=== PATIENT | female | born 1955 | race Caucasian/White ===

== ENCOUNTER 2017-05-21 23:54 | Inpatient (IN) | payer MEDICARE, OTHER ==
[~2017-05-21] VITALS: Ht 165.1 cm; Wt 78.7 kg
[~2017-05-21 23:54] MED LIST: ALPR-624 PO; ASPI81TA52 PO; CYCL-1 PO; FENTANYL PAIN PUMP; HYDR-569 PO; MELO-102 PO; METO-539 PO; NEXIUM PO; OXYC10TA47 PO; PRED20TA PO; PREG50CA PO; etomidate 2mg/ml inj. ONE; rocuronium 10mg/ml inj IV ONE
[2017-05-22] VITALS (16 sets, daily range): BP systolic 97–131; BP diastolic 60–85
[2017-05-22] MEDS ORDERED: dexamethasone sod phosphate 10mg/ml inj IV STA (00:17)
[2017-05-22] MEDS ORDERED: ipratropium/albuterol 3ml nebule NEB ONE ×2 (00:20→05:30)
[2017-05-22] MEDS ORDERED: levoFLOXACIN-Levaquin 750MG/D5 150 ML IV ONE (00:20)
[2017-05-22] MEDS ORDERED: CefTRIAXone 2gm/NS 100ml IVPB 100 ML IV ONE (00:20)
[2017-05-22 00:33] LABS: BASOPHILS # (AUTO) 0.1 X10'3 (0-0.2); BASOPHILS % (AUTO) 0.6 % (0-1); EOSINOPHILS # (AUTO) 1.1 X10'3 (0-0.9); EOSINOPHILS % (AUTO) 10.1 % (0-6); HEMATOCRIT 33.3 % (35.0-45.0); HEMOGLOBIN 10.7 g/dl (12.0-16.0); LYMPHOCYTES # (AUTO) 1.4 X10'3 (1.1-4.8); LYMPHOCYTES % (AUTO) 12.7 % (21-51); MEAN CORPUSCULAR HEMOGLOBIN 25.8 PG (27.0-31.0); MEAN CORPUSCULAR HGB CONC 32.1 % (33.0-36.5); MEAN CORPUSCULAR VOLUME 80.2 FL (78-98); MEAN PLATELET VOLUME 8.2 FL (7.4-10.4); MONOCYTES # (AUTO) 0.8 X10'3 (0-0.9); MONOCYTES % (AUTO) 6.9 % (2-12); NEUTROPHILS # (AUTO) 7.7 X10'3 (1.8-7.7); NEUTROPHILS % (AUTO) 69.7 % (42-75); PLATELET COUNT 311 X10'3 (140-440); RED BLOOD COUNT 4.15 X10'6 (4.20-5.60); RED CELL DISTRIBUTION WIDTH 17.2 % (11.5-14.5)
[2017-05-22 00:46] LABS: ABG BASE EXCESS 3.6 mmol/L (-2.0-3.0); ABG HCO3 32.4 mmol/L (22.0-26.0); ABG OXYGEN SATURATION 98.5 % (95-98); ABG PCO2 (T) 67.2 mmHg (32.0-45.0); ABG PO2 (T) 118.2 mmHg (83-108); ALLEN'S TEST Positive; FCOHb 0.7 % (0.5-1.5); FMetHb 0.3 % (0.3-1.12); FO2Hb 97.5 % (94-100); PATIENT TEMPERATURE 34.7; PEEP 8 cm H2O; TOTAL HEMOGLOBIN 11.3 G/dl (12.0-16.0)
[2017-05-22 01:05] LABS: ALANINE AMINOTRANSFERASE 21 U/L (12-78); ALBUMIN 3.3 G/DL (3.4-5.0); ALBUMIN/GLOBULIN RATIO 0.8 (1.1-1.5); ALKALINE PHOSPHATASE 160 IU/L (46-116); ANION GAP 1 (8-16); ASPARTATE AMINO TRANSFERASE 19 U/L (10-37); BILIRUBIN,TOTAL 0.3 MG/DL (0.1-1.0); BLOOD UREA NITROGEN 13 MG/DL (7-18); BUN/CREATININE RATIO 16.3 (6.6-38.0); CALCIUM 8.9 MG/DL (8.5-10.1); CHLORIDE 104 MMOL/L (99-107); GLUCOSE 121 MG/DL (70-104); POTASSIUM 4.8 MMOL/L (3.5-5.1); SODIUM 143 MMOL/L (135-145); TOTAL CARBON DIOXIDE 37.8 MMOL/L (24-32); TOTAL PROTEIN 7.3 G/DL (6.4-8.2); eGFR 72 ML/MIN
[2017-05-22 02:21] LABS: ABG BASE EXCESS 9.3 mmol/L (-2.0-3.0); ABG HCO3 37.6 mmol/L (22.0-26.0); ABG OXYGEN SATURATION 94.3 % (95-98); ABG PCO2 (T) 73.6 mmHg (32.0-45.0); ABG PH (T) 7.323 (7.350-7.450); ABG PO2 (T) 72.5 mmHg (83-108); ALLEN'S TEST Positive; FCOHb 0.6 % (0.5-1.5); FMetHb 0.1 % (0.3-1.12); FO2Hb 93.6 % (94-100); MINUTE VOLUME 8 L/min; PATIENT TEMPERATURE 36.4; PEEP 5 cm H2O; RESPIRATORY RATE 16 b/min; RESPIRATORY RATE (OBSERVED) 20 b/min; TOTAL HEMOGLOBIN 10.7 G/dl (12.0-16.0)
[2017-05-22] MEDS ORDERED: fentaNYL/PF 50MCG/1 ML 2ML syringe IV ONE (02:45)
[2017-05-22] MEDS ORDERED: propofol 1000mg/100ml bottle 100 ML IV ONE ×2 (02:45→04:37)
[2017-05-22] MEDS ORDERED: rocuronium 10mg/ml inj IV ONE (02:45)
[2017-05-22] MEDS ORDERED: MIDAZolam 5mg/ml 2ml vial IV ONE (02:45)
[2017-05-22] MEDS ORDERED: etomidate 2mg/ml inj. IV ONE (02:45)
[2017-05-22] MEDS ORDERED: ipratropium/albuterol 3ml nebule ONE (04:52)
[2017-05-22 05:31] LABS: ABG HCO3 34.7 mmol/L (22.0-26.0); ABG OXYGEN SATURATION 96.5 % (95-98); ABG PCO2 (T) 59.3 mmHg (32.0-45.0); ABG PH (T) 7.386 (7.350-7.450); FCOHb 0.7 % (0.5-1.5); FMetHb 0.1 % (0.3-1.12); FO2Hb 95.7 % (94-100); MINUTE VOLUME 7 L/min; PATIENT TEMPERATURE 37.1; PEEP 5 cm H2O; RESPIRATORY RATE 18 b/min; RESPIRATORY RATE (OBSERVED) 18 b/min; TIDAL VOLUME 400 mL; TOTAL HEMOGLOBIN 11.3 G/dl (12.0-16.0)
[2017-05-22] MEDS ORDERED: potassium Cl 40MEQ/NS 500ml 500 ML IV PRN ×2 (05:50)
[2017-05-22] MEDS ORDERED: magnesium 4gm in 100ml NS 100 ML IV PRN (05:50)
[2017-05-22] MEDS ORDERED: magnesium 2GM in 50ml NS 50 ML IV PRN (05:50)
[2017-05-22] MEDS ORDERED: midazolam 100mg in NS 100ml 100 ML IV PRN (05:58)
[2017-05-22] MEDS ORDERED: midazolam 2 mg/2 ml injection IV ONE (06:00)
[2017-05-22] MEDS ORDERED: fentaNYL/PF 50MCG/1 ML 2ML syringe IV PRN (06:00)
[2017-05-22] MEDS: ipratropium/albuterol 3ml nebule NEB SCH ×4 (07:39→20:35)
[2017-05-22 08:11] LABS: OXYGEN SATURATION (MIXED VEN) 70.9 % (60-80); PO2 MIXED VENOUS (TEMP COR) 35.7 mmHg (35-46)
[2017-05-22] MEDS: heparin, porcine 5000 units/ml vial SQ SCH ×2 (08:25→20:11)
[2017-05-22] MEDS: pantoprazole 40 MG vial IV SCH (08:25)
[2017-05-22 09:06] LABS: MAGNESIUM 2.4 MG/DL (1.5-2.4); PHOSPHORUS 4.8 MG/DL (2.3-4.5)
[2017-05-22] MEDS ORDERED: etomidate 2mg/ml inj. ONE (10:00)
[2017-05-22] MEDS: azithromycin/NS 500mg/250ml 250 ML IV SCH (10:39)
[2017-05-22] MEDS: FENTANYL-0.9 % NACL/PF 100 ML IV PRN ×2 (13:52→20:12)
[2017-05-22] MEDS ORDERED: methylPREDNISolone sod succ 125mg/2ml vial IV SCH (14:00)
[2017-05-22] MEDS: methylPREDNISolone sod succ 125mg/2ml vial IV SCH ×2 (14:41→20:11)
[2017-05-22] MEDS: lactobacillus rhamnosus 10,000 MMU CELLS/CAPSULE PO SCH (16:58)
[2017-05-22] MEDS: propofol 1000mg/100ml bottle 100 ML IV PRN (17:00)
[2017-05-23] VITALS (25 sets, daily range): BP systolic 106–132; BP diastolic 49–89
[2017-05-23 03:41] LABS: ABG BASE EXCESS 4.8 mmol/L (-2.0-3.0); ABG HCO3 29.5 mmol/L (22.0-26.0); ABG OXYGEN SATURATION 93.7 % (95-98); ABG PCO2 (T) 44.5 mmHg (32.0-45.0); ABG PO2 (T) 68.7 mmHg (83-108); FCOHb 0.3 % (0.5-1.5); FMetHb 0.3 % (0.3-1.12); FO2Hb 93.1 % (94-100); MINUTE VOLUME 7 L/min; PATIENT TEMPERATURE 37.2; PEEP 5 cm H2O; RESPIRATORY RATE 18 b/min; RESPIRATORY RATE (OBSERVED) 18 b/min; TIDAL VOLUME 400 mL; TOTAL HEMOGLOBIN 10.3 G/dl (12.0-16.0)
[2017-05-23] MEDS: FENTANYL-0.9 % NACL/PF 100 ML IV PRN ×4 (03:56→23:22)
[2017-05-23] MEDS: methylPREDNISolone sod succ 125mg/2ml vial IV SCH ×4 (03:56→19:44)
[2017-05-23 05:34] LABS: BASOPHILS % (AUTO) 0.1 % (0-1); EOSINOPHILS % (AUTO) 0.8 % (0-6); HEMATOCRIT 28.1 % (35.0-45.0); HEMOGLOBIN 9.3 g/dl (12.0-16.0); LYMPHOCYTES % (AUTO) 21.6 % (21-51); MEAN CORPUSCULAR HEMOGLOBIN 25.9 PG (27.0-31.0); MEAN CORPUSCULAR HGB CONC 33.1 % (33.0-36.5); MEAN CORPUSCULAR VOLUME 78.3 FL (78-98); MEAN PLATELET VOLUME 8.7 FL (7.4-10.4); MONOCYTES # (AUTO) 0.1 X10'3 (0-0.9); MONOCYTES % (AUTO) 2.9 % (2-12); NEUTROPHILS # (AUTO) 3.5 X10'3 (1.8-7.7); NEUTROPHILS % (AUTO) 74.6 % (42-75); PLATELET COUNT 272 X10'3 (140-440); RED BLOOD COUNT 3.59 X10'6 (4.20-5.60); RED CELL DISTRIBUTION WIDTH 16.6 % (11.5-14.5); WHITE BLOOD COUNT 4.6 X10'3 (4.5-11.0)
[2017-05-23 06:08] LABS: PARTIAL THROMBOPLASTIN TIME 29 SECONDS (22-32); PROTHROMBIN TIME 10.8 SECONDS (9.0-12.0)
[2017-05-23 06:16] LABS: ALANINE AMINOTRANSFERASE 18 U/L (12-78); ALBUMIN 2.4 G/DL (3.4-5.0); ALBUMIN/GLOBULIN RATIO 0.7 (1.1-1.5); ALKALINE PHOSPHATASE 113 IU/L (46-116); ANION GAP 5 (8-16); ASPARTATE AMINO TRANSFERASE 14 U/L (10-37); BILIRUBIN,TOTAL 0.2 MG/DL (0.1-1.0); BLOOD UREA NITROGEN 19 MG/DL (7-18); BUN/CREATININE RATIO 27.1 (6.6-38.0); CALCIUM 8.1 MG/DL (8.5-10.1); CHLORIDE 105 MMOL/L (99-107); GLUCOSE 124 MG/DL (70-104); MAGNESIUM 2.1 MG/DL (1.5-2.4); POTASSIUM 3.9 MMOL/L (3.5-5.1); SODIUM 141 MMOL/L (135-145); TOTAL CARBON DIOXIDE 31.2 MMOL/L (24-32); TOTAL PROTEIN 5.8 G/DL (6.4-8.2); eGFR 84 ML/MIN
[2017-05-23] MEDS: ipratropium/albuterol 3ml nebule NEB SCH ×3 (07:10→21:09)
[2017-05-23] MEDS: lactobacillus rhamnosus 10,000 MMU CELLS/CAPSULE PO SCH ×2 (07:53→17:38)
[2017-05-23] MEDS: pantoprazole 40 MG vial IV SCH ×2 (07:53→09:13)
[2017-05-23] MEDS: mineral oil/petrolatum ophthal oint EACHEYE SCH ×3 (08:00→19:44)
[2017-05-23] MEDS: azithromycin/NS 500mg/250ml 250 ML IV SCH (08:03)
[2017-05-23] MEDS: cefTRIAXone 1g/NS 100ml IVPB 100 ML IV SCH (09:13)
[2017-05-23] MEDS: heparin, porcine 5000 units/ml vial SQ SCH ×2 (09:14→19:44)
[2017-05-23] MEDS ORDERED: racepinephrine 11.25mg/0.5ml nebule NEB PRN (10:15)
[2017-05-23] MEDS: ipratropium/albuterol 3ml nebule NEB PRN (10:51)
[2017-05-23] MEDS: propofol 1000mg/100ml bottle 100 ML IV PRN ×3 (11:09→23:22)
[2017-05-23 16:50] LABS: ABG BASE EXCESS 4.2 mmol/L (-2.0-3.0); ABG HCO3 29.5 mmol/L (22.0-26.0); ABG OXYGEN SATURATION 93.5 % (95-98); ABG PCO2 (T) 47.6 mmHg (32.0-45.0); ABG PO2 (T) 70.7 mmHg (83-108); ALLEN'S TEST Positive; FCOHb 0.3 % (0.5-1.5); FMetHb 0.2 % (0.3-1.12); MINUTE VOLUME 10 L/min; PEEP 5 cm H2O; RESPIRATORY RATE 18 b/min; RESPIRATORY RATE (OBSERVED) 18 b/min; TIDAL VOLUME 400 mL; TOTAL HEMOGLOBIN 10.8 G/dl (12.0-16.0)
[2017-05-24] VITALS (24 sets, daily range): BP systolic 107–157; BP diastolic 65–91
[2017-05-24] MEDS ORDERED: CLON-528 PO (00:36)
[2017-05-24] MEDS ORDERED: UMEC1DIS INH (00:36)
[2017-05-24] MEDS ORDERED: ALBU18HF2 INH (00:36)
[2017-05-24] MEDS ORDERED: ESOM40CA30 PO (00:36)
[2017-05-24] MEDS ORDERED: LIOT5TAB7 PO (00:36)
[2017-05-24] MEDS ORDERED: ESCI20TA PO (00:36)
[2017-05-24] MEDS ORDERED: PROG200C7 PO (00:36)
[2017-05-24] MEDS ORDERED: ATOR10TA70 PO (00:36)
[2017-05-24] MEDS ORDERED: LEVO250T2 PO (00:36)
[2017-05-24] MEDS ORDERED: CYCL-394 PO (00:36)
[2017-05-24] MEDS ORDERED: IPRA3AMP9 IH (00:36)
[2017-05-24] MEDS ORDERED: ESCI10TA54 PO (00:36)
[2017-05-24] MEDS ORDERED: HYDR-565 PO (00:36)
[2017-05-24] MEDS: mineral oil/petrolatum ophthal oint EACHEYE SCH ×4 (01:49→19:37)
[2017-05-24] MEDS: methylPREDNISolone sod succ 125mg/2ml vial IV SCH ×4 (01:49→19:34)
[2017-05-24] MEDS: ipratropium/albuterol 3ml nebule NEB SCH ×2 (02:19→09:04)
[2017-05-24 02:21] LABS: PARTIAL THROMBOPLASTIN TIME 27 SECONDS (22-32); PROTHROMBIN TIME 10.7 SECONDS (9.0-12.0)
[2017-05-24 02:27] LABS: ALANINE AMINOTRANSFERASE 20 U/L (12-78); ALBUMIN 2.5 G/DL (3.4-5.0); ALBUMIN/GLOBULIN RATIO 0.8 (1.1-1.5); ALKALINE PHOSPHATASE 105 IU/L (46-116); ANION GAP 6 (8-16); ASPARTATE AMINO TRANSFERASE 23 U/L (10-37); BASOPHILS % (AUTO) 0.2 % (0-1); BILIRUBIN,TOTAL 0.2 MG/DL (0.1-1.0); BLOOD UREA NITROGEN 23 MG/DL (7-18); BUN/CREATININE RATIO 32.9 (6.6-38.0); CALCIUM 8.2 MG/DL (8.5-10.1); CHLORIDE 106 MMOL/L (99-107); EOSINOPHILS % (AUTO) 0.8 % (0-6); GLUCOSE 134 MG/DL (70-104); HEMATOCRIT 28.2 % (35.0-45.0); HEMOGLOBIN 9.3 g/dl (12.0-16.0); LYMPHOCYTES # (AUTO) 0.8 X10'3 (1.1-4.8); LYMPHOCYTES % (AUTO) 15.2 % (21-51); MAGNESIUM 2.1 MG/DL (1.5-2.4); MEAN CORPUSCULAR HGB CONC 32.9 % (33.0-36.5); MEAN CORPUSCULAR VOLUME 79.1 FL (78-98); MEAN PLATELET VOLUME 8.6 FL (7.4-10.4); MONOCYTES # (AUTO) 0.1 X10'3 (0-0.9); MONOCYTES % (AUTO) 2.9 % (2-12); NEUTROPHILS # (AUTO) 4.2 X10'3 (1.8-7.7); NEUTROPHILS % (AUTO) 80.9 % (42-75); PLATELET COUNT 283 X10'3 (140-440); POTASSIUM 3.5 MMOL/L (3.5-5.1); RED BLOOD COUNT 3.56 X10'6 (4.20-5.60); RED CELL DISTRIBUTION WIDTH 16.6 % (11.5-14.5); SODIUM 143 MMOL/L (135-145); TOTAL CARBON DIOXIDE 30.6 MMOL/L (24-32); TOTAL PROTEIN 5.7 G/DL (6.4-8.2); WHITE BLOOD COUNT 5.2 X10'3 (4.5-11.0); eGFR 84 ML/MIN
[2017-05-24] MEDS: propofol 1000mg/100ml bottle 100 ML IV PRN (03:09)
[2017-05-24] MEDS: FENTANYL-0.9 % NACL/PF 100 ML IV PRN ×2 (03:09→08:33)
[2017-05-24 03:16] LABS: ABG BASE EXCESS 2.9 mmol/L (-2.0-3.0); ABG HCO3 27.8 mmol/L (22.0-26.0); ABG OXYGEN SATURATION 94.5 % (95-98); ABG PCO2 (T) 44.3 mmHg (32.0-45.0); ABG PH (T) 7.416 (7.350-7.450); ABG PO2 (T) 78.5 mmHg (83-108); FCOHb 0.2 % (0.5-1.5); FMetHb 0.3 % (0.3-1.12); MINUTE VOLUME 8 L/min; PATIENT TEMPERATURE 37.2; PEEP 5 cm H2O; RESPIRATORY RATE 18 b/min; RESPIRATORY RATE (OBSERVED) 18 b/min; TIDAL VOLUME 400 mL; TOTAL HEMOGLOBIN 10.5 G/dl (12.0-16.0)
[2017-05-24] MEDS: lactobacillus rhamnosus 10,000 MMU CELLS/CAPSULE PO SCH ×2 (07:41→18:09)
[2017-05-24] MEDS: cefTRIAXone 1g/NS 100ml IVPB 100 ML IV SCH (07:42)
[2017-05-24] MEDS: heparin, porcine 5000 units/ml vial SQ SCH ×2 (07:42→19:34)
[2017-05-24] MEDS: azithromycin/NS 500mg/250ml 250 ML IV SCH (08:32)
[2017-05-24] MEDS ORDERED: ipratropium/albuterol 3ml nebule NEB PRN (10:50)
[2017-05-24] MEDS ORDERED: racepinephrine 11.25mg/0.5ml nebule NEB PRN (10:50)
[2017-05-24] MEDS: ipratropium/albuterol 3ml nebule NEB PRN (10:59)
[2017-05-24] MEDS ORDERED: albuterol 2.5 MG/3 ML nebule NEB PRN (12:15)
[2017-05-24] MEDS ORDERED: CefTRIAXone 1 gm/50ml D5W ADV 50 ML IV SCH (12:19)
[2017-05-24] MEDS: ipratropium/albuterol 3ml nebule IH SCH ×2 (14:39→23:28)
[2017-05-24] MEDS: HYDROcodone/acetaminophen 10/325mg tab PO SCH ×2 (14:51→19:36)
[2017-05-24] MEDS ORDERED: ipratropium/albuterol 3ml nebule NEB SCH (15:00)
[2017-05-24] MEDS: clonazePAM 0.5mg tablet PO SCH (19:35)
[2017-05-24] MEDS: metoprolol succinate 25mg (24-HOUR) SR. Tablet PO SCH (19:35)
[2017-05-24] MEDS: PROGESTERONE MICRONIZED 200 MG PO SCH (19:36)
[2017-05-24] MEDS: pregabalin 25mg capsule PO SCH (19:36)
[2017-05-25] VITALS (18 sets, daily range): BP systolic 109–146; BP diastolic 64–94
[2017-05-25] MEDS: mineral oil/petrolatum ophthal oint EACHEYE SCH ×4 (01:20→19:34)
[2017-05-25] MEDS: HYDROcodone/acetaminophen 10/325mg tab PO SCH ×4 (01:58→19:34)
[2017-05-25] MEDS: methylPREDNISolone sod succ 125mg/2ml vial IV SCH ×4 (01:58→19:31)
[2017-05-25 02:42] LABS: PARTIAL THROMBOPLASTIN TIME 27 SECONDS (22-32); PROTHROMBIN TIME 10.7 SECONDS (9.0-12.0)
[2017-05-25 02:48] LABS: ALANINE AMINOTRANSFERASE 24 U/L (12-78); ALBUMIN 2.8 G/DL (3.4-5.0); ALBUMIN/GLOBULIN RATIO 0.8 (1.1-1.5); ALKALINE PHOSPHATASE 106 IU/L (46-116); ANION GAP 7 (8-16); ASPARTATE AMINO TRANSFERASE 19 U/L (10-37); BILIRUBIN,TOTAL 0.3 MG/DL (0.1-1.0); BLOOD UREA NITROGEN 25 MG/DL (7-18); BUN/CREATININE RATIO 29.4 (6.6-38.0); CALCIUM 8.5 MG/DL (8.5-10.1); CHLORIDE 107 MMOL/L (99-107); CREATININE 0.85 MG/DL (0.40-0.90); GLUCOSE 132 MG/DL (70-104); MAGNESIUM 2.1 MG/DL (1.5-2.4); POTASSIUM 3.9 MMOL/L (3.5-5.1); PREALBUMIN 20.3 MG/DL (19-36); SODIUM 146 MMOL/L (135-145); TOTAL PROTEIN 6.3 G/DL (6.4-8.2); eGFR 67 ML/MIN
[2017-05-25 03:15] LABS: BASOPHILS % (AUTO) 0.1 % (0-1); EOSINOPHILS % (AUTO) 0.1 % (0-6); HEMATOCRIT 30.6 % (35.0-45.0); HEMOGLOBIN 10.2 g/dl (12.0-16.0); LYMPHOCYTES % (AUTO) 13.2 % (21-51); MEAN CORPUSCULAR HEMOGLOBIN 26.5 PG (27.0-31.0); MEAN CORPUSCULAR HGB CONC 33.4 % (33.0-36.5); MEAN CORPUSCULAR VOLUME 79.3 FL (78-98); MEAN PLATELET VOLUME 8.8 FL (7.4-10.4); MONOCYTES # (AUTO) 0.4 X10'3 (0-0.9); MONOCYTES % (AUTO) 4.9 % (2-12); NEUTROPHILS # (AUTO) 5.8 X10'3 (1.8-7.7); NEUTROPHILS % (AUTO) 81.7 % (42-75); PLATELET COUNT 321 X10'3 (140-440); RED BLOOD COUNT 3.86 X10'6 (4.20-5.60); RED CELL DISTRIBUTION WIDTH 16.1 % (11.5-14.5); WHITE BLOOD COUNT 7.2 X10'3 (4.5-11.0)
[2017-05-25] MEDS ORDERED: non-formulary drug (Esomeprazole Magnesium (Nexium) 1 CAP) PO SCH (08:00)
[2017-05-25] MEDS: Umeclidinium Brm/Vilanterol Tr (Anoro Ellipta 62.5-25 Mcg INH) IH SCH (08:00)
[2017-05-25] MEDS: pregabalin 25mg capsule PO SCH ×2 (08:04→19:34)
[2017-05-25] MEDS: lactobacillus rhamnosus 10,000 MMU CELLS/CAPSULE PO SCH ×2 (08:04→17:50)
[2017-05-25] MEDS: citalopram 20mg tablet PO SCH (08:04)
[2017-05-25] MEDS: atorvastatin 10mg tablet PO SCH (08:04)
[2017-05-25] MEDS: metoprolol succinate 25mg (24-HOUR) SR. Tablet PO SCH ×2 (08:05→19:34)
[2017-05-25] MEDS: pantoprazole 40 MG vial IV SCH (08:05)
[2017-05-25] MEDS: heparin, porcine 5000 units/ml vial SQ SCH ×2 (08:08→19:32)
[2017-05-25] MEDS: ipratropium/albuterol 3ml nebule IH SCH ×3 (08:41→23:20)
[2017-05-25] MEDS: clonazePAM 0.5mg tablet PO SCH ×2 (09:03→19:34)
[2017-05-25] MEDS: azithromycin/NS 500mg/250ml 250 ML IV SCH (09:03)
[2017-05-25] MEDS: liothyronine sod 5mcg tablet PO SCH (09:04)
[2017-05-25] MEDS ORDERED: LORazepam 2 mg/ml vial IV ONE (12:20)
[2017-05-25] MEDS: ipratropium/albuterol 3ml nebule NEB PRN ×2 (13:59→20:29)
[2017-05-25] MEDS: PROGESTERONE MICRONIZED 200 MG PO SCH (19:46)
[2017-05-26] MEDS: mineral oil/petrolatum ophthal oint EACHEYE SCH ×3 (01:31→14:26)
[2017-05-26] MEDS: ipratropium/albuterol 3ml nebule NEB PRN (02:59)
[2017-05-26 03:00] VITALS: BP 132/66
[2017-05-26] MEDS: HYDROcodone/acetaminophen 10/325mg tab PO SCH ×3 (03:00→14:25)
[2017-05-26] MEDS: methylPREDNISolone sod succ 125mg/2ml vial IV SCH ×3 (03:01→14:25)
[2017-05-26 03:39] LABS: BASOPHILS # (AUTO) 0.1 X10'3 (0-0.2); BASOPHILS % (AUTO) 0.7 % (0-1); EOSINOPHILS % (AUTO) 0 % (0-6); HEMOGLOBIN 10.4 g/dl (12.0-16.0); LYMPHOCYTES # (AUTO) 1.1 X10'3 (1.1-4.8); MEAN CORPUSCULAR HGB CONC 32.4 % (33.0-36.5); MEAN CORPUSCULAR VOLUME 80.3 FL (78-98); MEAN PLATELET VOLUME 9.3 FL (7.4-10.4); MONOCYTES # (AUTO) 0.4 X10'3 (0-0.9); MONOCYTES % (AUTO) 4.4 % (2-12); NEUTROPHILS # (AUTO) 8.2 X10'3 (1.8-7.7); NEUTROPHILS % (AUTO) 83.9 % (42-75); PLATELET COUNT 265 X10'3 (140-440); RED BLOOD COUNT 3.98 X10'6 (4.20-5.60); RED CELL DISTRIBUTION WIDTH 17.4 % (11.5-14.5); WHITE BLOOD COUNT 9.7 X10'3 (4.5-11.0)
[2017-05-26 06:00] VITALS: BP 133/81
[2017-05-26 06:48] LABS: ALANINE AMINOTRANSFERASE 27 U/L (12-78); ALBUMIN 2.8 G/DL (3.4-5.0); ALBUMIN/GLOBULIN RATIO 0.8 (1.1-1.5); ALKALINE PHOSPHATASE 108 IU/L (46-116); ANION GAP 5 (8-16); ASPARTATE AMINO TRANSFERASE 15 U/L (10-37); BILIRUBIN,TOTAL 0.2 MG/DL (0.1-1.0); BLOOD UREA NITROGEN 28 MG/DL (7-18); BUN/CREATININE RATIO 30.8 (6.6-38.0); CALCIUM 8.3 MG/DL (8.5-10.1); CHLORIDE 106 MMOL/L (99-107); CREATININE 0.91 MG/DL (0.40-0.90); GLUCOSE 130 MG/DL (70-104); MAGNESIUM 2.1 MG/DL (1.5-2.4); POTASSIUM 4.1 MMOL/L (3.5-5.1); SODIUM 146 MMOL/L (135-145); TOTAL CARBON DIOXIDE 34.6 MMOL/L (24-32); TOTAL PROTEIN 6.2 G/DL (6.4-8.2); eGFR 62 ML/MIN
[2017-05-26] MEDS: clonazePAM 0.5mg tablet PO SCH (07:51)
[2017-05-26] MEDS: atorvastatin 10mg tablet PO SCH (07:51)
[2017-05-26] MEDS: citalopram 20mg tablet PO SCH (07:52)
[2017-05-26] MEDS: lactobacillus rhamnosus 10,000 MMU CELLS/CAPSULE PO SCH (07:52)
[2017-05-26] MEDS: pregabalin 25mg capsule PO SCH (07:52)
[2017-05-26] MEDS: heparin, porcine 5000 units/ml vial SQ SCH (07:53)
[2017-05-26] MEDS: pantoprazole 40 MG vial IV SCH (07:53)
[2017-05-26] MEDS: metoprolol succinate 25mg (24-HOUR) SR. Tablet PO SCH (07:55)
[2017-05-26] MEDS: Umeclidinium Brm/Vilanterol Tr (Anoro Ellipta 62.5-25 Mcg INH) IH SCH (08:00)
[2017-05-26] MEDS: ipratropium/albuterol 3ml nebule IH SCH ×2 (09:04→15:39)
[2017-05-26] MEDS ORDERED: cefTRIAXone 1g/NS 100ml IVPB 100 ML IV SCH (09:33)
[2017-05-26] MEDS: liothyronine sod 5mcg tablet PO SCH (09:54)
[2017-05-26 11:00] VITALS: BP 142/83
[2017-05-26] MEDS ORDERED: LEVO250T2 PO (12:20)
[2017-05-26 15:00] VITALS: BP 136/76
== END 2017-05-26 18:06 | disposition home or self-care (01) | DRG 208 ==
LOC: ER 23:55 → ED HOLD 05-22 05:50 → ICU 2S 05-22 07:42 → PCU 3S 05-25 15:32
PROVIDERS: ADMIT Internal Medicine Critical Care Medicine; ATTEND Internal Medicine Critical Care Medicine
PROC: 5A09357 Assistance with Respiratory Ventilation, Less than 24 Consecutive Hours, Continuous Positive Airway Pressure (ICD-10-PCS; principal; 2017-05-22)
PROC: 5A1945Z Respiratory Ventilation, 24-96 Consecutive Hours (ICD-10-PCS; 2017-05-22)
PROC: 0BH17EZ Insertion of Endotracheal Airway into Trachea, Via Natural or Artificial Opening (ICD-10-PCS; 2017-05-22)
PROC: 02HV33Z Insertion of Infusion Device into Superior Vena Cava, Percutaneous Approach (ICD-10-PCS; 2017-05-22)
PROC: B548ZZA Ultrasonography of Superior Vena Cava, Guidance (ICD-10-PCS; 2017-05-22)
PROC: 5A1945Z Respiratory Ventilation, 24-96 Consecutive Hours (ICD-10-PCS; 2017-05-23)
PROC: 0BH17EZ Insertion of Endotracheal Airway into Trachea, Via Natural or Artificial Opening (ICD-10-PCS; 2017-05-23)
PROC: 5A09357 Assistance with Respiratory Ventilation, Less than 24 Consecutive Hours, Continuous Positive Airway Pressure (ICD-10-PCS; 2017-05-24)
DX: J96.22 Acute and chronic respiratory failure with hypercapnia (principal); J15.6 Pneumonia due to other Gram-negative bacteria; E87.4 Mixed disorder of acid-base balance; J44.0 Chronic obstructive pulmonary disease with (acute) lower respiratory infection; J44.1 Chronic obstructive pulmonary disease with (acute) exacerbation; G62.9 Polyneuropathy, unspecified; E78.00 Pure hypercholesterolemia, unspecified; F41.0 Panic disorder [episodic paroxysmal anxiety]; G89.29 Other chronic pain; F32.9 Major depressive disorder, single episode, unspecified; Z88.8 Allergy status to other drugs, medicaments and biological substances; Z79.899 Other long term (current) drug therapy; Z79.82 Long term (current) use of aspirin; Z99.81 Dependence on supplemental oxygen
CPT/HCPCS: 36415; 36556; 36600; 71045; 80053; 82803; 82810; 82948; 83605; 83735; 83880; 84100; 84134; 84145; 84443; 84484; 85018; 85025; 85610; 85730; 87040; 87070; 87077; 87186; 87502; 87503; 92616; 93005; 94002; 94003; 94640; 94660; 94760; 96365; 96368; 96375; 97110; 97116; 97162; 97530; 99291; A6213; A6257; A6258; A6449; A7015; C1751; C9113; J0456; J0696; J1100; J1644; J1956; J2060; J2250; J2704; J2930; J3010; J3490; J7030

== ENCOUNTER 2018-08-11 20:26 | Inpatient (IN) | payer MEDICARE, OTHER ==
[~2018-08-11] VITALS: Ht 167.6 cm; Wt 76.0 kg
[~2018-08-11 20:26] MED LIST changes: +ALBU18HF2 INH; -ALPR-624 PO; -ASPI81TA52 PO; +ATOR10TA70 PO; +CLON-528 PO; -CYCL-1 PO; +CYCL-394 PO; +ESCI20TA PO; +ESOM40CA49 PO; +HYDR-4353 PO; -HYDR-569 PO; +IPRA3AMP9 IH; +LEVO250T2 PO; +LIOT5TAB7 PO; -MELO-102 PO; -NEXIUM PO; -OXYC10TA47 PO; -PRED20TA PO; +PROG200C7 PO; +UMEC1DIS INH; -etomidate 2mg/ml inj. ONE; -rocuronium 10mg/ml inj IV ONE
--- NOTE | 2018-08-11 20:50 | NUR ---
PT WARM TO TOUCH, STATES SHE ONLY TOOK HER "REGULAR MEDS". RASH NOTED TO [facility]OR ARRIETA, DENIES RECENT ILLNESS.
--- NOTE | 2018-08-11 20:52 | NUR ---
OS PLACED AT 2LNC, MEDICS REPORT SAO2 IN 80'S SO O2 CONTINUED.
[2018-08-11 21:18] LABS: BASOPHILS # (AUTO) 0.1 X10'3 (0-0.2); BASOPHILS % (AUTO) 0.8 % (0-1); EOSINOPHILS # (AUTO) 0.2 X10'3 (0-0.9); EOSINOPHILS % (AUTO) 2.6 % (0-6); HEMATOCRIT 30.8 % (35.0-45.0); HEMOGLOBIN 9.9 g/dl (12.0-16.0); LYMPHOCYTES % (AUTO) 21.5 % (21-51); MEAN CORPUSCULAR HEMOGLOBIN 26.1 PG (27.0-31.0); MEAN CORPUSCULAR VOLUME 81.6 FL (78-98); MEAN PLATELET VOLUME 8.3 FL (7.4-10.4); MONOCYTES # (AUTO) 0.9 X10'3 (0-0.9); MONOCYTES % (AUTO) 9.9 % (2-12); NEUTROPHILS % (AUTO) 65.2 % (42-75); PLATELET COUNT 281 X10'3 (140-440); RED BLOOD COUNT 3.78 X10'6 (4.20-5.60); RED CELL DISTRIBUTION WIDTH 17.9 % (11.5-14.5); WHITE BLOOD COUNT 9.2 X10'3 (4.5-11.0)
[2018-08-11 21:19] LABS: CLARITY,URINE CLEAR (Clear); COLOR,URINE YELLOW (Yellow); GLUCOSE, URINE NEGATIVE (Neg); KETONES,URINE NEGATIVE (Neg); LEUKOCYTE ESTERASE ,URINE NEGATIVE (Neg); NITRITES, URINE NEGATIVE (Neg); OCCULT BLOOD,URINE MODERATE (Neg); PROTEIN,URINE NEGATIVE (Neg); UROBILINOGEN,URINE 0.2 E.U/dL (0.2-1.0)
[2018-08-11 21:20] LABS: UA COLLECTION TYPE STRAIGHT CATH
[2018-08-11 21:27] LABS: BACTERIA,URINE NONE SEEN /HPF (Neg); MUCUS STRANDS NONE SEEN /LPF (Neg); SQUAMOUS EPITHELIAL CELL,UR FEW /LPF (FEW); TRANSITIONAL EPI CELLS,URINE FEW /HPF; WBC,URINE NONE SEEN /HPF (0-4)
[2018-08-11 21:28] LABS: INR 1.1 INR; PARTIAL THROMBOPLASTIN TIME 33 SECONDS (22-32)
[2018-08-11 21:30] LABS: ALANINE AMINOTRANSFERASE 11 U/L (12-78); ALBUMIN 2.7 G/DL (3.4-5.0); ALBUMIN/GLOBULIN RATIO 0.7 (1.1-1.5); ALKALINE PHOSPHATASE 163 IU/L (46-116); ANION GAP 4 (8-16); ASPARTATE AMINO TRANSFERASE 13 U/L (10-37); BILIRUBIN,TOTAL 0.2 MG/DL (0.1-1.0); BLOOD UREA NITROGEN 9 MG/DL (7-18); BUN/CREATININE RATIO 8.9 (6.6-38.0); CALCIUM 8.4 MG/DL (8.5-10.1); CHLORIDE 103 MMOL/L (99-107); CREATININE 1.01 MG/DL (0.40-0.90); GLUCOSE 109 MG/DL (70-104); POTASSIUM 4.3 MMOL/L (3.5-5.1); SODIUM 143 MMOL/L (135-145); TOTAL CARBON DIOXIDE 36.2 MMOL/L (24-32); TOTAL PROTEIN 6.6 G/DL (6.4-8.2); eGFR 55 ML/MIN
[2018-08-11] MEDS ORDERED: normal saline 1000ML IV soln IVB ONE (22:10)
[2018-08-11 22:25] LABS: ETHANOL < 0.010 GM/DL (0.0-0.010)
[2018-08-11 22:41] LABS: URINE AMPHETAMINE SCREEN NEGATIVE (Neg); URINE BARBITUATE SCREEN NEGATIVE (Neg); URINE BENZODIAZEPINES SCREEN NEGATIVE (Neg); URINE CANNABINOID SCREEN POSITIVE (Neg); URINE COCAINE SCREEN NEGATIVE (Neg); URINE METHADONE SCREEN NEGATIVE (Neg); URINE OPIATE SCREEN POSITIVE (Neg); URINE PHENCYCLIDINE SCREEN NEGATIVE (Neg)
[2018-08-11] MEDS ORDERED: naloxone 0.4 mg/ml inj IV ONE (23:05)
[2018-08-11] MEDS ORDERED: ipratropium/albuterol 3ml nebule NEB ONE (23:20)
[2018-08-11] MEDS ORDERED: methylPREDNISolone sod succ 125mg/2ml vial IV ONE (23:20)
[2018-08-12] VITALS (24 sets, daily range): BP systolic 111–153; BP diastolic 48–100
--- NOTE | 2018-08-12 00:44 | NUR ---
ABG RESULTS OBTAINED, PLAN ADMIT TO ICU.
[2018-08-12 00:46] LABS: ABG BASE EXCESS 10.9 mmol/L (-2.0-3.0); ABG HCO3 41.2 mmol/L (22.0-26.0); ABG OXYGEN SATURATION 92.6 % (95-98); ABG PCO2 (T) 95.4 mmHg (32.0-45.0); ABG PH (T) 7.251 (7.350-7.450); ALLEN'S TEST Positive; FCOHb 4.2 % (0.5-1.5); FLOW 3 L/min; FMetHb 0.1 % (0.3-1.12); FO2Hb 88.6 % (94-100); PATIENT TEMPERATURE 36.5; RESPIRATORY RATE (OBSERVED) 12 b/min; TOTAL HEMOGLOBIN 10.8 G/dl (12.0-16.0)
[2018-08-12] MEDS ORDERED: LEVO100T PO (00:58)
[2018-08-12] MEDS ORDERED: ESCI10TA PO (00:58)
[2018-08-12] MEDS ORDERED: OMEP40CA37 PO (00:59)
[2018-08-12] MEDS ORDERED: LYR75C PO (00:59)
[2018-08-12] MEDS ORDERED: OXYC-658 PO (01:00)
[2018-08-12] MEDS ORDERED: LIOT5TAB7 PO (01:01)
--- NOTE | 2018-08-12 01:01 | NUR ---
RT AT BEDSIDE, PT PLACED ON BIPAP
[2018-08-12] MEDS ORDERED: ipratropium/albuterol 3ml nebule NEB PRN (01:20)
[2018-08-12] MEDS ORDERED: ondansetron/PF 4mg/2ml inj IV PRN (01:20)
[2018-08-12] MEDS ORDERED: potassium Cl 40MEQ/NS 500ml 500 ML IV PRN ×2 (01:20)
[2018-08-12] MEDS: K, MAG and/or Phos replacement - Verify level? MC SCH ×2 (01:20→07:40)
[2018-08-12] MEDS ORDERED: potassium Cl 20 mEq SR tablet PO PRN ×2 (01:20)
[2018-08-12] MEDS ORDERED: acetaminophen 325mg tablet PO PRN ×2 (01:20)
[2018-08-12] MEDS ORDERED: albuterol 2.5 MG/3 ML nebule NEB PRN (01:30)
[2018-08-12] MEDS: normal saline 1000ml 1,000 ML IV SCH ×2 (01:42→14:47)
--- NOTE | 2018-08-12 02:00 | NUR ---
Patient in room ICU 2039. I have received report from ZHANNA DELGADO and had the opportunity to ask questions and assume patient care.
[2018-08-12] MEDS: methylPREDNISolone sod succ/PF 40mg inj. IV SCH ×4 (02:33→19:44)
--- NOTE | 2018-08-12 02:36 | NUR ---
PT ARRIVED TO UNIT AT 0210. BIPAP IN PLACE. DOES OPEN EYES TO COMMAND, BUT THEN FALLS BACK ASLEEP. VITAL SIGNS WNL. CONTINUE TO MONITOR. REPORTED THAT FAMILY WAS WAITING TO SEE PT, BUT NO FAMILY PRESENT IN THE WAITING AREA AFTER PT WAS SETTLED.
[2018-08-12 02:41] LABS: ABG BASE EXCESS 6.4 mmol/L (-2.0-3.0); ABG HCO3 36.5 mmol/L (22.0-26.0); ABG OXYGEN SATURATION 95.9 % (95-98); ABG PCO2 (T) 87.5 mmHg (32.0-45.0); ABG PH (T) 7.236 (7.350-7.450); ABG PO2 (T) 89.5 mmHg (83-108); FCOHb 3.2 % (0.5-1.5); FO2Hb 92.8 % (94-100); PATIENT TEMPERATURE 36.5; RESPIRATORY RATE 18 b/min; RESPIRATORY RATE (OBSERVED) 18 b/min; TOTAL HEMOGLOBIN 11.5 G/dl (12.0-16.0)
[2018-08-12] MEDS: albuterol 2.5 MG/3 ML nebule NEB SCH ×4 (02:44→20:34)
[2018-08-12] MEDS: ipratropium 0.5 MG/2.5ML nebule IH SCH ×4 (02:45→20:34)
--- NOTE | 2018-08-12 02:45 | NUR ---
i notified Sunday Palacios of [employer] of 89. he is aware. gave order to reassess blood gas again at 0500. order placed and RT aware. continue to monitor.
[2018-08-12] MEDS ORDERED: ipratropium/albuterol 3ml nebule NEB ONE (03:40)
[2018-08-12 04:48] LABS: ALANINE AMINOTRANSFERASE 20 U/L (12-78); ALBUMIN 2.6 G/DL (3.4-5.0); ALBUMIN/GLOBULIN RATIO 0.7 (1.1-1.5); ALKALINE PHOSPHATASE 188 IU/L (46-116); ANION GAP 2 (8-16); ASPARTATE AMINO TRANSFERASE 25 U/L (10-37); BILIRUBIN,TOTAL 0.2 MG/DL (0.1-1.0); BLOOD UREA NITROGEN 9 MG/DL (7-18); BUN/CREATININE RATIO 10.7 (6.6-38.0); CALCIUM 8.2 MG/DL (8.5-10.1); CHLORIDE 107 MMOL/L (99-107); CREATININE 0.84 MG/DL (0.40-0.90); GLUCOSE 132 MG/DL (70-104); POTASSIUM 4.2 MMOL/L (3.5-5.1); SODIUM 143 MMOL/L (135-145); TOTAL CARBON DIOXIDE 34.4 MMOL/L (24-32); TOTAL PROTEIN 6.6 G/DL (6.4-8.2); eGFR 68 ML/MIN
[2018-08-12 04:50] LABS: BASOPHILS % (AUTO) 0.5 % (0-1); EOSINOPHILS % (AUTO) 0.1 % (0-6); HEMATOCRIT 31.4 % (35.0-45.0); HEMOGLOBIN 10.1 g/dl (12.0-16.0); LYMPHOCYTES # (AUTO) 0.4 X10'3 (1.1-4.8); LYMPHOCYTES % (AUTO) 5.4 % (21-51); MEAN CORPUSCULAR HEMOGLOBIN 26.4 PG (27.0-31.0); MEAN CORPUSCULAR HGB CONC 32.1 g/dL (33.0-36.5); MEAN CORPUSCULAR VOLUME 82.4 FL (78-98); MEAN PLATELET VOLUME 8.8 FL (7.4-10.4); MONOCYTES # (AUTO) 0.1 X10'3 (0-0.9); MONOCYTES % (AUTO) 1.5 % (2-12); NEUTROPHILS # (AUTO) 7.3 X10'3 (1.8-7.7); NEUTROPHILS % (AUTO) 92.5 % (42-75); PLATELET COUNT 264 X10'3 (140-440); RED BLOOD COUNT 3.81 X10'6 (4.20-5.60); RED CELL DISTRIBUTION WIDTH 17.9 % (11.5-14.5); WHITE BLOOD COUNT 7.8 X10'3 (4.5-11.0)
[2018-08-12 05:11] LABS: ABG BASE EXCESS 8.6 mmol/L (-2.0-3.0); ABG HCO3 37.7 mmol/L (22.0-26.0); ABG OXYGEN SATURATION 91.9 % (95-98); ABG PH (T) 7.294 (7.350-7.450); ABG PO2 (T) 64.5 mmHg (83-108); FCOHb 2.6 % (0.5-1.5); FMetHb 0.3 % (0.3-1.12); FO2Hb 89.2 % (94-100); MINUTE VOLUME 9 L/min; PATIENT TEMPERATURE 36.5; RESPIRATORY RATE 22 b/min; RESPIRATORY RATE (OBSERVED) 24 b/min
--- NOTE | 2018-08-12 06:30 | NUR ---
Patient in room ICU 2039. I have received report from SANDY Farfan and had the opportunity to ask questions and assume patient care.
--- NOTE | 2018-08-12 06:44 | NUR ---
Problems reprioritized. Patient report given, questions answered & plan of care reviewed with Eliane DELGADO.
[2018-08-12] MEDS: pantoprazole 40 MG vial IV SCH (07:39)
[2018-08-12] MEDS ORDERED: non-formulary drug (Umeclidinium Brm/Vilanterol Tr (Anoro Ellipta 62.5-25 Mcg INH) 1 PUFF) INH SCH (08:00)
[2018-08-12] MEDS: citalopram 20mg tablet PO SCH (08:00)
[2018-08-12] MEDS: levoTHYROXINE 100mcg tablet PO SCH (08:00)
[2018-08-12] MEDS: liothyronine sod 5mcg tablet PO SCH (08:00)
[2018-08-12] MEDS: metoprolol succinate 25mg (24-HOUR) SR. Tablet PO SCH ×2 (08:00→19:44)
[2018-08-12] MEDS: atorvastatin 10mg tablet PO SCH (08:00)
[2018-08-12] MEDS ORDERED: ipratropium/albuterol 3ml nebule IH SCH (16:00)
--- NOTE | 2018-08-12 18:27 | NUR ---
Problems reprioritized. Patient report given, questions answered & plan of care reviewed with SANDY Farfan.
--- NOTE | 2018-08-12 18:30 | NUR ---
Patient in room ICU 2039. I have received report from Eliane DELGADO and had the opportunity to ask questions and assume patient care.
[2018-08-13] VITALS (23 sets, daily range): BP systolic 118–162; BP diastolic 59–92
[2018-08-13] MEDS: ipratropium 0.5 MG/2.5ML nebule IH SCH ×4 (02:40→21:03)
[2018-08-13] MEDS: albuterol 2.5 MG/3 ML nebule NEB SCH ×4 (02:40→21:03)
[2018-08-13] MEDS: normal saline 1000ml 1,000 ML IV SCH (02:44)
[2018-08-13] MEDS: methylPREDNISolone sod succ/PF 40mg inj. IV SCH ×2 (02:44→07:41)
[2018-08-13 05:38] LABS: BASOPHILS % (AUTO) 0.2 % (0-1); EOSINOPHILS % (AUTO) 0 % (0-6); HEMATOCRIT 31.3 % (35.0-45.0); HEMOGLOBIN 10.2 g/dl (12.0-16.0); LYMPHOCYTES # (AUTO) 1.1 X10'3 (1.1-4.8); LYMPHOCYTES % (AUTO) 20.6 % (21-51); MEAN CORPUSCULAR HEMOGLOBIN 26.6 PG (27.0-31.0); MEAN CORPUSCULAR HGB CONC 32.5 g/dL (33.0-36.5); MEAN CORPUSCULAR VOLUME 81.8 FL (78-98); MEAN PLATELET VOLUME 9.1 FL (7.4-10.4); MONOCYTES # (AUTO) 0.3 X10'3 (0-0.9); MONOCYTES % (AUTO) 4.9 % (2-12); NEUTROPHILS # (AUTO) 3.9 X10'3 (1.8-7.7); NEUTROPHILS % (AUTO) 74.3 % (42-75); PLATELET COUNT 285 X10'3 (140-440); RED BLOOD COUNT 3.83 X10'6 (4.20-5.60); RED CELL DISTRIBUTION WIDTH 17.8 % (11.5-14.5); WHITE BLOOD COUNT 5.3 X10'3 (4.5-11.0)
[2018-08-13 06:02] LABS: ALANINE AMINOTRANSFERASE 15 U/L (12-78); ALBUMIN 2.4 G/DL (3.4-5.0); ALBUMIN/GLOBULIN RATIO 0.6 (1.1-1.5); ALKALINE PHOSPHATASE 152 IU/L (46-116); ANION GAP 3 (8-16); ASPARTATE AMINO TRANSFERASE 14 U/L (10-37); BILIRUBIN,TOTAL 0.2 MG/DL (0.1-1.0); BLOOD UREA NITROGEN 18 MG/DL (7-18); BUN/CREATININE RATIO 27.3 (6.6-38.0); CALCIUM 8.7 MG/DL (8.5-10.1); CHLORIDE 106 MMOL/L (99-107); CREATININE 0.66 MG/DL (0.40-0.90); GLUCOSE 122 MG/DL (70-104); MAGNESIUM 2.1 MG/DL (1.5-2.4); PHOSPHORUS 2.5 MG/DL (2.3-4.5); POTASSIUM 4.4 MMOL/L (3.5-5.1); SODIUM 140 MMOL/L (135-145); TOTAL CARBON DIOXIDE 31.3 MMOL/L (24-32); TOTAL PROTEIN 6.1 G/DL (6.4-8.2); eGFR 90 ML/MIN
--- NOTE | 2018-08-13 06:24 | NUR ---
Problems reprioritized. Patient report given, questions answered & plan of care reviewed with Eliane DELGADO.
--- NOTE | 2018-08-13 06:24 | NUR ---
Patient in room ICU 2039. I have received report from SANDY Farfan and had the opportunity to ask questions and assume patient care.
[2018-08-13] MEDS: pantoprazole 40 MG vial IV SCH (07:41)
[2018-08-13] MEDS: citalopram 20mg tablet PO SCH (07:42)
[2018-08-13] MEDS: atorvastatin 10mg tablet PO SCH (07:42)
[2018-08-13] MEDS: liothyronine sod 5mcg tablet PO SCH (07:42)
[2018-08-13] MEDS: metoprolol succinate 25mg (24-HOUR) SR. Tablet PO SCH ×2 (07:42→21:23)
[2018-08-13] MEDS: levoTHYROXINE 100mcg tablet PO SCH (07:42)
[2018-08-13] MEDS ORDERED: non-formulary drug (Omeprazole (Prilosec) 1 CAP) PO SCH (08:00)
[2018-08-13] MEDS: K, MAG and/or Phos replacement - Verify level? MC SCH (08:00)
--- NOTE | 2018-08-13 10:10 | NUR ---
Critical care rounds: patient update given, told MD for a second day that the UO is not increasing, still only making 10-30cc/hr and still has 75cc/hr IVF infusing. No changes in orders at this time. Informed him that CO2 levels have been WNL for over 12 hours. He states okay to advance diet to regular. I also spoke at length about her living/social situation, 's recent , pt struggling with grief, anxiety and medication management. He states she would be a good candidate for Behavioral Mental Health floor, terminal worker made aware. We also discussed the pain pump she has which I made a call about prior to rounds. I showed him the exact amount of pain medicine she's receiving per the report I got by fax from the pain clinic. See paper records in chart.
--- NOTE | 2018-08-13 12:19 | NUR ---
Pt back to bed, very difficult to calm down and reassure, very anxious.
--- NOTE | 2018-08-13 13:30 | NUR ---
call worker at bedside with patient's sister, son, brother in law. Long discussion about the need for continuing resources when at home. We discussed the patient not being ready to go home due to not being able to transfer or walk properly. We discussed the need for POA for medical and financial, home health, PT and possibly rehab. Pt willing to work with psychologist social and plan for possible home. Family in agreement she needs more support before she goes home. Dr Norwood updated. He states patient will stay in the ICU at least until tomorrow.
[2018-08-13] MEDS: nicotine 7mg patch - 24hr TD SCH (17:53)
--- NOTE | 2018-08-13 18:30 | NUR ---
Problems reprioritized. Patient report given, questions answered & plan of care reviewed with SANDY Moreno.
[2018-08-13] MEDS: HYDROcodone/acetaminophen 10/325mg tab PO PRN (22:37)
[2018-08-14] VITALS (24 sets, daily range): BP systolic 109–155; BP diastolic 51–82
--- NOTE | 2018-08-14 00:57 | NUR ---
Call placed to Maria E Palacios regarding low urine output 25ml hr x 2 hrs. Marginal output prior to that.
--- NOTE | 2018-08-14 01:29 | NUR ---
Rhythm with 6 beat run of V tach BP 145/70 denies chest pain, no SOB. Call placed to Maria E Palacios slight ST elevation noted in lead ll. EKG ordered.
[2018-08-14 01:58] LABS: BASOPHILS % (AUTO) 0.4 % (0-1); EOSINOPHILS % (AUTO) 0 % (0-6); HEMATOCRIT 32.2 % (35.0-45.0); HEMOGLOBIN 10.4 g/dl (12.0-16.0); LYMPHOCYTES # (AUTO) 1.7 X10'3 (1.1-4.8); LYMPHOCYTES % (AUTO) 20.8 % (21-51); MEAN CORPUSCULAR HEMOGLOBIN 26.5 PG (27.0-31.0); MEAN CORPUSCULAR HGB CONC 32.4 g/dL (33.0-36.5); MEAN CORPUSCULAR VOLUME 81.7 FL (78-98); MEAN PLATELET VOLUME 8.7 FL (7.4-10.4); MONOCYTES # (AUTO) 0.8 X10'3 (0-0.9); MONOCYTES % (AUTO) 9.9 % (2-12); NEUTROPHILS # (AUTO) 5.7 X10'3 (1.8-7.7); NEUTROPHILS % (AUTO) 68.9 % (42-75); PLATELET COUNT 295 X10'3 (140-440); RED BLOOD COUNT 3.94 X10'6 (4.20-5.60); RED CELL DISTRIBUTION WIDTH 17.8 % (11.5-14.5); WHITE BLOOD COUNT 8.2 X10'3 (4.5-11.0)
[2018-08-14 02:19] LABS: ALANINE AMINOTRANSFERASE 16 U/L (12-78); ALBUMIN 2.6 G/DL (3.4-5.0); ALBUMIN/GLOBULIN RATIO 0.7 (1.1-1.5); ALKALINE PHOSPHATASE 143 IU/L (46-116); ANION GAP 2 (8-16); ASPARTATE AMINO TRANSFERASE 11 U/L (10-37); BILIRUBIN,TOTAL 0.1 MG/DL (0.1-1.0); BLOOD UREA NITROGEN 23 MG/DL (7-18); BUN/CREATININE RATIO 28.4 (6.6-38.0); CALCIUM 8.8 MG/DL (8.5-10.1); CHLORIDE 104 MMOL/L (99-107); CREATININE 0.81 MG/DL (0.40-0.90); GLUCOSE 111 MG/DL (70-104); MAGNESIUM 2.1 MG/DL (1.5-2.4); PHOSPHORUS 2.3 MG/DL (2.3-4.5); SODIUM 139 MMOL/L (135-145); TOTAL CARBON DIOXIDE 33.5 MMOL/L (24-32); TOTAL PROTEIN 6.2 G/DL (6.4-8.2); eGFR 71 ML/MIN
[2018-08-14] MEDS: ipratropium 0.5 MG/2.5ML nebule IH SCH (02:45)
[2018-08-14] MEDS: albuterol 2.5 MG/3 ML nebule NEB SCH (02:45)
--- NOTE | 2018-08-14 05:51 | NUR ---
Awake most of the night. Requesting medication for anxiety, no med changes per Maria E Palacios. Remains on O2 @ 2l/min NC lungs wheezy, respiratory treatments per orders. Oxygen saturation 97-98%. SR HR 66-86.
--- NOTE | 2018-08-14 06:23 | NUR ---
Problems reprioritized. Patient report given, questions answered & plan of care reviewed with Erika DELGADO.
--- NOTE | 2018-08-14 06:23 | NUR ---
Patient in room ICU 2039. I have received report from Tiffanie DELGADO and had the opportunity to ask questions and assume patient care.
--- NOTE | 2018-08-14 06:55 | NUR ---
Pt. lying on left side with eyes closed and even and unlabored respirations.
[2018-08-14] MEDS: K, MAG and/or Phos replacement - Verify level? MC SCH (07:34)
[2018-08-14] MEDS: ipratropium/albuterol 3ml nebule NEB SCH ×3 (07:40→21:15)
[2018-08-14] MEDS: levoTHYROXINE 100mcg tablet PO SCH (07:54)
[2018-08-14] MEDS: HYDROcodone/acetaminophen 10/325mg tab PO PRN (07:54)
[2018-08-14] MEDS: liothyronine sod 5mcg tablet PO SCH (07:55)
[2018-08-14] MEDS: atorvastatin 10mg tablet PO SCH (07:55)
[2018-08-14] MEDS: pantoprazole 40 MG vial IV SCH (07:55)
[2018-08-14] MEDS: citalopram 20mg tablet PO SCH (07:55)
[2018-08-14] MEDS: predniSONE 20 mg tablet PO SCH (07:55)
[2018-08-14] MEDS: metoprolol succinate 25mg (24-HOUR) SR. Tablet PO SCH ×2 (07:57→21:06)
[2018-08-14] MEDS ORDERED: rocuronium 10mg/ml inj IV ONE (09:00)
[2018-08-14] MEDS ORDERED: 0.9 % SODIUM CHLORIDE 10 ML VIAL ONE (09:00)
[2018-08-14] MEDS ORDERED: atropine 0.1mg/ml 10ml syringe ONE (09:00)
[2018-08-14] MEDS ORDERED: etomidate 2mg/ml inj. ONE (09:00)
--- NOTE | 2018-08-14 10:33 | NUR ---
Spoke with Onur at Dr. Mcgrath's office per Dr. Norwood's request to inquire about pt's intrathecal pain pump. Onur will give a call back with info.
[2018-08-14] MEDS: nicotine 7mg patch - 24hr TD SCH (15:20)
--- NOTE | 2018-08-14 21:00 | NUR ---
Awakened for routine accucheck. Bed bath started. No distress.
[2018-08-14] MEDS: cloNIDine 0.1 mg tablet PO SCH (21:07)
--- NOTE | 2018-08-14 21:20 | NUR ---
Respiratory treatment in progress, patient became wheezy and began to desaturate, became mottled and apneic, eyes rolled back & heart rate 48. Pulse present, patient bagged with ambu bag. Code blue called. HR increased with bagging to 68.
[2018-08-14] MEDS ORDERED: midazolam 2 mg/2 ml injection ONE (21:31)
--- NOTE | 2018-08-14 21:35 | NUR ---
Patient intubated by Dr Townsend #7.5 ETT secured at 22cm gum line.
[2018-08-14] MEDS ORDERED: propofol 1000mg/100ml bottle 100 ML IV ONE (21:37)
[2018-08-14] MEDS: propofol 1000mg/100ml bottle 100 ML IV PRN (21:40)
[2018-08-14] MEDS ORDERED: propofol 1000mg/100ml bottle 100 ML IV PRN (21:43)
--- NOTE | 2018-08-14 21:45 | NUR ---
Left IJ centeral line started per Dr Hunetr, OGT also placed at this time.
[2018-08-14 22:05] LABS: ALANINE AMINOTRANSFERASE 13 U/L (12-78); ALBUMIN 2.9 G/DL (3.4-5.0); ALBUMIN/GLOBULIN RATIO 0.7 (1.1-1.5); ALKALINE PHOSPHATASE 151 IU/L (46-116); ANION GAP 8 (8-16); ASPARTATE AMINO TRANSFERASE 9 U/L (10-37); BILIRUBIN,TOTAL 0.2 MG/DL (0.1-1.0); BLOOD UREA NITROGEN 19 MG/DL (7-18); CALCIUM 9.3 MG/DL (8.5-10.1); CHLORIDE 103 MMOL/L (99-107); GLUCOSE 169 MG/DL (70-104); MAGNESIUM 2.4 MG/DL (1.5-2.4); PHOSPHORUS 4.7 MG/DL (2.3-4.5); POTASSIUM 4.4 MMOL/L (3.5-5.1); SODIUM 142 MMOL/L (135-145); TOTAL CARBON DIOXIDE 30.7 MMOL/L (24-32); TOTAL PROTEIN 6.8 G/DL (6.4-8.2); eGFR 56 ML/MIN
[2018-08-14] MEDS ORDERED: ipratropium/albuterol 3ml nebule NEB PRN (22:05)
[2018-08-14 22:06] LABS: INR 1.1 INR; PARTIAL THROMBOPLASTIN TIME 25 SECONDS (22-32)
[2018-08-14 22:10] LABS: ABG BASE EXCESS 0.7 mmol/L (-2.0-3.0); ABG HCO3 29.6 mmol/L (22.0-26.0); ABG OXYGEN SATURATION 99.6 % (95-98); ABG PH (T) 7.253 (7.350-7.450); ALLEN'S TEST Positive; FCOHb 0.3 % (0.5-1.5); FMetHb 0.1 % (0.3-1.12); FO2Hb 99.2 % (94-100); MINUTE VOLUME 6 L/min; PATIENT TEMPERATURE 36.2; PEEP 5 cm H2O; RESPIRATORY RATE 16 b/min; RESPIRATORY RATE (OBSERVED) 16 b/min; TIDAL VOLUME 425 mL; TOTAL HEMOGLOBIN 12.1 G/dl (12.0-16.0)
[2018-08-14] MEDS ORDERED: iohexol 350MG/ML 100ml bottle IV ONE (22:12)
[2018-08-14 22:47] LABS: URINE AMPHETAMINE SCREEN NEGATIVE (Neg); URINE BARBITUATE SCREEN NEGATIVE (Neg); URINE BENZODIAZEPINES SCREEN POSITIVE (Neg); URINE CANNABINOID SCREEN POSITIVE (Neg); URINE COCAINE SCREEN NEGATIVE (Neg); URINE METHADONE SCREEN NEGATIVE (Neg); URINE OPIATE SCREEN POSITIVE (Neg); URINE PHENCYCLIDINE SCREEN NEGATIVE (Neg)
[2018-08-15] VITALS (24 sets, daily range): BP systolic 94–152; BP diastolic 53–74
[2018-08-15] MEDS: dextrose 5%-1/2 normal saline 1,000 ML IV SCH ×2 (01:50→21:30)
[2018-08-15 02:51] LABS: ALANINE AMINOTRANSFERASE 13 U/L (12-78); ALBUMIN 2.6 G/DL (3.4-5.0); ALBUMIN/GLOBULIN RATIO 0.8 (1.1-1.5); ALKALINE PHOSPHATASE 134 IU/L (46-116); ANION GAP 4 (8-16); ASPARTATE AMINO TRANSFERASE 10 U/L (10-37); BILIRUBIN,TOTAL 0.3 MG/DL (0.1-1.0); BLOOD UREA NITROGEN 20 MG/DL (7-18); BUN/CREATININE RATIO 26.7 (6.6-38.0); CALCIUM 8.6 MG/DL (8.5-10.1); CHLORIDE 104 MMOL/L (99-107); CREATININE 0.75 MG/DL (0.40-0.90); GLUCOSE 136 MG/DL (70-104); PHOSPHORUS 3.2 MG/DL (2.3-4.5); POTASSIUM 3.8 MMOL/L (3.5-5.1); SODIUM 142 MMOL/L (135-145); TOTAL CARBON DIOXIDE 33.9 MMOL/L (24-32); TOTAL PROTEIN 5.9 G/DL (6.4-8.2); eGFR 78 ML/MIN
[2018-08-15] MEDS: ipratropium/albuterol 3ml nebule NEB SCH ×6 (02:52→23:53)
[2018-08-15 03:15] LABS: ABG BASE EXCESS 8.7 mmol/L (-2.0-3.0); ABG HCO3 36.9 mmol/L (22.0-26.0); ABG OXYGEN SATURATION 99.4 % (95-98); ABG PH (T) 7.328 (7.350-7.450); ABG PO2 (T) 341.9 mmHg (83-108); ALLEN'S TEST Positive; FCOHb 0.2 % (0.5-1.5); FMetHb 0.1 % (0.3-1.12); FO2Hb 99.1 % (94-100); PATIENT TEMPERATURE 37.1; PEEP 5 cm H2O; RESPIRATORY RATE 20 b/min; RESPIRATORY RATE (OBSERVED) 20 b/min; TOTAL HEMOGLOBIN 11.4 G/dl (12.0-16.0)
[2018-08-15 03:21] LABS: BASOPHILS % (AUTO) 0.3 % (0-1); EOSINOPHILS % (AUTO) 0 % (0-6); HEMATOCRIT 31.6 % (35.0-45.0); LYMPHOCYTES # (AUTO) 2.6 X10'3 (1.1-4.8); LYMPHOCYTES % (AUTO) 22.8 % (21-51); MEAN CORPUSCULAR HEMOGLOBIN 25.6 PG (27.0-31.0); MEAN CORPUSCULAR HGB CONC 31.5 g/dL (33.0-36.5); MEAN CORPUSCULAR VOLUME 81.3 FL (78-98); MEAN PLATELET VOLUME 8.6 FL (7.4-10.4); MONOCYTES # (AUTO) 1.3 X10'3 (0-0.9); MONOCYTES % (AUTO) 11.3 % (2-12); NEUTROPHILS # (AUTO) 7.3 X10'3 (1.8-7.7); NEUTROPHILS % (AUTO) 65.6 % (42-75); PLATELET COUNT 284 X10'3 (140-440); RED BLOOD COUNT 3.89 X10'6 (4.20-5.60); WHITE BLOOD COUNT 11.2 X10'3 (4.5-11.0)
--- NOTE | 2018-08-15 06:27 | NUR ---
Problems reprioritized. Patient report given, questions answered & plan of care reviewed with Mari RN.
[2018-08-15] MEDS: propofol 1000mg/100ml bottle 100 ML IV PRN ×2 (07:10→23:11)
[2018-08-15] MEDS: pantoprazole 40mg Tablet.DR PO SCH (07:49)
[2018-08-15] MEDS: K, MAG and/or Phos replacement - Verify level? MC SCH (08:00)
[2018-08-15] MEDS: predniSONE 20 mg tablet PO SCH (09:19)
[2018-08-15] MEDS: levoTHYROXINE 100mcg tablet PO SCH (09:23)
[2018-08-15] MEDS: metoprolol succinate 25mg (24-HOUR) SR. Tablet PO SCH ×2 (09:23→20:00)
[2018-08-15] MEDS: liothyronine sod 5mcg tablet PO SCH (09:23)
[2018-08-15] MEDS: cloNIDine 0.1 mg tablet PO SCH ×2 (09:23→20:00)
[2018-08-15] MEDS: citalopram 20mg tablet PO SCH (09:23)
[2018-08-15] MEDS: atorvastatin 10mg tablet PO SCH (09:23)
[2018-08-15] MEDS: enoxaparin 40mg/0.4ml syringe SQ SCH (10:42)
--- NOTE | 2018-08-15 10:53 | NUR ---
TF Consult: Pt intubated s/p respiratory code. OG in place w/ TF to start today per . MAP 92. No BM yet since admit 08/12. Will monitor for TF tolerance. Rec: 1. OGTF using Vital HP at 70ml/hr goal; to provide 1680ml fluid, 1411ml free water, 1680kcals, and 147g protein. Initiate at 20ml/hr and advance 20ml Q8 to goal as tolerated. 2. water flush 200ml Q4 3. prealbumin Q /, daily wts 4. monitor for TF tolerance 5. routine bowel care 6. upon extubation; advance diet per MD to heart healthy Addendum: 08/15/18 at [address] Amended: Links added.
[2018-08-15] MEDS: nicotine 7mg patch - 24hr TD SCH (15:00)
[2018-08-15] MEDS: piperacillin/tazo 3.375gm/50ml 50 ML IV SCH (15:31)
[2018-08-15] MEDS: lactobacillus rhamnosus 10,000 MMU CELLS/CAPSULE PO SCH (20:55)
[2018-08-15] MEDS: HYDROcodone/acetaminophen 10/325mg tab PO PRN (23:58)
[2018-08-16] VITALS (23 sets, daily range): BP systolic 101–152; BP diastolic 51–79
[2018-08-16] MEDS: piperacillin/tazo 3.375gm/50ml 50 ML IV SCH ×3 (00:16→16:09)
[2018-08-16] MEDS: dextrose 5%-1/2 normal saline 1,000 ML IV SCH (00:17)
[2018-08-16] MEDS ORDERED: mineral oil/petrolatum ophthal oint EACHEYE SCH (02:00)
[2018-08-16 02:55] LABS: BASOPHILS % (AUTO) 0.2 % (0-1); EOSINOPHILS % (AUTO) 0.2 % (0-6); HEMATOCRIT 29.6 % (35.0-45.0); HEMOGLOBIN 9.6 g/dl (12.0-16.0); LYMPHOCYTES # (AUTO) 2.1 X10'3 (1.1-4.8); LYMPHOCYTES % (AUTO) 24.5 % (21-51); MEAN CORPUSCULAR HEMOGLOBIN 26.3 PG (27.0-31.0); MEAN CORPUSCULAR HGB CONC 32.4 g/dL (33.0-36.5); MEAN PLATELET VOLUME 8.8 FL (7.4-10.4); MONOCYTES # (AUTO) 0.9 X10'3 (0-0.9); MONOCYTES % (AUTO) 10.8 % (2-12); NEUTROPHILS # (AUTO) 5.5 X10'3 (1.8-7.7); NEUTROPHILS % (AUTO) 64.3 % (42-75); PLATELET COUNT 235 X10'3 (140-440); RED BLOOD COUNT 3.65 X10'6 (4.20-5.60); RED CELL DISTRIBUTION WIDTH 18.2 % (11.5-14.5); WHITE BLOOD COUNT 8.5 X10'3 (4.5-11.0)
[2018-08-16 03:25] LABS: ALANINE AMINOTRANSFERASE 17 U/L (12-78); ALBUMIN 2.3 G/DL (3.4-5.0); ALBUMIN/GLOBULIN RATIO 0.7 (1.1-1.5); ALKALINE PHOSPHATASE 111 IU/L (46-116); ANION GAP 2 (8-16); ASPARTATE AMINO TRANSFERASE 21 U/L (10-37); BILIRUBIN,TOTAL 0.1 MG/DL (0.1-1.0); BLOOD UREA NITROGEN 12 MG/DL (7-18); CALCIUM 8.6 MG/DL (8.5-10.1); CHLORIDE 105 MMOL/L (99-107); GLUCOSE 103 MG/DL (70-104); MAGNESIUM 1.9 MG/DL (1.5-2.4); PHOSPHORUS 2.2 MG/DL (2.3-4.5); POTASSIUM 3.4 MMOL/L (3.5-5.1); PREALBUMIN 18.8 MG/DL (19-36); SODIUM 142 MMOL/L (135-145); TOTAL CARBON DIOXIDE 35.1 MMOL/L (24-32); TOTAL PROTEIN 5.4 G/DL (6.4-8.2); eGFR 72 ML/MIN
[2018-08-16] MEDS: ipratropium/albuterol 3ml nebule NEB SCH ×6 (03:31→23:58)
[2018-08-16] MEDS: mineral oil/petrolatum ophthal oint EACHEYE SCH ×4 (04:01→20:00)
[2018-08-16 04:51] LABS: ABG BASE EXCESS 8.8 mmol/L (-2.0-3.0); ABG OXYGEN SATURATION 88.7 % (95-98); ABG PCO2 (T) 50.4 mmHg (32.0-45.0); ABG PH (T) 7.447 (7.350-7.450); ABG PO2 (T) 55.5 mmHg (83-108); ALLEN'S TEST Positive; FCOHb 0.3 % (0.5-1.5); FMetHb 0.1 % (0.3-1.12); FO2Hb 88.3 % (94-100); MINUTE VOLUME 8 L/min; PEEP 5 cm H2O; RESPIRATORY RATE 20 b/min; RESPIRATORY RATE (OBSERVED) 20 b/min; TOTAL HEMOGLOBIN 10.4 G/dl (12.0-16.0)
[2018-08-16] MEDS ORDERED: potassium Cl 40MEQ/250ML bag 250 ML IV PRN ×2 (05:45)
--- NOTE | 2018-08-16 07:01 | NUR ---
Tube feed increased from 30 to 40
[2018-08-16] MEDS: K and/or MAG REPLACEMENT MC SCH (08:00)
[2018-08-16] MEDS: K, MAG and/or Phos replacement - Verify level? MC SCH (08:00)
[2018-08-16] MEDS: metoprolol succinate 25mg (24-HOUR) SR. Tablet PO SCH ×2 (08:00→20:00)
[2018-08-16] MEDS: propofol 1000mg/100ml bottle 100 ML IV PRN ×2 (08:09→12:27)
--- NOTE | 2018-08-16 09:39 | NUR ---
Sister came by to visit. Took house coronel with permission from patient. Also reported that she has the patients necklace
[2018-08-16] MEDS: cloNIDine 0.1 mg tablet PO SCH ×2 (10:27→21:28)
[2018-08-16] MEDS: pantoprazole 40mg Tablet.DR PO SCH (10:27)
[2018-08-16] MEDS: predniSONE 20 mg tablet PO SCH (10:27)
[2018-08-16] MEDS: atorvastatin 10mg tablet PO SCH (10:27)
[2018-08-16] MEDS: citalopram 20mg tablet PO SCH (10:27)
[2018-08-16] MEDS: lactobacillus rhamnosus 10,000 MMU CELLS/CAPSULE PO SCH ×2 (10:27→21:28)
[2018-08-16] MEDS: levoTHYROXINE 100mcg tablet PO SCH (10:27)
[2018-08-16] MEDS: enoxaparin 40mg/0.4ml syringe SQ SCH (10:28)
--- NOTE | 2018-08-16 12:20 | NUR ---
Extubated per MD order. placed on 2L NC with EtCo2 monitoring. Patient tolerated well
[2018-08-16] MEDS: nicotine 7mg patch - 24hr TD SCH (15:00)
--- NOTE | 2018-08-16 15:00 | NUR ---
ST paged for BSS
--- NOTE | 2018-08-16 18:30 | NUR ---
Patient in room ICU 2040. I have received report from Michael DELGADO and had the opportunity to ask questions and assume patient care.
--- NOTE | 2018-08-16 18:39 | NUR ---
Dr Zazueta called to check on patient after consult days prior. He was made aware patient now intubated. He states we can call him when she's more medically stable if we need more of his thoughts or assistance with mental health medicine. He states he will check back next week.
[2018-08-16] MEDS: HYDROcodone/acetaminophen 10/325mg tab PO PRN (21:28)
[2018-08-17] VITALS (25 sets, daily range): BP systolic 120–190; BP diastolic 57–88
[2018-08-17] MEDS: mineral oil/petrolatum ophthal oint EACHEYE SCH ×4 (00:05→20:00)
[2018-08-17] MEDS: piperacillin/tazo 3.375gm/50ml 50 ML IV SCH ×3 (00:05→17:00)
--- NOTE | 2018-08-17 02:15 | NUR ---
Pt appears to be sleeping. Tolerating 2LNC, able to maintain airway, strong cough when awake. Uses flutter valve w/encouragement.
[2018-08-17 02:40] LABS: BASOPHILS # (AUTO) 0.1 X10'3 (0-0.2); BASOPHILS % (AUTO) 0.9 % (0-1); EOSINOPHILS % (AUTO) 0.1 % (0-6); HEMATOCRIT 29.1 % (35.0-45.0); HEMOGLOBIN 9.4 g/dl (12.0-16.0); LYMPHOCYTES # (AUTO) 2.4 X10'3 (1.1-4.8); LYMPHOCYTES % (AUTO) 27.1 % (21-51); MEAN CORPUSCULAR HEMOGLOBIN 26.5 PG (27.0-31.0); MEAN CORPUSCULAR HGB CONC 32.4 g/dL (33.0-36.5); MEAN CORPUSCULAR VOLUME 81.9 FL (78-98); MEAN PLATELET VOLUME 8.6 FL (7.4-10.4); MONOCYTES # (AUTO) 0.8 X10'3 (0-0.9); NEUTROPHILS # (AUTO) 5.6 X10'3 (1.8-7.7); NEUTROPHILS % (AUTO) 62.9 % (42-75); PLATELET COUNT 241 X10'3 (140-440); RED BLOOD COUNT 3.55 X10'6 (4.20-5.60); RED CELL DISTRIBUTION WIDTH 17.8 % (11.5-14.5); WHITE BLOOD COUNT 8.9 X10'3 (4.5-11.0)
[2018-08-17 02:49] LABS: ALANINE AMINOTRANSFERASE 9 U/L (12-78); ALBUMIN 2.4 G/DL (3.4-5.0); ALBUMIN/GLOBULIN RATIO 0.8 (1.1-1.5); ALKALINE PHOSPHATASE 110 IU/L (46-116); ANION GAP 3 (8-16); ASPARTATE AMINO TRANSFERASE 6 U/L (10-37); BILIRUBIN,TOTAL 0.4 MG/DL (0.1-1.0); BLOOD UREA NITROGEN 11 MG/DL (7-18); BUN/CREATININE RATIO 15.7 (6.6-38.0); CALCIUM 8.3 MG/DL (8.5-10.1); CHLORIDE 104 MMOL/L (99-107); GLUCOSE 98 MG/DL (70-104); MAGNESIUM 1.9 MG/DL (1.5-2.4); PHOSPHORUS 2.8 MG/DL (2.3-4.5); POTASSIUM 3.7 MMOL/L (3.5-5.1); SODIUM 141 MMOL/L (135-145); TOTAL CARBON DIOXIDE 34.4 MMOL/L (24-32); TOTAL PROTEIN 5.5 G/DL (6.4-8.2); eGFR 84 ML/MIN
[2018-08-17] MEDS: ipratropium/albuterol 3ml nebule NEB SCH ×5 (03:48→20:48)
--- NOTE | 2018-08-17 06:38 | NUR ---
Problems reprioritized. Patient report given, questions answered & plan of care reviewed with Michael DELGADO.
[2018-08-17] MEDS: K, MAG and/or Phos replacement - Verify level? MC SCH (08:00)
[2018-08-17] MEDS: K and/or MAG REPLACEMENT MC SCH (08:00)
[2018-08-17] MEDS: levoTHYROXINE 100mcg tablet PO SCH (08:14)
[2018-08-17] MEDS: cloNIDine 0.1 mg tablet PO SCH ×2 (08:17→20:13)
[2018-08-17] MEDS: citalopram 20mg tablet PO SCH (08:17)
[2018-08-17] MEDS: metoprolol succinate 25mg (24-HOUR) SR. Tablet PO SCH ×2 (08:17→20:12)
[2018-08-17] MEDS: lactobacillus rhamnosus 10,000 MMU CELLS/CAPSULE PO SCH ×2 (08:19→20:13)
[2018-08-17] MEDS: pantoprazole 40mg Tablet.DR PO SCH (08:19)
[2018-08-17] MEDS: atorvastatin 10mg tablet PO SCH (08:19)
[2018-08-17] MEDS: predniSONE 20 mg tablet PO SCH (08:19)
[2018-08-17] MEDS: HYDROcodone/acetaminophen 10/325mg tab PO PRN ×2 (08:22→17:00)
[2018-08-17] MEDS: enoxaparin 40mg/0.4ml syringe SQ SCH (08:23)
--- NOTE | 2018-08-17 12:59 | NUR ---
Reassessment: Pt has been extubated and TF removed. Pt s/p BSS on 08/16 with SENIOR IT RECRUITER recs pureed food with honey thick liquid, pending documented PO intake since diet advancement. Pt still with no BM since 08/13. Pt pending transfer to to PCU per MD notes. Will continue to follow. Rec: 1. Continue pureed food with honey thick liquids per SENIOR IT RECRUITER 2. Advance to heart healthy diet as medically indicated 3. Monitor need for ONS 4. Routine bowel care 5. Wt per rx Addendum: 08/17/18 at [address] Amended: Links added.
[2018-08-17] MEDS ORDERED: cloNIDine 0.1 mg tablet PO ONE (14:15)
[2018-08-17] MEDS: nicotine 7mg patch - 24hr TD SCH (15:00)
--- NOTE | 2018-08-17 23:10 | NUR ---
Patient in room ICU 2040. I have received report from GERMAN DELGADO and had the opportunity to ask questions and assume patient care.
[2018-08-18] MEDS: ipratropium/albuterol 3ml nebule NEB SCH ×4 (00:07→11:23)
[2018-08-18] MEDS: HYDROcodone/acetaminophen 10/325mg tab PO PRN ×4 (00:12→13:04)
[2018-08-18] MEDS: piperacillin/tazo 3.375gm/50ml 50 ML IV SCH ×2 (00:25→07:56)
[2018-08-18 02:00] VITALS: BP 120/78
[2018-08-18] MEDS: mineral oil/petrolatum ophthal oint EACHEYE SCH (02:00)
[2018-08-18 05:35] LABS: ALANINE AMINOTRANSFERASE 13 U/L (12-78); ALBUMIN 2.6 G/DL (3.4-5.0); ALBUMIN/GLOBULIN RATIO 0.8 (1.1-1.5); ALKALINE PHOSPHATASE 111 IU/L (46-116); ANION GAP 3 (8-16); ASPARTATE AMINO TRANSFERASE 10 U/L (10-37); BILIRUBIN,TOTAL 0.4 MG/DL (0.1-1.0); BLOOD UREA NITROGEN 12 MG/DL (7-18); BUN/CREATININE RATIO 15.2 (6.6-38.0); CALCIUM 8.3 MG/DL (8.5-10.1); CHLORIDE 103 MMOL/L (99-107); CREATININE 0.79 MG/DL (0.40-0.90); GLUCOSE 93 MG/DL (70-104); MAGNESIUM 1.9 MG/DL (1.5-2.4); PHOSPHORUS 3.3 MG/DL (2.3-4.5); POTASSIUM 3.7 MMOL/L (3.5-5.1); SODIUM 140 MMOL/L (135-145); TOTAL CARBON DIOXIDE 34.4 MMOL/L (24-32); eGFR 73 ML/MIN
[2018-08-18 05:43] LABS: BASOPHILS % (AUTO) 0.1 % (0-1); EOSINOPHILS # (AUTO) 0.1 X10'3 (0-0.9); EOSINOPHILS % (AUTO) 0.6 % (0-6); HEMATOCRIT 29.9 % (35.0-45.0); HEMOGLOBIN 9.9 g/dl (12.0-16.0); LYMPHOCYTES % (AUTO) 35.2 % (21-51); MEAN CORPUSCULAR HEMOGLOBIN 26.8 PG (27.0-31.0); MEAN CORPUSCULAR HGB CONC 33.2 g/dL (33.0-36.5); MEAN CORPUSCULAR VOLUME 80.7 FL (78-98); MEAN PLATELET VOLUME 8.8 FL (7.4-10.4); MONOCYTES # (AUTO) 0.8 X10'3 (0-0.9); MONOCYTES % (AUTO) 9.6 % (2-12); NEUTROPHILS # (AUTO) 4.7 X10'3 (1.8-7.7); NEUTROPHILS % (AUTO) 54.5 % (42-75); PLATELET COUNT 252 X10'3 (140-440); RED BLOOD COUNT 3.71 X10'6 (4.20-5.60); RED CELL DISTRIBUTION WIDTH 18.2 % (11.5-14.5); WHITE BLOOD COUNT 8.6 X10'3 (4.5-11.0)
--- NOTE | 2018-08-18 06:00 | NUR ---
Assumed patient care ASHLEIGH Calero RN
--- NOTE | 2018-08-18 06:17 | NUR ---
Problems reprioritized. Patient report given, questions answered & plan of care reviewed with MARION DELGADO.
[2018-08-18] MEDS: cloNIDine 0.1 mg tablet PO SCH (07:57)
[2018-08-18] MEDS: levoTHYROXINE 100mcg tablet PO SCH (07:58)
[2018-08-18] MEDS: metoprolol succinate 25mg (24-HOUR) SR. Tablet PO SCH (07:58)
[2018-08-18] MEDS: atorvastatin 10mg tablet PO SCH (07:58)
[2018-08-18] MEDS: citalopram 20mg tablet PO SCH (07:58)
[2018-08-18] MEDS: pantoprazole 40mg Tablet.DR PO SCH (07:58)
[2018-08-18] MEDS: lactobacillus rhamnosus 10,000 MMU CELLS/CAPSULE PO SCH (07:58)
[2018-08-18] MEDS: predniSONE 20 mg tablet PO SCH (07:58)
[2018-08-18] MEDS: enoxaparin 40mg/0.4ml syringe SQ SCH (07:59)
[2018-08-18] MEDS: K, MAG and/or Phos replacement - Verify level? MC SCH (08:00)
[2018-08-18] MEDS: K and/or MAG REPLACEMENT MC SCH (08:00)
[2018-08-18] MEDS ORDERED: docusate sod 100mg capsule PO SCH (10:00)
[2018-08-18] MEDS ORDERED: METO-539 PO (10:23)
[2018-08-18] MEDS ORDERED: CLON0.1T20 PO (10:23)
[2018-08-18] MEDS ORDERED: PRED10TA PO (10:23)
[2018-08-18] MEDS ORDERED: NICO-630 TD (10:23)
[2018-08-18] MEDS ORDERED: SULF1TAB49 PO (10:23)
[2018-08-18 11:11] VITALS: BP 120/61
--- NOTE | 2018-08-18 14:45 | NUR ---
D/C order received @ 0900 patient has no ride home. Sister come to pick patient up. Medication called to [facility] on [facility], IJ line removed no bleeding dressing applied Patient D/C home with family.All instruction given ,no question Milagro Calero RN
== END 2018-08-18 15:09 | disposition home or self-care (01) | DRG 208 ==
LOC: ER 20:26 → ICU 2S 08-12 02:11 → CMPBEDREQ 08-12 02:59 → ICU 2S 08-14 23:04 → PCU 3S 08-17 23:55
PROVIDERS: ATTEND Family Medicine
PROC: 5A1945Z Respiratory Ventilation, 24-96 Consecutive Hours (ICD-10-PCS; principal; 2018-08-14)
PROC: 0BH17EZ Insertion of Endotracheal Airway into Trachea, Via Natural or Artificial Opening (ICD-10-PCS; 2018-08-14)
PROC: 02H633Z Insertion of Infusion Device into Right Atrium, Percutaneous Approach (ICD-10-PCS; 2018-08-14)
PROC: B244ZZZ Ultrasonography of Right Heart (ICD-10-PCS; 2018-08-14)
PROC: BW241ZZ Computerized Tomography (CT Scan) of Chest and Abdomen using Low Osmolar Contrast (ICD-10-PCS; 2018-08-14)
DX: J96.21 Acute and chronic respiratory failure with hypoxia (principal); G92 Toxic encephalopathy; E43 Unspecified severe protein-calorie malnutrition; J44.1 Chronic obstructive pulmonary disease with (acute) exacerbation; E87.2 Acidosis; J98.11 Atelectasis; N17.9 Acute kidney failure, unspecified; N39.0 Urinary tract infection, site not specified; F11.20 Opioid dependence, uncomplicated; J96.22 Acute and chronic respiratory failure with hypercapnia; T50.995A Adverse effect of other drugs, medicaments and biological substances, initial encounter; D64.9 Anemia, unspecified; E03.9 Hypothyroidism, unspecified; E78.00 Pure hypercholesterolemia, unspecified; E87.6 Hypokalemia; F32.9 Major depressive disorder, single episode, unspecified; G89.29 Other chronic pain; I10 Essential (primary) hypertension; G62.9 Polyneuropathy, unspecified; F12.90 Cannabis use, unspecified, uncomplicated; F17.200 Nicotine dependence, unspecified, uncomplicated; Z88.8 Allergy status to other drugs, medicaments and biological substances; Z68.27 Body mass index [BMI] 27.0-27.9, adult
CPT/HCPCS: 36415; 36600; 70450; 71045; 71275; 80053; 80305; 80320; 81001; 82803; 82948; 83605; 83735; 84100; 84134; 84145; 84443; 85018; 85025; 85379; 85610; 85730; 87040; 87070; 87077; 87186; 92508; 92616; 92950; 93005; 94002; 94003; 94640; 94660; 94667; 94668; 94760; 96361; 96374; 96375; 97110; 97116; 97162; 97530; 99291; C9113; G0378; J0461; J1650; J2250; J2310; J2543; J2704; J2920; J2930; J3480; J3490; J7512; Q9967

== ENCOUNTER 2019-04-18 23:38 | Inpatient (IN) | payer MEDICARE, OTHER ==
[~2019-04-18] VITALS: Ht 165.1 cm; Wt 80.3 kg
[~2019-04-18 23:38] MED LIST changes: -CLON-528 PO; +CLON0.1T2 PO; -CYCL-394 PO; +ESCI10TA PO; -ESCI20TA PO; -ESOM40CA49 PO; -FENTANYL PAIN PUMP; -HYDR-4353 PO; +LEVO100T PO; -LEVO250T2 PO; -LIOT5TAB7 PO; +LYR75C PO; +NICO-630 TD; +OMEP40CA13 PO; +PRED10TA PO; -PREG50CA PO; -PROG200C7 PO
[2019-04-18] MEDS ORDERED: etomidate 2mg/ml inj. IV ONE (23:42)
[2019-04-18] MEDS ORDERED: rocuronium 10mg/ml inj IV ONE (23:43)
[2019-04-18] MEDS ORDERED: FENTANYL-0.9 % NACL/PF 100 ML IV PRN (23:44)
[2019-04-18] MEDS ORDERED: ipratropium/albuterol 3ml nebule NEB ONE ×2 (23:50)
[2019-04-18] MEDS ORDERED: methylPREDNISolone sod succ 125mg/2ml vial IV ONE (23:50)
[2019-04-18] MEDS ORDERED: CefTRIAXone/D5W-Rocephin 1gm 50 ML IV ONE (23:55)
[2019-04-18] MEDS ORDERED: azithromycin/NS 500mg/250ml 250 ML IV ONE (23:55)
[2019-04-18 23:58] LABS: HEMOGLOBIN 13.5 g/dl (12.0-16.0); MEAN CORPUSCULAR HEMOGLOBIN 27.8 PG (27.0-31.0); MEAN CORPUSCULAR HGB CONC 31.9 g/dL (33.0-36.5); MEAN CORPUSCULAR VOLUME 87.2 FL (78-98)
[2019-04-18 23:59] LABS: HEMATOCRIT 42.2 % (35.0-45.0); MEAN PLATELET VOLUME 8.1 FL (7.4-10.4); PLATELET COUNT 271 X10'3 (140-440); RED BLOOD COUNT 4.84 X10'6 (4.20-5.60); RED CELL DISTRIBUTION WIDTH 17.7 % (11.5-14.5); WHITE BLOOD COUNT 20.6 X10'3 (4.5-11.0)
[2019-04-19] VITALS (22 sets, daily range): BP systolic 100–157; BP diastolic 55–83
[2019-04-19] LABS: LYMPHOCYTES % (AUTO) 7.8 % (21-51)
[2019-04-19 00:01] LABS: BASOPHILS # (AUTO) 0.2 X10'3 (0-0.2); BASOPHILS % (AUTO) 1.1 % (0-1); EOSINOPHILS % (AUTO) 0.1 % (0-6); LYMPHOCYTES # (AUTO) 1.6 X10'3 (1.1-4.8); MONOCYTES # (AUTO) 1.8 X10'3 (0-0.9); NEUTROPHILS # (AUTO) 16.8 X10'3 (1.8-7.7)
[2019-04-19] MEDS: midazolam 100mg in NS 100ml 100 ML IV PRN (00:03)
[2019-04-19 00:05] LABS: PARTIAL THROMBOPLASTIN TIME 25 SECONDS (22-32)
[2019-04-19 00:08] LABS: ALANINE AMINOTRANSFERASE 29 U/L (12-78); ALBUMIN 3.1 G/DL (3.4-5.0); ALBUMIN/GLOBULIN RATIO 0.9 (1.1-1.5); ALKALINE PHOSPHATASE 122 IU/L (46-116); ASPARTATE AMINO TRANSFERASE 13 U/L (10-37); BILIRUBIN,TOTAL 0.4 MG/DL (0.1-1.0); BLOOD UREA NITROGEN 30 MG/DL (7-18); BUN/CREATININE RATIO 36.6 (6.6-38.0); CALCIUM 9.8 MG/DL (8.5-10.1); CHLORIDE 105 MMOL/L (99-107); CREATININE 0.82 MG/DL (0.40-0.90); GLUCOSE 114 MG/DL (70-104); POTASSIUM 5.3 MMOL/L (3.5-5.1); SODIUM 154 MMOL/L (135-145); TOTAL PROTEIN 6.5 G/DL (6.4-8.2); eGFR 70 ML/MIN
[2019-04-19] MEDS: FENTANYL-0.9 % NACL/PF 100 ML IV PRN (00:14)
[2019-04-19 00:16] LABS: MAGNESIUM 2.3 MG/DL (1.5-2.4)
[2019-04-19 00:17] LABS: CLARITY,URINE CLEAR (Clear); COLOR,URINE YELLOW (Yellow); GLUCOSE, URINE 100 mg/dl (Neg); KETONES,URINE NEGATIVE (Neg); LEUKOCYTE ESTERASE ,URINE NEGATIVE (Neg); NITRITES, URINE NEGATIVE (Neg); OCCULT BLOOD,URINE MODERATE (Neg); PH,URINE 5.5 (4.8-8.0); PROTEIN,URINE 100 mg/dl (Neg); UROBILINOGEN,URINE 0.2 E.U/dL (0.2-1.0)
[2019-04-19 00:21] LABS: UA COLLECTION TYPE FOLEY CATH
[2019-04-19 00:22] LABS: ANION GAP -1 (8-16)
[2019-04-19 00:24] LABS: TOTAL CARBON DIOXIDE > 50 MMOL/L (24-32)
[2019-04-19 00:26] LABS: ABG BASE EXCESS 16.5 mmol/L (-2.0-3.0); ABG HCO3 44.7 mmol/L (22.0-26.0); ABG OXYGEN SATURATION 98.5 % (95-98); ABG PCO2 (T) 72.5 mmHg (35.0-45.0); ABG PH (T) 7.411 (7.350-7.450); ABG PO2 (T) 140.7 mmHg (83-108); FCOHb 2.8 % (0.5-1.5); FMetHb 0.1 % (0.3-1.12); FO2Hb 95.6 % (94-100); MINUTE VOLUME 6 L/min; PATIENT TEMPERATURE 37.5; PEEP 5 cm H2O; RESPIRATORY RATE 14 b/min; RESPIRATORY RATE (OBSERVED) 14 b/min; TIDAL VOLUME 400 mL; TOTAL HEMOGLOBIN 13.9 G/dl (12.0-16.0)
[2019-04-19 00:27] LABS: BACTERIA,URINE NONE SEEN /HPF (Neg); MUCUS STRANDS NONE SEEN /LPF (Neg); RBC,URINE 0-2 /HPF (0-2); SQUAMOUS EPITHELIAL CELL,UR FEW /LPF (FEW); TRANSITIONAL EPI CELLS,URINE FEW /HPF; WBC,URINE NONE SEEN /HPF (0-4)
[2019-04-19] MEDS ORDERED: FENTANYL-0.9 % NACL/PF 100 ML IV PRN (00:36)
[2019-04-19] MEDS ORDERED: midazolam 100mg in NS 100ml 100 ML IV PRN (00:36)
[2019-04-19] MEDS ORDERED: acetaminophen 325mg tablet PO PRN ×2 (00:40)
[2019-04-19] MEDS ORDERED: potassium Cl 20 mEq SR tablet PO PRN (00:40)
[2019-04-19] MEDS: K, MAG and/or Phos replacement - Verify level? MC SCH ×2 (00:40→08:00)
[2019-04-19] MEDS ORDERED: potassium CL 10mEq/100ml bag 100 ML IV PRN ×2 (00:40)
[2019-04-19] MEDS ORDERED: magnesium hydroxide 30ml (MOM) UD suspension PO PRN (00:40)
[2019-04-19] MEDS ORDERED: LEVO100T9 PO (00:44)
[2019-04-19] MEDS ORDERED: OXYB-58 PO (00:44)
[2019-04-19] MEDS ORDERED: SERT25TA5 PO (00:44)
[2019-04-19] MEDS ORDERED: CYCL-1 PO (00:44)
[2019-04-19] MEDS ORDERED: METO50TA16 PO ×2 (00:44→00:51)
[2019-04-19] MEDS: normal saline 1000ml 1,000 ML IV SCH ×4 (01:26→17:47)
--- NOTE | 2019-04-19 02:15 | NUR ---
RN Note -Received pt from OR on summer intubated and sedated. BUI, agitated and bucks vent upon waking.
[2019-04-19] MEDS ORDERED: albuterol 2.5 MG/3 ML nebule NEB PRN (02:40)
[2019-04-19] MEDS: ipratropium/albuterol 3ml nebule NEB PRN ×4 (03:05→16:53)
[2019-04-19] MEDS: methylPREDNISolone sod succ/PF 40mg inj. IV SCH ×4 (03:38→20:53)
[2019-04-19 04:40] LABS: ABG BASE EXCESS 15.8 mmol/L (-2.0-3.0); ABG HCO3 40.9 mmol/L (22.0-26.0); ABG OXYGEN SATURATION 93.1 % (95-98); ABG PCO2 (T) 52.1 mmHg (35.0-45.0); ABG PH (T) 7.514 (7.350-7.450); ABG PO2 (T) 66.8 mmHg (83-108); FCOHb 1.9 % (0.5-1.5); FMetHb 0.3 % (0.3-1.12); FO2Hb 91.1 % (94-100); MINUTE VOLUME 6 L/min; PATIENT TEMPERATURE 37.3; PEEP 5 cm H2O; RESPIRATORY RATE 14 b/min; RESPIRATORY RATE (OBSERVED) 14 b/min; TIDAL VOLUME 400 mL; TOTAL HEMOGLOBIN 12.6 G/dl (12.0-16.0)
[2019-04-19] MEDS: DITROPAN 5 MG PO SCH (08:00)
[2019-04-19 08:40] LABS: ALANINE AMINOTRANSFERASE 27 U/L (12-78); ALBUMIN 2.7 G/DL (3.4-5.0); ALKALINE PHOSPHATASE 99 IU/L (46-116); ANION GAP -5 (8-16); ASPARTATE AMINO TRANSFERASE 24 U/L (10-37); BILIRUBIN,TOTAL 1.1 MG/DL (0.1-1.0); BLOOD UREA NITROGEN 29 MG/DL (7-18); BUN/CREATININE RATIO 31.9 (6.6-38.0); CHLORIDE 107 MMOL/L (99-107); CREATININE 0.91 MG/DL (0.40-0.90); GLUCOSE 192 MG/DL (70-104); PHOSPHORUS 1.6 MG/DL (2.3-4.5); POTASSIUM 5.1 MMOL/L (3.5-5.1); SODIUM 148 MMOL/L (135-145); TOTAL PROTEIN 5.5 G/DL (6.4-8.2); eGFR 62 ML/MIN
[2019-04-19] MEDS: pantoprazole 40 MG vial IV SCH (08:48)
[2019-04-19 08:59] LABS: TOTAL CARBON DIOXIDE 46.2 MMOL/L (24-32)
[2019-04-19] MEDS: levoTHYROXINE 100mcg tablet PO SCH (09:09)
[2019-04-19] MEDS: atorvastatin 10mg tablet PO SCH (09:09)
[2019-04-19] MEDS: sertraline 25mg tablet PO SCH (09:09)
[2019-04-19] MEDS: metoprolol tartrate 50mg tablet PO SCH ×2 (09:09→20:52)
[2019-04-19] MEDS: enoxaparin 40mg/0.4ml syringe SUBCUT SCH (09:10)
[2019-04-19] MEDS: CefTRIAXone 2gm/D5W 50ml 50 ML IV SCH (09:11)
[2019-04-19] MEDS: azithromycin/NS 500mg/250ml 250 ML IV SCH (09:11)
[2019-04-19 11:03] LABS: BASOPHILS % (AUTO) 0.2 % (0-1); EOSINOPHILS % (AUTO) 0 % (0-6); HEMATOCRIT 34.3 % (35.0-45.0); HEMOGLOBIN 11.2 g/dl (12.0-16.0); LYMPHOCYTES # (AUTO) 0.4 X10'3 (1.1-4.8); LYMPHOCYTES % (AUTO) 3.8 % (21-51); MEAN CORPUSCULAR HGB CONC 32.6 g/dL (33.0-36.5); MEAN CORPUSCULAR VOLUME 85.8 FL (78-98); MEAN PLATELET VOLUME 8.3 FL (7.4-10.4); MONOCYTES # (AUTO) 0.3 X10'3 (0-0.9); MONOCYTES % (AUTO) 2.8 % (2-12); NEUTROPHILS % (AUTO) 93.2 % (42-75); PLATELET COUNT 213 X10'3 (140-440); RED CELL DISTRIBUTION WIDTH 17.1 % (11.5-14.5); WHITE BLOOD COUNT 10.7 X10'3 (4.5-11.0)
[2019-04-19] MEDS ORDERED: sod chloride 0.9% 10ml flush syringe IV ONE (14:00)
[2019-04-19] MEDS ORDERED: rocuronium 10mg/ml inj IV ONE (14:00)
[2019-04-19] MEDS ORDERED: etomidate 2mg/ml inj. ONE (14:00)
--- NOTE | 2019-04-19 15:38 | NUR ---
Notified MD of elevated blood glucose levels and that she is not on hyperglycemic protocol; no new orders
--- NOTE | 2019-04-19 16:09 | NUR ---
Patient is intubated and sedated d/t respiratory failure and COPD exacerbation, per note possible extubation today or tomorrow, no TF at this time d/t likely extubation. Addendum: 04/19/19 at [address] Amended: Links added.
[2019-04-19] MEDS ORDERED: ASPI-611 PO (16:40)
[2019-04-20] VITALS (24 sets, daily range): BP systolic 92–186; BP diastolic 82–104
[2019-04-20] MEDS: mineral oil/petrolatum ophthal oint EACHEYE SCH ×4 (02:00→20:08)
[2019-04-20] MEDS: methylPREDNISolone sod succ/PF 40mg inj. IV SCH ×4 (02:57→20:06)
[2019-04-20 05:16] LABS: ABG BASE EXCESS 11.1 mmol/L (-2.0-3.0); ABG HCO3 36.9 mmol/L (22.0-26.0); ABG OXYGEN SATURATION 89.2 % (95-98); ABG PCO2 (T) 53.7 mmHg (35.0-45.0); ABG PH (T) 7.454 (7.350-7.450); ABG PO2 (T) 53.9 mmHg (83-108); ALLEN'S TEST Positive; FCOHb 0.5 % (0.5-1.5); FMetHb 0.1 % (0.3-1.12); FO2Hb 88.7 % (94-100); MINUTE VOLUME 6 L/min; PATIENT TEMPERATURE 36.6; PEEP 5 cm H2O; RESPIRATORY RATE 12 b/min; RESPIRATORY RATE (OBSERVED) 16 b/min; TIDAL VOLUME 350 mL; TOTAL HEMOGLOBIN 12.2 G/dl (12.0-16.0)
[2019-04-20 05:57] LABS: BASOPHILS % (AUTO) 0.1 % (0-1); EOSINOPHILS % (AUTO) 0 % (0-6); HEMATOCRIT 37.5 % (35.0-45.0); HEMOGLOBIN 12.4 g/dl (12.0-16.0); LYMPHOCYTES # (AUTO) 0.7 X10'3 (1.1-4.8); LYMPHOCYTES % (AUTO) 7.1 % (21-51); MEAN CORPUSCULAR HEMOGLOBIN 27.9 PG (27.0-31.0); MEAN CORPUSCULAR VOLUME 84.6 FL (78-98); MEAN PLATELET VOLUME 8.3 FL (7.4-10.4); MONOCYTES # (AUTO) 0.4 X10'3 (0-0.9); MONOCYTES % (AUTO) 4.4 % (2-12); NEUTROPHILS # (AUTO) 8.2 X10'3 (1.8-7.7); NEUTROPHILS % (AUTO) 88.4 % (42-75); PLATELET COUNT 231 X10'3 (140-440); RED BLOOD COUNT 4.43 X10'6 (4.20-5.60); RED CELL DISTRIBUTION WIDTH 17.2 % (11.5-14.5); WHITE BLOOD COUNT 9.2 X10'3 (4.5-11.0)
[2019-04-20 06:16] LABS: ALANINE AMINOTRANSFERASE 24 U/L (12-78); ALBUMIN 2.6 G/DL (3.4-5.0); ALBUMIN/GLOBULIN RATIO 0.9 (1.1-1.5); ALKALINE PHOSPHATASE 92 IU/L (46-116); ANION GAP -1 (8-16); ASPARTATE AMINO TRANSFERASE 13 U/L (10-37); BILIRUBIN,TOTAL 0.7 MG/DL (0.1-1.0); BLOOD UREA NITROGEN 28 MG/DL (7-18); BUN/CREATININE RATIO 31.8 (6.6-38.0); CALCIUM 8.5 MG/DL (8.5-10.1); CHLORIDE 107 MMOL/L (99-107); CREATININE 0.88 MG/DL (0.40-0.90); PHOSPHORUS 2.9 MG/DL (2.3-4.5); POTASSIUM 3.7 MMOL/L (3.5-5.1); SODIUM 145 MMOL/L (135-145); TOTAL PROTEIN 5.4 G/DL (6.4-8.2); eGFR 64 ML/MIN
[2019-04-20 06:17] LABS: GLUCOSE 181 MG/DL (70-104)
--- NOTE | 2019-04-20 06:17 | NUR ---
RN Note -Family Communication RE: Recent History Pt's daughter brought in last known list of pt's medications. Reported that pt handles her own medications and that she is concerned about all the medications she takes and possible interactions. Daughter also reports that during her recent admission to [facility] she was resistant to steroid treatment because of the steroids she takes at home and that she required a high dose, then had difficulty obtaining her prescription upon discharge in order to properly taper the steroids. According to daughter, the pt's [facility] ER visit that was 2 days prior to arriving at our ER was for a rapid heart rate, which she had been experiencing for about 2 weeks.
[2019-04-20] MEDS: K, MAG and/or Phos replacement - Verify level? MC SCH (08:00)
[2019-04-20] MEDS: DITROPAN 5 MG PO SCH (08:00)
[2019-04-20] MEDS: azithromycin/NS 500mg/250ml 250 ML IV SCH (08:48)
[2019-04-20] MEDS: CefTRIAXone 2gm/D5W 50ml 50 ML IV SCH (08:48)
[2019-04-20] MEDS: pantoprazole 40 MG vial IV SCH (08:49)
[2019-04-20] MEDS: atorvastatin 10mg tablet PO SCH (08:57)
[2019-04-20] MEDS: sertraline 25mg tablet PO SCH (08:57)
[2019-04-20] MEDS: levoTHYROXINE 100mcg tablet PO SCH (08:57)
[2019-04-20] MEDS: metoprolol tartrate 50mg tablet PO SCH ×2 (08:57→20:06)
[2019-04-20] MEDS: enoxaparin 40mg/0.4ml syringe SUBCUT SCH (08:59)
[2019-04-20] MEDS ORDERED: dexmedetomidine inj. 400 MCG in normal saline 100ml IV soln 100 ML IV PRN ×2 (10:55→11:06)
[2019-04-20] MEDS: dexmedetomidin/NS 400mcg/100ml 100 ML IV SCH ×2 (13:53→20:56)
[2019-04-20] MEDS: FENTANYL-0.9 % NACL/PF 100 ML IV PRN (16:43)
[2019-04-20] MEDS: midazolam 100mg in NS 100ml 100 ML IV PRN (18:25)
--- NOTE | 2019-04-20 18:25 | NUR ---
Patient in room CICU 2009. I have received report from Michael DELGADO and had the opportunity to ask questions and assume patient care. Patient intubated and sedated, currently calm. Patient sturating at 94% on 25% FIO2, on A/C PRVC mode. Vitals WNL at this time except for BP, which is slightly elevated at 171/95 via automatic cuff. Will continue to monitor patient closely.
[2019-04-20] MEDS: lactobacillus rhamnosus 10,000 MMU CELLS/CAPSULE PO SCH (20:06)
[2019-04-20] MEDS: normal saline 1000ml 1,000 ML IV SCH (21:25)
[2019-04-21] VITALS (23 sets, daily range): BP systolic 128–199; BP diastolic 75–93
[2019-04-21] MEDS: hydrALAZINE 20mg/ml inj. IV PRN ×2 (00:38→12:38)
[2019-04-21] MEDS: methylPREDNISolone sod succ/PF 40mg inj. IV SCH ×4 (02:19→21:00)
[2019-04-21] MEDS: mineral oil/petrolatum ophthal oint EACHEYE SCH ×4 (02:20→21:00)
[2019-04-21 04:25] LABS: ABG BASE EXCESS 7.1 mmol/L (-2.0-3.0); ABG HCO3 32.5 mmol/L (22.0-26.0); ABG OXYGEN SATURATION 92.7 % (95-98); ABG PCO2 (T) 49.1 mmHg (35.0-45.0); ABG PH (T) 7.438 (7.350-7.450); ABG PO2 (T) 64.4 mmHg (83-108); ALLEN'S TEST Positive; FCOHb 0.4 % (0.5-1.5); FMetHb 0.1 % (0.3-1.12); FO2Hb 92.2 % (94-100); MINUTE VOLUME 7 L/min; PATIENT TEMPERATURE 36.7; PEEP 5 cm H2O; RESPIRATORY RATE 12 b/min; RESPIRATORY RATE (OBSERVED) 17 b/min; TIDAL VOLUME 350 mL; TOTAL HEMOGLOBIN 12.5 G/dl (12.0-16.0)
[2019-04-21] MEDS: dexmedetomidin/NS 400mcg/100ml 100 ML IV SCH ×4 (05:32→22:44)
[2019-04-21] MEDS: FENTANYL-0.9 % NACL/PF 100 ML IV PRN ×2 (05:32→18:57)
[2019-04-21 05:37] LABS: ALANINE AMINOTRANSFERASE 24 U/L (12-78); ALBUMIN 2.4 G/DL (3.4-5.0); ALBUMIN/GLOBULIN RATIO 0.8 (1.1-1.5); ALKALINE PHOSPHATASE 83 IU/L (46-116); ANION GAP 5 (8-16); ASPARTATE AMINO TRANSFERASE 11 U/L (10-37); BILIRUBIN,TOTAL 0.4 MG/DL (0.1-1.0); BLOOD UREA NITROGEN 32 MG/DL (7-18); BUN/CREATININE RATIO 42.1 (6.6-38.0); CALCIUM 8.1 MG/DL (8.5-10.1); CHLORIDE 105 MMOL/L (99-107); CREATININE 0.76 MG/DL (0.40-0.90); GLUCOSE 185 MG/DL (70-104); MAGNESIUM 1.9 MG/DL (1.5-2.4); PHOSPHORUS 3.2 MG/DL (2.3-4.5); POTASSIUM 3.8 MMOL/L (3.5-5.1); SODIUM 143 MMOL/L (135-145); TOTAL CARBON DIOXIDE 33.3 MMOL/L (24-32); TOTAL PROTEIN 5.3 G/DL (6.4-8.2); eGFR 76 ML/MIN
--- NOTE | 2019-04-21 05:55 | NUR ---
Patient became extremely anxious with turn, RR in 40s and HR in 120s. Patient opened eyes, looked at me when instructed to look at me, but would not calm down. Multiple sedation boluses given to achieve calm state. Patient now calm again with RR at 19, HR back to SR in 80s. BP 194/101 after sedation boluses. Will continue to monitor patient closely.
[2019-04-21] MEDS: normal saline 1000ml 1,000 ML IV SCH ×2 (05:56→19:16)
[2019-04-21 06:06] LABS: BASOPHILS % (AUTO) 0.2 % (0-1); EOSINOPHILS % (AUTO) 0 % (0-6); HEMOGLOBIN 11.7 g/dl (12.0-16.0); LYMPHOCYTES # (AUTO) 0.6 X10'3 (1.1-4.8); LYMPHOCYTES % (AUTO) 7.8 % (21-51); MEAN CORPUSCULAR HEMOGLOBIN 28.1 PG (27.0-31.0); MEAN CORPUSCULAR HGB CONC 33.6 g/dL (33.0-36.5); MEAN CORPUSCULAR VOLUME 83.8 FL (78-98); MEAN PLATELET VOLUME 8.4 FL (7.4-10.4); MONOCYTES # (AUTO) 0.4 X10'3 (0-0.9); NEUTROPHILS # (AUTO) 6.3 X10'3 (1.8-7.7); PLATELET COUNT 207 X10'3 (140-440); RED BLOOD COUNT 4.17 X10'6 (4.20-5.60); WHITE BLOOD COUNT 7.3 X10'3 (4.5-11.0)
--- NOTE | 2019-04-21 06:31 | NUR ---
Problems reprioritized. Patient report given, questions answered & plan of care reviewed with Klarissa DELGADO.
[2019-04-21] MEDS: pantoprazole 40 MG vial IV SCH (07:18)
[2019-04-21] MEDS: CefTRIAXone 2gm/D5W 50ml 50 ML IV SCH (07:18)
[2019-04-21] MEDS: levoTHYROXINE 100mcg tablet PO SCH (07:19)
[2019-04-21] MEDS: sertraline 25mg tablet PO SCH (07:19)
[2019-04-21] MEDS: atorvastatin 10mg tablet PO SCH (07:19)
[2019-04-21] MEDS: lactobacillus rhamnosus 10,000 MMU CELLS/CAPSULE PO SCH ×2 (07:19→20:58)
[2019-04-21] MEDS: metoprolol tartrate 50mg tablet PO SCH ×2 (07:19→20:59)
[2019-04-21] MEDS: azithromycin/NS 500mg/250ml 250 ML IV SCH (07:20)
[2019-04-21] MEDS: enoxaparin 40mg/0.4ml syringe SUBCUT SCH (07:20)
[2019-04-21] MEDS: K, MAG and/or Phos replacement - Verify level? MC SCH (08:00)
[2019-04-21] MEDS ORDERED: dextrose ORAL solution 15 GM/59 ML bottle PO PRN (08:20)
[2019-04-21] MEDS ORDERED: MESSAGE TO PHARMACY PO ONE (08:20)
[2019-04-21] MEDS ORDERED: glucagon, human recombinant 1mg kit SUBCUT PRN (08:20)
[2019-04-21] MEDS ORDERED: dextrose 50%-water 50ml dispensing syringe IV PRN ×2 (08:20)
[2019-04-21] MEDS: oxybutynin 5mg tablet PO SCH ×2 (08:55→20:59)
[2019-04-21] MEDS: docusate sodium 100mg/10ml UD cup OGT SCH ×2 (08:55→20:59)
[2019-04-21] MEDS ORDERED: ipratropium/albuterol 3ml nebule NEB PRN (10:55)
[2019-04-21] MEDS: ipratropium/albuterol 3ml nebule NEB SCH ×4 (11:00→22:31)
--- NOTE | 2019-04-21 12:55 | NUR ---
Initial: Patient intubated d/t respiratory failure and COPD exacerbation. OG in place w/ day 3 NPO and no nutrition at this time per yard switcher. Pt to receive precedex in order to get weaning parameters per MD note. Rusty 12 w/ skin intact. MAP 96 today. EN recs below in case prolonged intubation. Will continue to monitor. Rec: 1. IF OGTF; Vital High Protein at 70ml/hr 2. upon extubation; advance diet as medically indicated to heart healthy 3. routine bowel care 4. wt per rx Addendum: 04/21/19 at [address] Amended: Links added.
[2019-04-21] MEDS: insulin Lispro (HumaLOG) vial - multi-dose SQ SCH ×2 (13:56→21:04)
--- NOTE | 2019-04-21 18:20 | NUR ---
Patient in room CICU 2009. I have received report from Klarissa DELGADO and had the opportunity to ask questions and assume patient care. Patient in bed, intubated via endotracheal tube, vent at 25% Fio2 with spo2 at 92%, patient opens eyes spontaneously, moves all four extremities to command. Fentanyl drip and Precedex drip for pain control and sedation, will titrate medications per protocol, see IV spreadsheet and Interventions for further information. All monitoring alarms audible. Will continue to monitor.
[2019-04-21] MEDS: insulin glargine (Lantus) pen - multi-dose SQ SCH (21:03)
[2019-04-22] VITALS (24 sets, daily range): BP systolic 131–204; BP diastolic 65–100
[2019-04-22] MEDS: ipratropium/albuterol 3ml nebule NEB SCH ×4 (02:31→20:23)
[2019-04-22] MEDS: normal saline 1000ml 1,000 ML IV SCH ×2 (02:38→21:57)
[2019-04-22] MEDS: methylPREDNISolone sod succ/PF 40mg inj. IV SCH ×4 (02:39→20:25)
[2019-04-22] MEDS: dexmedetomidin/NS 400mcg/100ml 100 ML IV SCH ×3 (02:51→10:52)
[2019-04-22] MEDS: insulin Lispro (HumaLOG) vial - multi-dose SQ SCH ×2 (02:54→08:28)
[2019-04-22] MEDS: mineral oil/petrolatum ophthal oint EACHEYE SCH ×4 (02:55→20:00)
[2019-04-22 04:16] LABS: ABG BASE EXCESS 3.4 mmol/L (-2.0-3.0); ABG HCO3 28.6 mmol/L (22.0-26.0); ABG OXYGEN SATURATION 90.1 % (95-98); ABG PCO2 (T) 44.9 mmHg (35.0-45.0); ABG PO2 (T) 57.4 mmHg (83-108); ALLEN'S TEST Positive; FCOHb 0.1 % (0.5-1.5); FMetHb 0.1 % (0.3-1.12); FO2Hb 89.9 % (94-100); MINUTE VOLUME 7 L/min; PATIENT TEMPERATURE 36.6; PEEP 5 cm H2O; RESPIRATORY RATE 12 b/min; RESPIRATORY RATE (OBSERVED) 17 b/min; TIDAL VOLUME 350 mL; TOTAL HEMOGLOBIN 12.7 G/dl (12.0-16.0)
[2019-04-22] MEDS: FENTANYL-0.9 % NACL/PF 100 ML IV PRN (04:41)
[2019-04-22 05:04] LABS: ALANINE AMINOTRANSFERASE 26 U/L (12-78); ALBUMIN 2.6 G/DL (3.4-5.0); ALKALINE PHOSPHATASE 81 IU/L (46-116); ANION GAP 4 (8-16); ASPARTATE AMINO TRANSFERASE 10 U/L (10-37); BILIRUBIN,TOTAL 0.3 MG/DL (0.1-1.0); BLOOD UREA NITROGEN 28 MG/DL (7-18); BUN/CREATININE RATIO 37.8 (6.6-38.0); CALCIUM 8.3 MG/DL (8.5-10.1); CHLORIDE 108 MMOL/L (99-107); CREATININE 0.74 MG/DL (0.40-0.90); GLUCOSE 180 MG/DL (70-104); MAGNESIUM 1.9 MG/DL (1.5-2.4); PHOSPHORUS 2.6 MG/DL (2.3-4.5); POTASSIUM 3.6 MMOL/L (3.5-5.1); SODIUM 144 MMOL/L (135-145); TOTAL CARBON DIOXIDE 32.5 MMOL/L (24-32); TOTAL PROTEIN 5.3 G/DL (6.4-8.2); eGFR 79 ML/MIN
[2019-04-22 05:12] LABS: BASOPHILS % (AUTO) 0.1 % (0-1); EOSINOPHILS % (AUTO) 0 % (0-6); HEMATOCRIT 35.7 % (35.0-45.0); HEMOGLOBIN 12.1 g/dl (12.0-16.0); LYMPHOCYTES # (AUTO) 0.2 X10'3 (1.1-4.8); LYMPHOCYTES % (AUTO) 2.7 % (21-51); MEAN CORPUSCULAR HEMOGLOBIN 28.2 PG (27.0-31.0); MEAN CORPUSCULAR HGB CONC 33.8 g/dL (33.0-36.5); MEAN CORPUSCULAR VOLUME 83.4 FL (78-98); MEAN PLATELET VOLUME 8.3 FL (7.4-10.4); MONOCYTES # (AUTO) 0.3 X10'3 (0-0.9); MONOCYTES % (AUTO) 4.1 % (2-12); NEUTROPHILS # (AUTO) 7.7 X10'3 (1.8-7.7); NEUTROPHILS % (AUTO) 93.1 % (42-75); PLATELET COUNT 194 X10'3 (140-440); RED BLOOD COUNT 4.29 X10'6 (4.20-5.60); RED CELL DISTRIBUTION WIDTH 16.8 % (11.5-14.5); WHITE BLOOD COUNT 8.2 X10'3 (4.5-11.0)
[2019-04-22] MEDS: CefTRIAXone 2gm/D5W 50ml 50 ML IV SCH (07:34)
[2019-04-22] MEDS: azithromycin/NS 500mg/250ml 250 ML IV SCH (07:34)
[2019-04-22] MEDS: enoxaparin 40mg/0.4ml syringe SUBCUT SCH (07:35)
[2019-04-22] MEDS: sertraline 25mg tablet PO SCH (07:36)
[2019-04-22] MEDS: lactobacillus rhamnosus 10,000 MMU CELLS/CAPSULE PO SCH ×2 (07:36→20:24)
[2019-04-22] MEDS: pantoprazole 40 MG vial IV SCH (07:36)
[2019-04-22] MEDS: metoprolol tartrate 50mg tablet PO SCH ×2 (07:36→20:25)
[2019-04-22] MEDS: levoTHYROXINE 100mcg tablet PO SCH (07:36)
[2019-04-22] MEDS: docusate sodium 100mg/10ml UD cup OGT SCH ×2 (07:36→20:25)
[2019-04-22] MEDS: oxybutynin 5mg tablet PO SCH ×2 (07:37→20:24)
[2019-04-22] MEDS: atorvastatin 10mg tablet PO SCH (07:37)
[2019-04-22] MEDS: K, MAG and/or Phos replacement - Verify level? MC SCH (08:00)
[2019-04-22] MEDS ORDERED: racepinephrine 11.25mg/0.5ml nebule NEB PRN (09:20)
[2019-04-22] MEDS ORDERED: ipratropium/albuterol 3ml nebule NEB PRN (09:20)
[2019-04-22] MEDS: hydrALAZINE 20mg/ml inj. IV PRN ×2 (14:42→18:06)
--- NOTE | 2019-04-22 14:56 | NUR ---
Follow up: patient extubated today. Still NPO. Will follow. Addendum: 04/22/19 at [address] Amended: Links added.
--- NOTE | 2019-04-22 18:15 | NUR ---
Patient in room CICU 2009. I have received report from SANDY Yates and had the opportunity to ask questions and assume patient care.
[2019-04-22] MEDS: insulin glargine (Lantus) pen - multi-dose SQ SCH (21:22)
--- NOTE | 2019-04-22 23:00 | NUR ---
MD notified Patient SBP sustaining in 170's. HR in 120s Sinus Tach. received orders. Will continue to monitor.
[2019-04-22] MEDS ORDERED: metoprolol tartrate 1mg/ml inj IV ONE (23:05)
[2019-04-22] MEDS: temazepam 15mg capsule PO PRN (23:32)
[2019-04-23] VITALS (17 sets, daily range): BP systolic 143–195; BP diastolic 71–104
[2019-04-23] MEDS: ondansetron/PF 4mg/2ml inj IV PRN ×2 (01:51→07:34)
[2019-04-23] MEDS: methylPREDNISolone sod succ/PF 40mg inj. IV SCH ×4 (01:52→20:35)
[2019-04-23] MEDS: mineral oil/petrolatum ophthal oint EACHEYE SCH (02:00)
[2019-04-23] MEDS: ipratropium/albuterol 3ml nebule NEB SCH ×4 (02:44→20:12)
[2019-04-23] MEDS: HYDROcodone/acetaminophen 5mg/325mg tablet PO PRN ×2 (04:56→09:02)
[2019-04-23] MEDS: hydrALAZINE 20mg/ml inj. IV PRN (05:07)
[2019-04-23 05:41] LABS: BASOPHILS % (AUTO) 0.1 % (0-1); EOSINOPHILS % (AUTO) 0 % (0-6); HEMATOCRIT 42.6 % (35.0-45.0); LYMPHOCYTES # (AUTO) 0.6 X10'3 (1.1-4.8); LYMPHOCYTES % (AUTO) 4.7 % (21-51); MEAN CORPUSCULAR HEMOGLOBIN 27.4 PG (27.0-31.0); MEAN CORPUSCULAR HGB CONC 32.8 g/dL (33.0-36.5); MEAN CORPUSCULAR VOLUME 83.7 FL (78-98); MEAN PLATELET VOLUME 8.5 FL (7.4-10.4); MONOCYTES # (AUTO) 0.6 X10'3 (0-0.9); MONOCYTES % (AUTO) 4.2 % (2-12); NEUTROPHILS # (AUTO) 12.2 X10'3 (1.8-7.7); PLATELET COUNT 289 X10'3 (140-440); RED BLOOD COUNT 5.09 X10'6 (4.20-5.60); RED CELL DISTRIBUTION WIDTH 17.4 % (11.5-14.5); WHITE BLOOD COUNT 13.4 X10'3 (4.5-11.0)
--- NOTE | 2019-04-23 05:48 | NUR ---
Patient complaining of nausea and Left upper abdomen pain. assessments made with all findings WNL. Charge nurse notified for second opinion. concluded patient previously had large amounts of gastric drainage with NG tube that was previously used, possibly gas build up or need for BM. Would recommend getting patient up to chair and bowel care during day the day. patient vomited 400cc of brown vomit. patient has eaten 3 red sugar free jellos on my shift.
[2019-04-23 05:58] LABS: ALANINE AMINOTRANSFERASE 35 U/L (12-78); ALBUMIN 2.7 G/DL (3.4-5.0); ALBUMIN/GLOBULIN RATIO 0.8 (1.1-1.5); ALKALINE PHOSPHATASE 93 IU/L (46-116); ANION GAP 5 (8-16); ASPARTATE AMINO TRANSFERASE 14 U/L (10-37); BILIRUBIN,TOTAL 0.4 MG/DL (0.1-1.0); BLOOD UREA NITROGEN 22 MG/DL (7-18); BUN/CREATININE RATIO 28.2 (6.6-38.0); CALCIUM 8.6 MG/DL (8.5-10.1); CHLORIDE 108 MMOL/L (99-107); CREATININE 0.78 MG/DL (0.40-0.90); GLUCOSE 137 MG/DL (70-104); MAGNESIUM 2.1 MG/DL (1.5-2.4); PHOSPHORUS 3.3 MG/DL (2.3-4.5); POTASSIUM 3.1 MMOL/L (3.5-5.1); SODIUM 147 MMOL/L (135-145); TOTAL CARBON DIOXIDE 34.3 MMOL/L (24-32); TOTAL PROTEIN 5.9 G/DL (6.4-8.2); eGFR 74 ML/MIN
--- NOTE | 2019-04-23 06:14 | NUR ---
Patient states she is relieved from he abdominal discomfort after vomiting
--- NOTE | 2019-04-23 06:31 | NUR ---
Problems reprioritized. Patient report given, questions answered & plan of care reviewed with SANDY Marin.
--- NOTE | 2019-04-23 06:31 | NUR ---
Patient in room CICU 2009. I have received report from Kiki DELGADO and had the opportunity to ask questions and assume patient care.
[2019-04-23] MEDS: K, MAG and/or Phos replacement - Verify level? MC SCH (08:00)
[2019-04-23] MEDS: oxybutynin 5mg tablet PO SCH ×2 (08:01→20:34)
[2019-04-23] MEDS: sertraline 25mg tablet PO SCH (08:01)
[2019-04-23] MEDS: pantoprazole 40 MG vial IV SCH (08:01)
[2019-04-23] MEDS: levoTHYROXINE 100mcg tablet PO SCH (08:01)
[2019-04-23] MEDS: atorvastatin 10mg tablet PO SCH (08:02)
[2019-04-23] MEDS: lactobacillus rhamnosus 10,000 MMU CELLS/CAPSULE PO SCH ×2 (08:02→20:34)
[2019-04-23] MEDS: metoprolol tartrate 50mg tablet PO SCH ×2 (08:02→20:34)
[2019-04-23] MEDS: CefTRIAXone 2gm/D5W 50ml 50 ML IV SCH (08:02)
[2019-04-23] MEDS: azithromycin/NS 500mg/250ml 250 ML IV SCH (08:04)
[2019-04-23] MEDS: potassium Cl 20 mEq SR tablet PO PRN ×3 (08:09→18:25)
[2019-04-23] MEDS: normal saline 1000ml 1,000 ML IV SCH (08:12)
[2019-04-23] MEDS: enoxaparin 40mg/0.4ml syringe SUBCUT SCH (08:21)
[2019-04-23] MEDS: insulin Lispro (HumaLOG) vial - multi-dose SQ SCH ×2 (09:10→13:48)
--- NOTE | 2019-04-23 10:38 | NUR ---
called pharmacy about patient specific medication anoro ellipta; per pharmacy, medication not available.
--- NOTE | 2019-04-23 13:51 | NUR ---
Follow up: patient extubated today. Diet is carb controlled, 0-25% PO of two meals, may benefit from oral supplement in view of suboptimal PO intake and recent intubation with no nutrition at least 4 days, recommend glucerna with meals, notified MD. Will follow. Rec: 1. Continue carb controlled diet 2. send glucerna with all meals in view of suboptimal PO intake 3. routine bowel care 4. wt per rx Addendum: 04/23/19 at [address] Amended: Links added.
--- NOTE | 2019-04-23 14:00 | NUR ---
report called to Kristin DELGADO; all questions answered
--- NOTE | 2019-04-23 15:45 | NUR ---
pt wheeled to room 3026A with all belongings; VSS.
--- NOTE | 2019-04-23 17:57 | NUR ---
Asymptomatic blood glucose 66 eating dinner.
[2019-04-23] MEDS: dextrose ORAL solution 15 GM/59 ML bottle PO PRN (18:10)
--- NOTE | 2019-04-23 18:30 | NUR ---
Patient in room PCU 3027. I have received report from Kristin DELGADO and had the opportunity to ask questions and assume patient care.
--- NOTE | 2019-04-23 19:20 | NUR ---
PT was hypoglycemic with a BG of 66 and then came up to 90 after dextrose, will not administer humalog as pt barely ate their dinner, 10 carbs, will continue to monitor pt diabetes
[2019-04-23] MEDS: budesonide 0.5mg/2ml UD nebule IH SCH (20:12)
[2019-04-23] MEDS: docusate sod 100mg capsule PO SCH (20:34)
[2019-04-23] MEDS: insulin glargine (Lantus) pen - multi-dose SQ SCH (21:56)
[2019-04-23] MEDS: temazepam 15mg capsule PO PRN (23:46)
[2019-04-24 02:00] VITALS: BP 146/75
[2019-04-24] MEDS: ipratropium/albuterol 3ml nebule NEB SCH ×4 (02:07→21:26)
[2019-04-24] MEDS: methylPREDNISolone sod succ/PF 40mg inj. IV SCH (04:49)
[2019-04-24 05:24] LABS: BASOPHILS % (AUTO) 0.2 % (0-1); EOSINOPHILS % (AUTO) 0 % (0-6); HEMATOCRIT 35.1 % (35.0-45.0); HEMOGLOBIN 11.5 g/dl (12.0-16.0); LYMPHOCYTES # (AUTO) 0.6 X10'3 (1.1-4.8); LYMPHOCYTES % (AUTO) 5.5 % (21-51); MEAN CORPUSCULAR HEMOGLOBIN 27.7 PG (27.0-31.0); MEAN CORPUSCULAR HGB CONC 32.8 g/dL (33.0-36.5); MEAN CORPUSCULAR VOLUME 84.6 FL (78-98); MEAN PLATELET VOLUME 8.4 FL (7.4-10.4); MONOCYTES # (AUTO) 0.8 X10'3 (0-0.9); MONOCYTES % (AUTO) 6.7 % (2-12); NEUTROPHILS # (AUTO) 10.1 X10'3 (1.8-7.7); NEUTROPHILS % (AUTO) 87.6 % (42-75); PLATELET COUNT 212 X10'3 (140-440); RED BLOOD COUNT 4.15 X10'6 (4.20-5.60); RED CELL DISTRIBUTION WIDTH 17.5 % (11.5-14.5); WHITE BLOOD COUNT 11.5 X10'3 (4.5-11.0)
[2019-04-24 05:37] LABS: ALANINE AMINOTRANSFERASE 30 U/L (12-78); ALBUMIN 2.3 G/DL (3.4-5.0); ALBUMIN/GLOBULIN RATIO 0.9 (1.1-1.5); ALKALINE PHOSPHATASE 88 IU/L (46-116); ANION GAP 3 (8-16); ASPARTATE AMINO TRANSFERASE 15 U/L (10-37); BILIRUBIN,TOTAL 0.2 MG/DL (0.1-1.0); BLOOD UREA NITROGEN 20 MG/DL (7-18); CALCIUM 8.1 MG/DL (8.5-10.1); CHLORIDE 109 MMOL/L (99-107); CREATININE 0.77 MG/DL (0.40-0.90); GLUCOSE 182 MG/DL (70-104); PHOSPHORUS 2.5 MG/DL (2.3-4.5); SODIUM 142 MMOL/L (135-145); TOTAL CARBON DIOXIDE 29.7 MMOL/L (24-32); eGFR 75 ML/MIN
--- NOTE | 2019-04-24 06:34 | NUR ---
Problems reprioritized. Patient report given, questions answered & plan of care reviewed with Berenice DELGADO.
[2019-04-24 07:00] VITALS: BP 140/76
[2019-04-24] MEDS ORDERED: budesonide 0.5mg/2ml UD nebule IH SCH (08:00)
[2019-04-24] MEDS: K, MAG and/or Phos replacement - Verify level? MC SCH (08:00)
[2019-04-24] MEDS: enoxaparin 40mg/0.4ml syringe SUBCUT SCH (08:14)
[2019-04-24] MEDS: metoprolol tartrate 50mg tablet PO SCH ×2 (08:16→19:18)
[2019-04-24] MEDS: oxybutynin 5mg tablet PO SCH ×2 (08:16→19:18)
[2019-04-24] MEDS: docusate sod 100mg capsule PO SCH ×2 (08:16→19:18)
[2019-04-24] MEDS: aspirin 81mg tablet.DR PO SCH (08:16)
[2019-04-24] MEDS: levoTHYROXINE 100mcg tablet PO SCH (08:17)
[2019-04-24] MEDS: sertraline 25mg tablet PO SCH (08:17)
[2019-04-24] MEDS: lactobacillus rhamnosus 10,000 MMU CELLS/CAPSULE PO SCH ×2 (08:17→19:17)
[2019-04-24] MEDS: atorvastatin 10mg tablet PO SCH (08:17)
[2019-04-24] MEDS: insulin Lispro (HumaLOG) vial - multi-dose SQ SCH ×3 (08:21→19:21)
[2019-04-24] MEDS: HYDROcodone/acetaminophen 5mg/325mg tablet PO PRN ×2 (08:32→19:19)
[2019-04-24] MEDS: predniSONE 20 mg tablet PO SCH (08:33)
[2019-04-24] MEDS: budesonide 0.5mg/2ml UD nebule IH SCH ×2 (09:04→21:26)
[2019-04-24 11:00] VITALS: BP 162/83
--- NOTE | 2019-04-24 13:55 | NUR ---
Answered call light and noted sheared area to ANNA. Pt. c/o burning pain. Pt. stated it's been there since being in ICU. New orders for wound care consult, area cleaned and dressing applied, pictures taken and placed in chart. Primary RN in aware and agreement.
--- NOTE | 2019-04-24 14:52 | NUR ---
Reassessment: Pt PO 0-25% avg meals s/p extubation. Pt seen by RD and reports nausea/vomiting following meds yesterday w/ decreased appetite since extubation. RD provided verbal high protein ed and pt is agreeable to Glucerna TIDWM as well as palauan yogurt w/ granola at lunches. Dietary notified. RN ordered Glucerna TID today. LBM 04/21. Will monitor for ONS acceptance and additional protein needs. Rec: 1. Continue carb controlled diet; encourage PO 2. Glucerna TIDWM; palauan yogurt w/ granola at lunches 3. routine bowel care 4. wt per rx Addendum: 04/24/19 at [address] Amended: Links added.
[2019-04-24 15:00] VITALS: BP 167/86
[2019-04-24] MEDS: LORazepam 1 MG tablet PO PRN ×2 (16:09→22:04)
[2019-04-24 18:00] VITALS: BP 156/85
[2019-04-24] MEDS ORDERED: NUT.TX.GLUC.INTOLER,LAC-FR,SOY (GLUCERNA) 237 ML PO SCH (18:00)
--- NOTE | 2019-04-24 18:00 | NUR ---
Problems reprioritized. Patient report given, questions answered & plan of care reviewed with Melany. DELGADO.
--- NOTE | 2019-04-24 18:35 | NUR ---
Patient in room PCU 3027. I have received report from SANDY Ng and had the opportunity to ask questions and assume patient care.
[2019-04-24 22:00] VITALS: BP 145/84
[2019-04-24] MEDS: insulin glargine (Lantus) pen - multi-dose SQ SCH (22:00)
[2019-04-25] MEDS: temazepam 15mg capsule PO PRN ×2 (01:51→20:31)
[2019-04-25] MEDS: HYDROcodone/acetaminophen 5mg/325mg tablet PO PRN ×3 (01:51→20:32)
[2019-04-25 02:00] VITALS: BP 151/80
[2019-04-25] MEDS: ipratropium/albuterol 3ml nebule NEB SCH ×4 (03:24→21:38)
[2019-04-25 04:59] LABS: BASOPHILS % (AUTO) 0.2 % (0-1); EOSINOPHILS % (AUTO) 0 % (0-6); HEMATOCRIT 35.9 % (35.0-45.0); HEMOGLOBIN 11.7 g/dl (12.0-16.0); LYMPHOCYTES # (AUTO) 1.6 X10'3 (1.1-4.8); LYMPHOCYTES % (AUTO) 11.9 % (21-51); MEAN CORPUSCULAR HEMOGLOBIN 27.7 PG (27.0-31.0); MEAN CORPUSCULAR HGB CONC 32.6 g/dL (33.0-36.5); MEAN PLATELET VOLUME 8.5 FL (7.4-10.4); MONOCYTES # (AUTO) 1.3 X10'3 (0-0.9); MONOCYTES % (AUTO) 9.7 % (2-12); NEUTROPHILS # (AUTO) 10.6 X10'3 (1.8-7.7); NEUTROPHILS % (AUTO) 78.2 % (42-75); PLATELET COUNT 203 X10'3 (140-440); RED BLOOD COUNT 4.22 X10'6 (4.20-5.60); RED CELL DISTRIBUTION WIDTH 17.5 % (11.5-14.5); WHITE BLOOD COUNT 13.6 X10'3 (4.5-11.0)
[2019-04-25 05:21] LABS: ALANINE AMINOTRANSFERASE 39 U/L (12-78); ALBUMIN 2.4 G/DL (3.4-5.0); ALKALINE PHOSPHATASE 94 IU/L (46-116); ANION GAP 1 (8-16); ASPARTATE AMINO TRANSFERASE 33 U/L (10-37); BILIRUBIN,TOTAL 0.3 MG/DL (0.1-1.0); BLOOD UREA NITROGEN 17 MG/DL (7-18); BUN/CREATININE RATIO 23.9 (6.6-38.0); CALCIUM 8.2 MG/DL (8.5-10.1); CHLORIDE 108 MMOL/L (99-107); CREATININE 0.71 MG/DL (0.40-0.90); GLUCOSE 99 MG/DL (70-104); MAGNESIUM 1.8 MG/DL (1.5-2.4); PHOSPHORUS 2.2 MG/DL (2.3-4.5); POTASSIUM 3.8 MMOL/L (3.5-5.1); SODIUM 145 MMOL/L (135-145); TOTAL CARBON DIOXIDE 35.6 MMOL/L (24-32); TOTAL PROTEIN 4.9 G/DL (6.4-8.2); eGFR 82 ML/MIN
[2019-04-25 06:00] VITALS: BP 131/78
--- NOTE | 2019-04-25 06:15 | NUR ---
Patient in room PCU 3027. I have received report from Santa DELGADO and had the opportunity to ask questions and assume patient care.
--- NOTE | 2019-04-25 06:26 | NUR ---
Problems reprioritized. Patient report given, questions answered & plan of care reviewed with SANDY Moser.
[2019-04-25] MEDS: sertraline 25mg tablet PO SCH (07:34)
[2019-04-25] MEDS: oxybutynin 5mg tablet PO SCH ×2 (07:34→20:12)
[2019-04-25] MEDS: predniSONE 20 mg tablet PO SCH (07:34)
[2019-04-25] MEDS: metoprolol tartrate 50mg tablet PO SCH ×2 (07:34→20:12)
[2019-04-25] MEDS: levoTHYROXINE 100mcg tablet PO SCH (07:34)
[2019-04-25] MEDS: enoxaparin 40mg/0.4ml syringe SUBCUT SCH (07:34)
[2019-04-25] MEDS: aspirin 81mg tablet.DR PO SCH (07:35)
[2019-04-25] MEDS: docusate sod 100mg capsule PO SCH ×2 (07:35→20:12)
[2019-04-25] MEDS: lactobacillus rhamnosus 10,000 MMU CELLS/CAPSULE PO SCH ×2 (07:35→20:12)
[2019-04-25] MEDS: atorvastatin 10mg tablet PO SCH (07:35)
[2019-04-25] MEDS: K, MAG and/or Phos replacement - Verify level? MC SCH (08:00)
[2019-04-25] MEDS: budesonide 0.5mg/2ml UD nebule IH SCH ×2 (08:27→21:38)
--- NOTE | 2019-04-25 09:16 | NUR ---
Morning insulin not given due to blood sugar of 88 and pt not eating much for breakfast. Will continue to monitor closely.
[2019-04-25 11:00] VITALS: BP 163/87
[2019-04-25] MEDS: cyclobenzaprine 10mg tablet PO PRN (12:19)
[2019-04-25] MEDS: insulin Lispro (HumaLOG) vial - multi-dose SQ SCH ×2 (12:46→20:11)
[2019-04-25 15:00] VITALS: BP 153/84
[2019-04-25] MEDS: LORazepam 1 MG tablet PO PRN (17:06)
--- NOTE | 2019-04-25 18:29 | NUR ---
Problems reprioritized. Patient report given, questions answered & plan of care reviewed with Klarissa DELGADO.
[2019-04-25 19:00] VITALS: BP 149/85
[2019-04-25] MEDS: insulin glargine (Lantus) pen - multi-dose SQ SCH (22:11)
[2019-04-25 23:00] VITALS: BP 158/87
[2019-04-26] MEDS: LORazepam 1 MG tablet PO PRN ×2 (00:39→07:44)
[2019-04-26] MEDS: HYDROcodone/acetaminophen 5mg/325mg tablet PO PRN ×2 (00:39→07:43)
[2019-04-26 03:00] VITALS: BP 150/82
[2019-04-26] MEDS: ipratropium/albuterol 3ml nebule NEB SCH ×3 (03:45→13:57)
[2019-04-26 06:00] VITALS: BP 136/88
--- NOTE | 2019-04-26 06:01 | NUR ---
Problems reprioritized. Patient report given, questions answered & plan of care reviewed with SANDY Panchal.
--- NOTE | 2019-04-26 06:13 | NUR ---
Patient in room PCU 3023. I have received report from KAYLA DELGADO and had the opportunity to ask questions and assume patient care.
[2019-04-26 06:33] LABS: BASOPHILS % (AUTO) 0.2 % (0-1); EOSINOPHILS % (AUTO) 0.2 % (0-6); HEMOGLOBIN 12.4 g/dl (12.0-16.0); LYMPHOCYTES # (AUTO) 2.8 X10'3 (1.1-4.8); LYMPHOCYTES % (AUTO) 19.4 % (21-51); MEAN CORPUSCULAR HEMOGLOBIN 28.3 PG (27.0-31.0); MEAN CORPUSCULAR HGB CONC 33.6 g/dL (33.0-36.5); MEAN CORPUSCULAR VOLUME 84.3 FL (78-98); MEAN PLATELET VOLUME 8.6 FL (7.4-10.4); MONOCYTES # (AUTO) 1.3 X10'3 (0-0.9); MONOCYTES % (AUTO) 8.9 % (2-12); NEUTROPHILS # (AUTO) 10.1 X10'3 (1.8-7.7); NEUTROPHILS % (AUTO) 71.3 % (42-75); PLATELET COUNT 213 X10'3 (140-440); RED BLOOD COUNT 4.39 X10'6 (4.20-5.60); RED CELL DISTRIBUTION WIDTH 17.4 % (11.5-14.5); WHITE BLOOD COUNT 14.2 X10'3 (4.5-11.0)
[2019-04-26 06:51] LABS: ALANINE AMINOTRANSFERASE 49 U/L (12-78); ALBUMIN 2.5 G/DL (3.4-5.0); ALBUMIN/GLOBULIN RATIO 0.9 (1.1-1.5); ALKALINE PHOSPHATASE 98 IU/L (46-116); ANION GAP 2 (8-16); ASPARTATE AMINO TRANSFERASE 35 U/L (10-37); BILIRUBIN,TOTAL 0.4 MG/DL (0.1-1.0); BLOOD UREA NITROGEN 10 MG/DL (7-18); BUN/CREATININE RATIO 12.7 (6.6-38.0); CALCIUM 8.1 MG/DL (8.5-10.1); CHLORIDE 105 MMOL/L (99-107); CREATININE 0.79 MG/DL (0.40-0.90); GLUCOSE 57 MG/DL (70-104); MAGNESIUM 1.7 MG/DL (1.5-2.4); PHOSPHORUS 2.1 MG/DL (2.3-4.5); POTASSIUM 3.9 MMOL/L (3.5-5.1); SODIUM 146 MMOL/L (135-145); TOTAL CARBON DIOXIDE 38.6 MMOL/L (24-32); TOTAL PROTEIN 5.2 G/DL (6.4-8.2); eGFR 73 ML/MIN
[2019-04-26] MEDS: dextrose ORAL solution 15 GM/59 ML bottle PO PRN (07:08)
--- NOTE | 2019-04-26 07:10 | NUR ---
Pt's blood sugar 66. Pt not symptomatic. Glucose shot administered. Will re-check in 15 minutes
--- NOTE | 2019-04-26 07:35 | NUR ---
Re-checked Pt's blood sugar: 165
[2019-04-26] MEDS: enoxaparin 40mg/0.4ml syringe SUBCUT SCH (07:43)
[2019-04-26] MEDS: metoprolol tartrate 50mg tablet PO SCH (07:43)
[2019-04-26] MEDS: lactobacillus rhamnosus 10,000 MMU CELLS/CAPSULE PO SCH (07:44)
[2019-04-26] MEDS: predniSONE 20 mg tablet PO SCH (07:44)
[2019-04-26] MEDS: aspirin 81mg tablet.DR PO SCH (07:44)
[2019-04-26] MEDS: docusate sod 100mg capsule PO SCH (07:44)
[2019-04-26] MEDS: oxybutynin 5mg tablet PO SCH (07:44)
[2019-04-26] MEDS: levoTHYROXINE 100mcg tablet PO SCH (07:44)
[2019-04-26] MEDS: atorvastatin 10mg tablet PO SCH (07:44)
[2019-04-26] MEDS: sertraline 25mg tablet PO SCH (07:44)
[2019-04-26] MEDS: K, MAG and/or Phos replacement - Verify level? MC SCH (07:52)
--- NOTE | 2019-04-26 07:55 | NUR ---
Morning insulin not given due to AM blood glucose of 66. Oral glucose solution given which brought blood glucose up to 165. Will continue to closely monitor.
[2019-04-26] MEDS: budesonide 0.5mg/2ml UD nebule IH SCH (08:19)
[2019-04-26 09:08] LABS: ANISOCYTOSIS 1+; MICROCYTOSIS 1+; PLATELET ESTIMATE NORMAL; STOMATOCYTES 1+; TOTAL CELLS COUNTED 100
[2019-04-26] MEDS: cyclobenzaprine 10mg tablet PO PRN (10:29)
[2019-04-26 11:00] VITALS: BP 130/76
--- NOTE | 2019-04-26 13:16 | NUR ---
Afternoon insulin not given. Pts adternoob blood sugar is 164 after this mornings hypoglycemic event and she is not eating lunch. Will continue to monitor closely
[2019-04-26] MEDS ORDERED: PRED10TA23 PO (13:23)
[2019-04-26] MEDS ORDERED: ENOX40DI11 SUBCUT (13:23)
--- NOTE | 2019-04-26 16:00 | NUR ---
stable for transfer per MD, report called to Maribell and problems re-prioritized with Lillie DELGADO, all belongings collected and sent with the pt, PIV and tele monitor discontinued, left the unit at 1600 with [facility] personnel.
== END 2019-04-26 16:00 | DRG 208 ==
LOC: ER 23:39 → ED HOLD 04-19 01:25 → CICU 2S 04-19 01:56 → PCU 3S 04-23 15:45
PROVIDERS: ADMIT Internal Medicine Critical Care Medicine; ATTEND Internal Medicine Critical Care Medicine
PROC: 5A1945Z Respiratory Ventilation, 24-96 Consecutive Hours (ICD-10-PCS; principal; 2019-04-18)
PROC: 0BH17EZ Insertion of Endotracheal Airway into Trachea, Via Natural or Artificial Opening (ICD-10-PCS; 2019-04-18)
PROC: 0D9670Z Drainage of Stomach with Drainage Device, Via Natural or Artificial Opening (ICD-10-PCS; 2019-04-19)
DX: J96.21 Acute and chronic respiratory failure with hypoxia (principal); E87.2 Acidosis; J44.1 Chronic obstructive pulmonary disease with (acute) exacerbation; F32.9 Major depressive disorder, single episode, unspecified; G62.9 Polyneuropathy, unspecified; G89.29 Other chronic pain; E78.00 Pure hypercholesterolemia, unspecified; Z79.890 Hormone replacement therapy; Z79.899 Other long term (current) drug therapy; Z88.5 Allergy status to narcotic agent; Z88.8 Allergy status to other drugs, medicaments and biological substances
CPT/HCPCS: 31500; 36415; 36600; 71045; 76937; 80053; 81001; 82803; 82948; 83605; 83735; 83880; 84100; 84145; 84443; 84484; 85018; 85025; 85610; 85730; 87040; 87070; 87081; 87502; 87503; 92508; 92616; 93005; 93971; 94002; 94003; 94640; 94667; 94668; 94760; 96365; 96375; 97110; 97116; 97162; 97530; 99285; C9113; G0378; J0360; J0456; J0696; J1650; J1815; J2250; J2405; J2920; J2930; J3010; J3490; J7512; J7626

== ENCOUNTER 2019-05-30 21:20 | Inpatient (IN) | payer MEDICARE, OTHER ==
[~2019-05-30] VITALS: Ht 165.1 cm; Wt 80.0 kg
[~2019-05-30 21:20] MED LIST changes: +ASPI-611 PO; -CLON0.1T2 PO; +CYCL-1 PO; +ENOX40DI11 SUBCUT; -ESCI10TA PO; -IPRA3AMP9 IH; -LYR75C PO; -METO-539 PO; +METO50TA16 PO; -NICO-630 TD; -OMEP40CA13 PO; +OXYB-58 PO; -PRED10TA PO; +SERT25TA5 PO
--- NOTE | 2019-05-30 21:33 | NUR ---
PAIN PUMP WAS LOCATED ON RIGHT ABDOMEN. PATIENT WAS UNABLE TO IDENTIFY WHICH DRUG GOES INTO HER PUMP. SHE DENIED BACLOPHEN AND CONFIRMED THAT MORPHINE IS INFUSED IN HER PAIN PUMP. SHE SAID IT WAS FILLED TWO DAYS AGO. HER PAIN STARED TODAY.
[2019-05-30 22:03] LABS: BASOPHILS # (AUTO) 0.1 X10'3 (0-0.2); EOSINOPHILS # (AUTO) 0.1 X10'3 (0-0.9); HEMOGLOBIN 10.5 g/dl (12.0-16.0); NEUTROPHILS # (AUTO) 10.2 X10'3 (1.8-7.7)
[2019-05-30 22:05] LABS: BASOPHILS % (AUTO) 0.7 % (0-1); EOSINOPHILS % (AUTO) 0.6 % (0-6); HEMATOCRIT 32.5 % (35.0-45.0); MEAN CORPUSCULAR HEMOGLOBIN 26.6 PG (27.0-31.0); MEAN CORPUSCULAR HGB CONC 32.3 g/dL (33.0-36.5); MEAN CORPUSCULAR VOLUME 82.4 FL (78-98); MONOCYTES # (AUTO) 1.8 X10'3 (0-0.9); MONOCYTES % (AUTO) 10.6 % (2-12); NEUTROPHILS % (AUTO) 59.1 % (42-75); PLATELET COUNT 454 X10'3 (140-440); RED BLOOD COUNT 3.95 X10'6 (4.20-5.60); RED CELL DISTRIBUTION WIDTH 17.2 % (11.5-14.5); WHITE BLOOD COUNT 17.2 X10'3 (4.5-11.0)
[2019-05-30 22:15] LABS: ALANINE AMINOTRANSFERASE 11 U/L (12-78); ALBUMIN 2.5 G/DL (3.4-5.0); ALBUMIN/GLOBULIN RATIO 0.5 (1.1-1.5); ALKALINE PHOSPHATASE 116 IU/L (46-116); ANION GAP 1 (8-16); ASPARTATE AMINO TRANSFERASE 13 U/L (10-37); BILIRUBIN,TOTAL 0.3 MG/DL (0.1-1.0); BLOOD UREA NITROGEN 11 MG/DL (7-18); BUN/CREATININE RATIO 15.9 (6.6-38.0); CALCIUM 9.3 MG/DL (8.5-10.1); CHLORIDE 103 MMOL/L (99-107); CREATININE 0.69 MG/DL (0.40-0.90); GLUCOSE 122 MG/DL (70-104); SODIUM 143 MMOL/L (135-145); TOTAL CARBON DIOXIDE 38.9 MMOL/L (24-32); TOTAL PROTEIN 7.1 G/DL (6.4-8.2); eGFR 85 ML/MIN
[2019-05-30] MEDS ORDERED: morphine 4 MG/ML inj SYRINge IV ONE (22:50)
[2019-05-30] MEDS ORDERED: methylPREDNISolone sod succ 125mg/2ml vial IV ONE (22:50)
[2019-05-30] MEDS ORDERED: albuterol 2.5 MG/3 ML nebule NEB ONE (23:05)
[2019-05-30] MEDS ORDERED: normal saline 1000ML IV soln IVB ONE (23:05)
[2019-05-30] MEDS ORDERED: PRED10TA (23:07)
[2019-05-30] MEDS ORDERED: BUSP5TAB3 PO (23:07)
[2019-05-30] MEDS ORDERED: ALBU0.63 INH (23:07)
[2019-05-30] MEDS ORDERED: iohexol 350MG/ML 100ml bottle IV ONE (23:10)
[2019-05-31] MEDS ORDERED: CefTRIAXone/D5W-Rocephin 1gm 50 ML IV ONE (00:25)
[2019-05-31] MEDS ORDERED: azithromycin/NS 500mg/250ml 250 ML IV ONE (00:25)
[2019-05-31] MEDS ORDERED: potassium CL 10mEq/100ml bag 100 ML IV PRN ×2 (01:00)
[2019-05-31] MEDS ORDERED: potassium Cl 20 mEq SR tablet PO PRN ×2 (01:00)
[2019-05-31] MEDS ORDERED: ipratropium/albuterol 3ml nebule NEB PRN (01:00)
[2019-05-31] MEDS ORDERED: mag hydrox/Alum hydrox/simeth 30ml oral suspension PO PRN (01:00)
[2019-05-31] MEDS ORDERED: magnesium 2GM in 50ml NS 50 ML IV PRN (01:00)
[2019-05-31] MEDS ORDERED: magnesium 4gm in 100ml NS 100 ML IV PRN (01:00)
[2019-05-31] MEDS ORDERED: acetaminophen 325mg tablet PO PRN ×2 (01:00)
[2019-05-31] MEDS ORDERED: magnesium hydroxide 30ml (MOM) UD suspension PO PRN (01:00)
[2019-05-31] MEDS ORDERED: magnesium Cl slow-release 64mg tablet PO PRN (01:00)
[2019-05-31] MEDS ORDERED: cyclobenzaprine 10mg tablet PO PRN (02:45)
[2019-05-31] MEDS ORDERED: morphine 4 MG/ML inj SYRINge IM PRN (02:45)
[2019-05-31] MEDS ORDERED: naloxone 0.4 mg/ml inj IV ONE (03:50)
--- NOTE | 2019-05-31 07:09 | NUR ---
GOT REPORT FROM RODNEY IN ER
[2019-05-31] MEDS: ipratropium/albuterol 3ml nebule NEB SCH ×4 (07:10→19:39)
[2019-05-31 07:45] VITALS: BP 156/88
[2019-05-31] MEDS: K and/or MAG REPLACEMENT MC SCH ×2 (08:00→20:00)
[2019-05-31] MEDS: busPIRone 5mg tablet PO SCH (09:28)
[2019-05-31] MEDS: atorvastatin 10mg tablet PO SCH (09:28)
[2019-05-31] MEDS: sertraline 50mg tablet PO SCH (09:29)
[2019-05-31] MEDS: azithromycin 250mg tablet PO SCH (09:29)
[2019-05-31] MEDS: levoTHYROXINE 100mcg tablet PO SCH (09:29)
[2019-05-31] MEDS: predniSONE 20 mg tablet PO SCH (09:29)
[2019-05-31] MEDS: metoprolol tartrate 50mg tablet PO SCH ×2 (09:29→20:17)
[2019-05-31] MEDS: enoxaparin 40mg/0.4ml syringe SQ SCH (09:31)
[2019-05-31 11:00] VITALS: BP 157/94
[2019-05-31] MEDS: oxyCODONE/APAP 5-325mg tablet PO PRN (17:29)
[2019-05-31 18:00] VITALS: BP 151/92
--- NOTE | 2019-05-31 18:20 | NUR ---
Problems reprioritized. Patient report given, questions answered & plan of care reviewed with SANDY GARZA.
[2019-05-31] MEDS: lactobacillus rhamnosus 10,000 MMU CELLS/CAPSULE PO SCH (20:15)
[2019-06-01] VITALS: BP 147/90
[2019-06-01] MEDS: oxyCODONE/APAP 5-325mg tablet PO PRN ×3 (03:12→22:16)
[2019-06-01 05:23] LABS: BASOPHILS # (AUTO) 0.1 X10'3 (0-0.2); BASOPHILS % (AUTO) 0.5 % (0-1); EOSINOPHILS % (AUTO) 0 % (0-6); HEMATOCRIT 33.2 % (35.0-45.0); LYMPHOCYTES # (AUTO) 2.1 X10'3 (1.1-4.8); LYMPHOCYTES % (AUTO) 14.4 % (21-51); MEAN CORPUSCULAR HEMOGLOBIN 27.1 PG (27.0-31.0); MEAN CORPUSCULAR HGB CONC 33.2 g/dL (33.0-36.5); MEAN CORPUSCULAR VOLUME 81.4 FL (78-98); MEAN PLATELET VOLUME 8.6 FL (7.4-10.4); MONOCYTES # (AUTO) 1.6 X10'3 (0-0.9); NEUTROPHILS # (AUTO) 11.1 X10'3 (1.8-7.7); NEUTROPHILS % (AUTO) 74.1 % (42-75); PLATELET COUNT 465 X10'3 (140-440); RED BLOOD COUNT 4.08 X10'6 (4.20-5.60); RED CELL DISTRIBUTION WIDTH 17.4 % (11.5-14.5)
[2019-06-01 05:31] LABS: ALBUMIN 2.5 G/DL (3.4-5.0); ANION GAP 3 (8-16); BLOOD UREA NITROGEN 15 MG/DL (7-18); BUN/CREATININE RATIO 20.5 (6.6-38.0); CALCIUM 9.1 MG/DL (8.5-10.1); CHLORIDE 104 MMOL/L (99-107); CREATININE 0.73 MG/DL (0.40-0.90); GLUCOSE 118 MG/DL (70-104); MAGNESIUM 1.9 MG/DL (1.5-2.4); SODIUM 144 MMOL/L (135-145); TOTAL CARBON DIOXIDE 37.2 MMOL/L (24-32); eGFR 80 ML/MIN
[2019-06-01 05:35] LABS: POTASSIUM 3.9 MMOL/L (3.5-5.1)
--- NOTE | 2019-06-01 06:35 | NUR ---
Problems reprioritized. Patient report given, questions answered & plan of care reviewed with SANDY Connell.
--- NOTE | 2019-06-01 06:39 | NUR ---
Patient in room MILAN 345. I have received report from Klarissa DELGADO and had the opportunity to ask questions and assume patient care.
[2019-06-01 07:00] VITALS: BP 178/99
[2019-06-01] MEDS: ipratropium/albuterol 3ml nebule NEB SCH ×4 (07:06→20:25)
[2019-06-01] MEDS: levoTHYROXINE 100mcg tablet PO SCH (07:51)
[2019-06-01] MEDS: azithromycin 250mg tablet PO SCH (07:51)
[2019-06-01] MEDS: lactobacillus rhamnosus 10,000 MMU CELLS/CAPSULE PO SCH ×2 (07:51→19:19)
[2019-06-01] MEDS: sertraline 50mg tablet PO SCH (07:51)
[2019-06-01] MEDS: atorvastatin 10mg tablet PO SCH (07:51)
[2019-06-01] MEDS: predniSONE 20 mg tablet PO SCH (07:52)
[2019-06-01] MEDS: metoprolol tartrate 50mg tablet PO SCH ×2 (07:52→19:18)
[2019-06-01] MEDS: busPIRone 5mg tablet PO SCH (07:52)
[2019-06-01] MEDS: enoxaparin 40mg/0.4ml syringe SQ SCH (07:53)
[2019-06-01] MEDS: CefTRIAXone/D5W-Rocephin 1gm 50 ML IV SCH (07:53)
[2019-06-01] MEDS: K and/or MAG REPLACEMENT MC SCH ×2 (08:00→20:00)
[2019-06-01] MEDS: cyclobenzaprine 10mg tablet PO PRN ×2 (09:39→19:19)
[2019-06-01] MEDS ORDERED: methylPREDNISolone sod succ 125mg/2ml vial IV ONE (10:55)
[2019-06-01 12:00] VITALS: BP_SYST 136; BP_SYST 167; BP_DIAS 53; BP_DIAS 94
[2019-06-01] MEDS: methylPREDNISolone sod succ 125mg/2ml vial IV SCH (16:39)
[2019-06-01 18:00] VITALS: BP 113/72
--- NOTE | 2019-06-01 18:48 | NUR ---
Problems reprioritized. Patient report given, questions answered & plan of care reviewed with Ashlyn DELGADO.
[2019-06-01] MEDS: ondansetron/PF 4mg/2ml inj IV PRN (20:44)
[2019-06-02] VITALS: BP 118/68
[2019-06-02] MEDS: methylPREDNISolone sod succ 125mg/2ml vial IV SCH ×4 (00:17→23:30)
[2019-06-02] MEDS: cyclobenzaprine 10mg tablet PO PRN ×3 (05:21→21:54)
--- NOTE | 2019-06-02 06:15 | NUR ---
Problems reprioritized. Patient report given, questions answered & plan of care reviewed with Jameson DELGADO.
[2019-06-02 06:21] LABS: BASOPHILS % (AUTO) 0.2 % (0-1); EOSINOPHILS % (AUTO) 0 % (0-6); HEMATOCRIT 31.7 % (35.0-45.0); HEMOGLOBIN 10.3 g/dl (12.0-16.0); LYMPHOCYTES # (AUTO) 1.2 X10'3 (1.1-4.8); LYMPHOCYTES % (AUTO) 10.8 % (21-51); MEAN CORPUSCULAR HEMOGLOBIN 26.6 PG (27.0-31.0); MEAN CORPUSCULAR HGB CONC 32.5 g/dL (33.0-36.5); MEAN CORPUSCULAR VOLUME 81.9 FL (78-98); MEAN PLATELET VOLUME 8.7 FL (7.4-10.4); MONOCYTES # (AUTO) 0.3 X10'3 (0-0.9); MONOCYTES % (AUTO) 2.6 % (2-12); NEUTROPHILS # (AUTO) 9.7 X10'3 (1.8-7.7); NEUTROPHILS % (AUTO) 86.4 % (42-75); PLATELET COUNT 446 X10'3 (140-440); RED BLOOD COUNT 3.88 X10'6 (4.20-5.60); RED CELL DISTRIBUTION WIDTH 17.6 % (11.5-14.5); WHITE BLOOD COUNT 11.3 X10'3 (4.5-11.0)
[2019-06-02 06:35] LABS: ALBUMIN 2.4 G/DL (3.4-5.0); ANION GAP 5 (8-16); BLOOD UREA NITROGEN 22 MG/DL (7-18); BUN/CREATININE RATIO 23.2 (6.6-38.0); CALCIUM 8.6 MG/DL (8.5-10.1); CHLORIDE 101 MMOL/L (99-107); CREATININE 0.95 MG/DL (0.40-0.90); GLUCOSE 159 MG/DL (70-104); POTASSIUM 4.1 MMOL/L (3.5-5.1); SODIUM 140 MMOL/L (135-145); TOTAL CARBON DIOXIDE 34.5 MMOL/L (24-32); eGFR 59 ML/MIN
--- NOTE | 2019-06-02 06:38 | NUR ---
Patient in room MILAN 340. I have received report from Isabela DELGADO and had the opportunity to ask questions and assume patient care.
[2019-06-02 07:00] VITALS: BP 118/70
[2019-06-02] MEDS: ipratropium/albuterol 3ml nebule NEB SCH ×4 (07:37→19:32)
[2019-06-02 07:38] LABS: ANISOCYTOSIS 1+; PLATELET ESTIMATE INCREASED; TOTAL CELLS COUNTED 100
[2019-06-02] MEDS: K and/or MAG REPLACEMENT MC SCH ×2 (08:00→20:00)
[2019-06-02] MEDS: levoTHYROXINE 100mcg tablet PO SCH (09:30)
[2019-06-02] MEDS: lactobacillus rhamnosus 10,000 MMU CELLS/CAPSULE PO SCH ×2 (09:30→19:59)
[2019-06-02] MEDS: busPIRone 5mg tablet PO SCH (09:30)
[2019-06-02] MEDS: sertraline 50mg tablet PO SCH (09:30)
[2019-06-02] MEDS: enoxaparin 40mg/0.4ml syringe SQ SCH (09:30)
[2019-06-02] MEDS: azithromycin 250mg tablet PO SCH (09:30)
[2019-06-02] MEDS: atorvastatin 10mg tablet PO SCH (09:30)
[2019-06-02] MEDS: metoprolol tartrate 50mg tablet PO SCH ×2 (09:30→20:00)
[2019-06-02] MEDS: CefTRIAXone/D5W-Rocephin 1gm 50 ML IV SCH (09:30)
[2019-06-02 11:00] VITALS: BP 129/77
[2019-06-02] MEDS: oxyCODONE/APAP 5-325mg tablet PO PRN ×2 (12:19→20:01)
[2019-06-02 18:00] VITALS: BP 142/73
--- NOTE | 2019-06-02 18:08 | NUR ---
Problems reprioritized. Patient report given, questions answered & plan of care reviewed with Aaliyah DELGADO.
--- NOTE | 2019-06-02 18:10 | NUR ---
Patient in room MILAN 357. I have received report from SANDY Barba and had the opportunity to ask questions and assume patient care. Patient sitting up in bed with dinner tray, she is A&O x3 and BUI. She reports she is unable to eat dinner due to nausea, I will bring Dwayne and monitor.
[2019-06-02] MEDS: ondansetron/PF 4mg/2ml inj IV PRN (18:11)
--- NOTE | 2019-06-02 18:46 | NUR ---
Patient in room MILAN 340. I have received report from Nella DELGADO and had the opportunity to ask questions and assume patient care.
[2019-06-03] VITALS: BP 130/73
--- NOTE | 2019-06-03 04:47 | NUR ---
dorsalis pedis pulse checked with doppler, positive pulses found.
--- NOTE | 2019-06-03 04:52 | NUR ---
The patient has put out no urine since admit to the floor, she was wearing a depends and pads upon arrival from ER and some urine was noted. A bladder scan was just done and only 24mL noted, I will continue to monitor.
--- NOTE | 2019-06-03 06:24 | NUR ---
Problems reprioritized. Patient report given, questions answered & plan of care reviewed with SANDY Frankel.
[2019-06-03 06:34] LABS: BASOPHILS % (AUTO) 0.2 % (0-1); EOSINOPHILS % (AUTO) 0 % (0-6); HEMATOCRIT 31.5 % (35.0-45.0); HEMOGLOBIN 10.5 g/dl (12.0-16.0); LYMPHOCYTES # (AUTO) 1.1 X10'3 (1.1-4.8); LYMPHOCYTES % (AUTO) 10.3 % (21-51); MEAN CORPUSCULAR HEMOGLOBIN 27.4 PG (27.0-31.0); MEAN CORPUSCULAR HGB CONC 33.4 g/dL (33.0-36.5); MEAN CORPUSCULAR VOLUME 82.2 FL (78-98); MEAN PLATELET VOLUME 8.3 FL (7.4-10.4); MONOCYTES # (AUTO) 0.3 X10'3 (0-0.9); NEUTROPHILS # (AUTO) 9.4 X10'3 (1.8-7.7); NEUTROPHILS % (AUTO) 86.5 % (42-75); PLATELET COUNT 425 X10'3 (140-440); RED BLOOD COUNT 3.83 X10'6 (4.20-5.60); WHITE BLOOD COUNT 10.9 X10'3 (4.5-11.0)
[2019-06-03 06:41] LABS: ALBUMIN 2.6 G/DL (3.4-5.0); ANION GAP 3 (8-16); BLOOD UREA NITROGEN 28 MG/DL (7-18); BUN/CREATININE RATIO 29.8 (6.6-38.0); CALCIUM 9.1 MG/DL (8.5-10.1); CHLORIDE 102 MMOL/L (99-107); CREATININE 0.94 MG/DL (0.40-0.90); GLUCOSE 161 MG/DL (70-104); MAGNESIUM 2.2 MG/DL (1.5-2.4); POTASSIUM 4.6 MMOL/L (3.5-5.1); SODIUM 140 MMOL/L (135-145); TOTAL CARBON DIOXIDE 34.7 MMOL/L (24-32); eGFR 60 ML/MIN
--- NOTE | 2019-06-03 06:48 | NUR ---
Patient in room MILAN 357. I have received report from Aaliyah DELGADO and had the opportunity to ask questions and assume patient care.
[2019-06-03] MEDS: ipratropium/albuterol 3ml nebule NEB SCH ×2 (07:00→10:51)
[2019-06-03 07:30] VITALS: BP 125/73
[2019-06-03] MEDS: K and/or MAG REPLACEMENT MC SCH (08:00)
[2019-06-03] MEDS: metoprolol tartrate 50mg tablet PO SCH (09:08)
[2019-06-03] MEDS: atorvastatin 10mg tablet PO SCH (09:08)
[2019-06-03] MEDS: azithromycin 250mg tablet PO SCH (09:09)
[2019-06-03] MEDS: sertraline 50mg tablet PO SCH (09:09)
[2019-06-03] MEDS: levoTHYROXINE 100mcg tablet PO SCH (09:09)
[2019-06-03] MEDS: lactobacillus rhamnosus 10,000 MMU CELLS/CAPSULE PO SCH (09:10)
[2019-06-03] MEDS: methylPREDNISolone sod succ 125mg/2ml vial IV SCH (09:10)
[2019-06-03] MEDS: busPIRone 5mg tablet PO SCH (09:10)
[2019-06-03] MEDS: CefTRIAXone/D5W-Rocephin 1gm 50 ML IV SCH (09:11)
[2019-06-03] MEDS: enoxaparin 40mg/0.4ml syringe SQ SCH (09:15)
[2019-06-03] MEDS: cyclobenzaprine 10mg tablet PO PRN (09:23)
[2019-06-03] MEDS: oxyCODONE/APAP 5-325mg tablet PO PRN (10:58)
[2019-06-03 11:00] VITALS: BP 147/73
--- NOTE | 2019-06-03 16:19 | NUR ---
Patient discharged to [facility], report called to Margo.
== END 2019-06-03 13:30 | DRG 193 ==
LOC: ER 21:20 → ED HOLD 05-31 01:39 → SUR 3N 05-31 07:40
PROVIDERS: ADMIT Hospitalist; ATTEND Internal Medicine
PROC: BW211ZZ Computerized Tomography (CT Scan) of Abdomen and Pelvis using Low Osmolar Contrast (ICD-10-PCS; principal; 2019-05-30)
DX: J18.9 Pneumonia, unspecified organism (principal); G92 Toxic encephalopathy; J44.1 Chronic obstructive pulmonary disease with (acute) exacerbation; J96.11 Chronic respiratory failure with hypoxia; G89.4 Chronic pain syndrome; E03.9 Hypothyroidism, unspecified; E78.00 Pure hypercholesterolemia, unspecified; G62.9 Polyneuropathy, unspecified; F32.9 Major depressive disorder, single episode, unspecified; M54.9 Dorsalgia, unspecified; T78.8XXA Other adverse effects, not elsewhere classified, initial encounter; X58.XXXA Exposure to other specified factors, initial encounter; Z79.899 Other long term (current) drug therapy
CPT/HCPCS: 36415; 71045; 74174; 80048; 80053; 83735; 83880; 84145; 84443; 84484; 85025; 87081; 93005; 94640; 94760; 96365; 96368; 96375; 97110; 97116; 97161; 97530; 99285; G0378; J0456; J0696; J1650; J2270; J2310; J2405; J2930; J7030; J7512; Q9967

== ENCOUNTER 2021-06-11 20:24 | Inpatient (IN) | payer MEDICARE, OTHER ==
[~2021-06-11] VITALS: Ht 165.1 cm; Wt 76.4 kg
[~2021-06-11 20:24] MED LIST changes: +ALBU0.63 INH; -ASPI-611 PO; +BUSP5TAB3 PO; -ENOX40DI11 SUBCUT; +SERT-432 PO; -SERT25TA5 PO
[2021-06-11 21:08] LABS: BASOPHILS # (AUTO) 0.1 X10'3 (0-0.2); BASOPHILS % (AUTO) 0.3 % (0-1); EOSINOPHILS % (AUTO) 0.1 % (0-6); HEMATOCRIT 33.8 % (35.0-45.0); LYMPHOCYTES # (AUTO) 1.1 X10'3 (1.1-4.8); LYMPHOCYTES % (AUTO) 4.6 % (21-51); MEAN CORPUSCULAR HEMOGLOBIN 26.5 PG (27.0-31.0); MEAN CORPUSCULAR HGB CONC 32.4 g/dL (33.0-36.5); MEAN CORPUSCULAR VOLUME 81.8 FL (78-98); MEAN PLATELET VOLUME 8.3 FL (7.4-10.4); MONOCYTES # (AUTO) 1.4 X10'3 (0-0.9); NEUTROPHILS # (AUTO) 21.3 X10'3 (1.8-7.7); PLATELET COUNT 291 X10'3 (140-440); RED BLOOD COUNT 4.13 X10'6 (4.20-5.60); RED CELL DISTRIBUTION WIDTH 15.8 % (11.5-14.5); WHITE BLOOD COUNT 23.9 X10'3 (4.5-11.0)
[2021-06-11 21:26] LABS: ANION GAP 7 (8-16); BILIRUBIN,TOTAL 0.4 MG/DL (0.1-1.0); BLOOD UREA NITROGEN 14 MG/DL (7-18); BUN/CREATININE RATIO 15.6 (6.6-38.0); CALCIUM 9.2 MG/DL (8.5-10.1); CHLORIDE 100 MMOL/L (99-107); GLUCOSE 149 MG/DL (70-104); POTASSIUM 3.9 MMOL/L (3.5-5.1); SODIUM 139 MMOL/L (135-145); TOTAL CARBON DIOXIDE 32.3 MMOL/L (24-32); TOTAL PROTEIN 7.7 G/DL (6.4-8.2); eGFR 62 ML/MIN
[2021-06-11 21:27] LABS: ALANINE AMINOTRANSFERASE 8 U/L (12-78); ALBUMIN 2.7 G/DL (3.4-5.0); ALBUMIN/GLOBULIN RATIO 0.5 (1.1-1.5); ALKALINE PHOSPHATASE 162 IU/L (46-116); ASPARTATE AMINO TRANSFERASE 13 U/L (10-37)
[2021-06-11 21:42] LABS: PLATELET ESTIMATE NORMAL; TOTAL CELLS COUNTED 100
[2021-06-11 21:43] LABS: ANISOCYTOSIS 1+; STOMATOCYTES FEW
[2021-06-11 22:36] LABS: CLARITY,URINE CLEAR (Clear); COLOR,URINE YELLOW (Yellow); GLUCOSE, URINE NEGATIVE (Neg); KETONES,URINE NEGATIVE (Neg); LEUKOCYTE ESTERASE ,URINE NEGATIVE (Neg); NITRITES, URINE NEGATIVE (Neg); OCCULT BLOOD,URINE SMALL (Neg); PROTEIN,URINE TRACE mg/dl (Neg); UROBILINOGEN,URINE 0.2 E.U/dL (0.2-1.0)
[2021-06-11 22:41] LABS: UA COLLECTION TYPE VOIDED
[2021-06-11 22:42] LABS: BACTERIA,URINE NONE SEEN /HPF (Neg); SQUAMOUS EPITHELIAL CELL,UR FEW /LPF (FEW); WBC,URINE NONE SEEN /HPF (0-4)
[2021-06-11] MEDS ORDERED: methylPREDNISolone sod succ 125mg/2ml vial IV ONE (23:20)
[2021-06-11] MEDS ORDERED: albuterol 2.5 MG/3 ML nebule CONTNEB PRN (23:20)
[2021-06-11] MEDS ORDERED: CefTRIAXone 2gm/D5W 50ml BAG 50 ML IV ONE (23:35)
[2021-06-11 23:53] LABS: D-DIMER 0.96 MG/L FEU (0-0.50)
[2021-06-12] MEDS ORDERED: LORazepam 1 MG tablet PO ONE (00:25)
[2021-06-12] MEDS ORDERED: morphine 2 MG/ML inj. syringe IV PRN (00:25)
[2021-06-12 00:27] LABS: ABG BASE EXCESS 6.6 mmol/L (-2.0-2.0); ABG HCO3 32.5 mmol/L (22.0-26.0); ABG OXYGEN SATURATION 95.1 % (94-97); ABG PCO2 (T) 53.5 mmHg (32.0-45.0); ABG PO2 (T) 77.1 mmHg (75.0-100.0); ALLEN'S TEST POSITIVE; FCOHb 0.3 % (0.0-3.9); FLOW 6 L/min; FMetHb 0.2 % (0.0-1.5); FO2Hb 94.6 % (94-97); PATIENT TEMPERATURE 37.4; TOTAL HEMOGLOBIN 12.1 G/dl (12.0-16.0)
[2021-06-12] MEDS ORDERED: albuterol 2.5 MG/3 ML nebule NEB ONE (01:20)
[2021-06-12] MEDS ORDERED: BUPR1PAT23 TOP (01:27)
[2021-06-12] MEDS ORDERED: LEVO112T39 PO (01:27)
[2021-06-12] MEDS ORDERED: PARO10TA4 PO (01:27)
[2021-06-12] MEDS ORDERED: FLUT1BLS16 INH (01:27)
[2021-06-12] MEDS ORDERED: GABA-530 PO (01:27)
[2021-06-12] MEDS ORDERED: iohexol 300mg/ml 100ml inj. ONE (01:33)
[2021-06-12] MEDS ORDERED: acetaminophen 325mg tablet PO PRN (01:50)
[2021-06-12] MEDS ORDERED: potassium Cl 20 mEq SR tablet PO PRN ×2 (01:50)
[2021-06-12] MEDS ORDERED: potassium CL 10mEq/100ml bag 100 ML IV PRN (01:50)
[2021-06-12] MEDS ORDERED: ondansetron/PF 4mg/2ml inj IV PRN (01:50)
[2021-06-12] MEDS ORDERED: magnesium 2GM in 50ml NS 50 ML IV PRN (01:50)
[2021-06-12] MEDS ORDERED: mag hydrox/Alum hydrox/simeth 30ml oral suspension PO PRN (01:50)
[2021-06-12] MEDS ORDERED: magnesium hydroxide 30ml (MOM) UD suspension PO PRN (01:50)
[2021-06-12] MEDS ORDERED: magnesium 4gm in 100ml NS 100 ML IV PRN (01:50)
[2021-06-12] MEDS ORDERED: magnesium Cl slow-release 64mg tablet PO PRN (01:50)
[2021-06-12] MEDS ORDERED: cyclobenzaprine 10mg tablet PO PRN (02:05)
[2021-06-12] MEDS ORDERED: albuterol 2.5 MG/3 ML nebule NEB PRN ×2 (02:05→09:25)
--- NOTE | 2021-06-12 06:36 | NUR ---
Patient in room PCU 3013. I have received report from Robert and had the opportunity to ask questions and assume patient care.
[2021-06-12] MEDS: K and/or MAG REPLACEMENT MC SCH ×2 (08:00→20:00)
[2021-06-12] MEDS ORDERED: azithromycin/NS 500mg/250ml 250 ML IV SCH (08:00)
[2021-06-12] MEDS ORDERED: methylPREDNISolone sod succ/PF 40mg inj. IV SCH (08:00)
[2021-06-12 09:42] LABS: CHLORIDE 99 MMOL/L (99-107); POTASSIUM 3.8 MMOL/L (3.5-5.1); SODIUM 135 MMOL/L (135-145)
[2021-06-12 09:43] LABS: BASOPHILS % (AUTO) 0.1 % (0-1); EOSINOPHILS % (AUTO) 0 % (0-6); HEMATOCRIT 34.3 % (35.0-45.0); HEMOGLOBIN 10.9 g/dl (12.0-16.0); LYMPHOCYTES # (AUTO) 0.6 X10'3 (1.1-4.8); LYMPHOCYTES % (AUTO) 2.7 % (21-51); MEAN CORPUSCULAR HEMOGLOBIN 26.4 PG (27.0-31.0); MEAN CORPUSCULAR HGB CONC 31.6 g/dL (33.0-36.5); MEAN CORPUSCULAR VOLUME 83.4 FL (78-98); MONOCYTES # (AUTO) 0.4 X10'3 (0-0.9); MONOCYTES % (AUTO) 1.7 % (2-12); NEUTROPHILS # (AUTO) 21.3 X10'3 (1.8-7.7); NEUTROPHILS % (AUTO) 95.5 % (42-75); PLATELET COUNT 277 X10'3 (140-440); RED BLOOD COUNT 4.12 X10'6 (4.20-5.60); RED CELL DISTRIBUTION WIDTH 16.1 % (11.5-14.5); WHITE BLOOD COUNT 22.3 X10'3 (4.5-11.0)
[2021-06-12] MEDS: docusate sod 100mg capsule PO SCH ×2 (09:50→19:55)
[2021-06-12] MEDS: levoTHYROXINE 112mcg tablet PO SCH (09:56)
[2021-06-12] MEDS: atorvastatin 10mg tablet PO SCH (09:56)
[2021-06-12] MEDS: metoprolol tartrate 50mg tablet PO SCH ×2 (09:56→19:55)
[2021-06-12] MEDS: heparin, porcine 5000 units/ml vial SQ SCH ×2 (09:59→19:54)
[2021-06-12] MEDS: CefTRIAXone/D5W-Rocephin 1gm 50 ML IV SCH (10:05)
[2021-06-12] MEDS: PARoxetine 10mg tablet PO SCH (10:05)
[2021-06-12 10:11] LABS: ALANINE AMINOTRANSFERASE 11 U/L (12-78); ALBUMIN 2.6 G/DL (3.4-5.0); ALBUMIN/GLOBULIN RATIO 0.5 (1.1-1.5); ALKALINE PHOSPHATASE 153 IU/L (46-116); ANION GAP 8 (8-16); ASPARTATE AMINO TRANSFERASE 12 U/L (10-37); BILIRUBIN,TOTAL 0.3 MG/DL (0.1-1.0); BLOOD UREA NITROGEN 15 MG/DL (7-18); BUN/CREATININE RATIO 15.5 (6.6-38.0); CALCIUM 9.3 MG/DL (8.5-10.1); CREATININE 0.97 MG/DL (0.40-0.90); GLUCOSE 203 MG/DL (70-104); TOTAL PROTEIN 7.7 G/DL (6.4-8.2); eGFR 57 ML/MIN
[2021-06-12 10:51] LABS: TOTAL CELLS COUNTED 100
[2021-06-12 10:52] LABS: ANISOCYTOSIS 1+; PLATELET ESTIMATE NORMAL
[2021-06-12 11:00] VITALS: BP 107/73
[2021-06-12] MEDS ORDERED: iohexol 350MG/ML 100ml bottle IV ONE (11:31)
[2021-06-12] MEDS: ipratropium/albuterol 3ml nebule NEB SCH ×2 (15:17→19:42)
[2021-06-12] MEDS ORDERED: glucagon, human recombinant 1mg kit SUBCUT PRN (16:30)
[2021-06-12] MEDS ORDERED: MESSAGE TO PHARMACY PO ONE (16:30)
[2021-06-12] MEDS ORDERED: DEXTROSE 15 GM of carb/4 tabs (each vial/BOTTLE has 4 tablets) PO PRN ×2 (16:30)
[2021-06-12] MEDS ORDERED: dextrose 50%-water 50ml dispensing syringe IV PRN ×2 (16:30)
[2021-06-12] MEDS ORDERED: azithromycin/NS 500mg/250ml 250 ML IV ONE (16:30)
[2021-06-12 17:14] LABS: HEMOGLOBIN A1C 6.2 % (4.5-6.2)
--- NOTE | 2021-06-12 18:35 | NUR ---
Problems reprioritized. Patient report given, questions answered & plan of care reviewed with . Addendum: 06/13/21 at 0644 by Leonardo Fiore RN Problems reprioritized. Patient report given, questions answered & plan of care reviewed with Reid.
[2021-06-12 18:45] VITALS: BP 110/72
[2021-06-12] MEDS: methylPREDNISolone sod succ/PF 40mg inj. IV SCH (19:54)
[2021-06-12] MEDS: gabapentin 100mg capsule PO SCH (21:42)
[2021-06-12] MEDS: insulin glargine (Lantus) pen - multi-dose SQ SCH (21:42)
[2021-06-12 22:00] VITALS: BP 122/70
[2021-06-13] VITALS (7 sets, daily range): BP systolic 108–133; BP diastolic 60–84
--- NOTE | 2021-06-13 06:22 | NUR ---
Problems reprioritized. Patient report given to Elba DELGADO, questions answered & plan of care reviewed with .
--- NOTE | 2021-06-13 06:37 | NUR ---
Patient in room PCU 3013. I have received report from Robert and had the opportunity to ask questions and assume patient care.
[2021-06-13 07:50] LABS: BASOPHILS % (AUTO) 0.1 % (0-1); EOSINOPHILS % (AUTO) 0 % (0-6); HEMOGLOBIN 10.9 g/dl (12.0-16.0); LYMPHOCYTES # (AUTO) 1.3 X10'3 (1.1-4.8); LYMPHOCYTES % (AUTO) 6.3 % (21-51); MEAN CORPUSCULAR HEMOGLOBIN 26.5 PG (27.0-31.0); MEAN CORPUSCULAR VOLUME 82.8 FL (78-98); MEAN PLATELET VOLUME 8.5 FL (7.4-10.4); MONOCYTES # (AUTO) 0.6 X10'3 (0-0.9); MONOCYTES % (AUTO) 3.1 % (2-12); NEUTROPHILS # (AUTO) 18.1 X10'3 (1.8-7.7); NEUTROPHILS % (AUTO) 90.5 % (42-75); PLATELET COUNT 315 X10'3 (140-440); RED BLOOD COUNT 4.11 X10'6 (4.20-5.60); RED CELL DISTRIBUTION WIDTH 16.6 % (11.5-14.5); WHITE BLOOD COUNT 20.1 X10'3 (4.5-11.0)
[2021-06-13] MEDS: atorvastatin 10mg tablet PO SCH (07:59)
[2021-06-13] MEDS: PARoxetine 10mg tablet PO SCH (07:59)
[2021-06-13] MEDS: levoTHYROXINE 112mcg tablet PO SCH (07:59)
[2021-06-13] MEDS: K and/or MAG REPLACEMENT MC SCH ×2 (08:00→20:00)
[2021-06-13] MEDS: methylPREDNISolone sod succ/PF 40mg inj. IV SCH ×2 (08:02→20:08)
[2021-06-13] MEDS: docusate sod 100mg capsule PO SCH ×2 (08:02→20:07)
[2021-06-13] MEDS: metoprolol tartrate 50mg tablet PO SCH ×2 (08:02→20:09)
[2021-06-13] MEDS: heparin, porcine 5000 units/ml vial SQ SCH ×2 (08:03→20:10)
[2021-06-13 08:29] LABS: ALANINE AMINOTRANSFERASE 14 U/L (12-78); ALBUMIN 2.4 G/DL (3.4-5.0); ALBUMIN/GLOBULIN RATIO 0.5 (1.1-1.5); ALKALINE PHOSPHATASE 147 IU/L (46-116); ANION GAP 9 (8-16); ASPARTATE AMINO TRANSFERASE 13 U/L (10-37); BILIRUBIN,TOTAL 0.1 MG/DL (0.1-1.0); BLOOD UREA NITROGEN 30 MG/DL (7-18); BUN/CREATININE RATIO 30.6 (6.6-38.0); CALCIUM 8.8 MG/DL (8.5-10.1); CHLORIDE 101 MMOL/L (99-107); CREATININE 0.98 MG/DL (0.40-0.90); GLUCOSE 142 MG/DL (70-104); POTASSIUM 4.6 MMOL/L (3.5-5.1); SODIUM 141 MMOL/L (135-145); TOTAL CARBON DIOXIDE 31.3 MMOL/L (24-32); TOTAL PROTEIN 6.8 G/DL (6.4-8.2); eGFR 56 ML/MIN
[2021-06-13] MEDS: ipratropium/albuterol 3ml nebule NEB SCH ×3 (09:45→21:13)
[2021-06-13] MEDS: CefTRIAXone/D5W-Rocephin 1gm 50 ML IV SCH (11:02)
[2021-06-13] MEDS: azithromycin/NS 500mg/250ml 250 ML IV SCH (11:29)
[2021-06-13] MEDS: insulin Lispro (HumaLOG) vial - multi-dose SQ SCH (11:43)
--- NOTE | 2021-06-13 18:39 | NUR ---
Problems reprioritized. Patient report given, questions answered & plan of care reviewed with Raina .
[2021-06-13] MEDS: gabapentin 100mg capsule PO SCH (20:07)
[2021-06-13] MEDS: insulin glargine (Lantus) pen - multi-dose SQ SCH (21:48)
[2021-06-14 02:00] VITALS: BP 123/68
[2021-06-14 06:00] VITALS: BP 142/77
[2021-06-14 06:37] LABS: BASOPHILS % (AUTO) 0.1 % (0-1); EOSINOPHILS % (AUTO) 0 % (0-6); HEMOGLOBIN 10.9 g/dl (12.0-16.0); LYMPHOCYTES # (AUTO) 1.1 X10'3 (1.1-4.8); LYMPHOCYTES % (AUTO) 7.1 % (21-51); MEAN CORPUSCULAR HEMOGLOBIN 26.7 PG (27.0-31.0); MEAN CORPUSCULAR HGB CONC 32.2 g/dL (33.0-36.5); MEAN CORPUSCULAR VOLUME 82.8 FL (78-98); MEAN PLATELET VOLUME 8.7 FL (7.4-10.4); MONOCYTES # (AUTO) 0.6 X10'3 (0-0.9); MONOCYTES % (AUTO) 3.7 % (2-12); NEUTROPHILS # (AUTO) 13.8 X10'3 (1.8-7.7); NEUTROPHILS % (AUTO) 89.1 % (42-75); PLATELET COUNT 327 X10'3 (140-440); RED CELL DISTRIBUTION WIDTH 16.1 % (11.5-14.5); WHITE BLOOD COUNT 15.5 X10'3 (4.5-11.0)
[2021-06-14] MEDS: levoTHYROXINE 100mcg tablet PO SCH ×2 (07:00→08:46)
[2021-06-14 07:31] LABS: ALANINE AMINOTRANSFERASE 15 U/L (12-78); ALBUMIN 2.3 G/DL (3.4-5.0); ALBUMIN/GLOBULIN RATIO 0.5 (1.1-1.5); ALKALINE PHOSPHATASE 130 IU/L (46-116); ANION GAP 8 (8-16); ASPARTATE AMINO TRANSFERASE 15 U/L (10-37); BILIRUBIN,TOTAL 0.1 MG/DL (0.1-1.0); BLOOD UREA NITROGEN 33 MG/DL (7-18); BUN/CREATININE RATIO 37.9 (6.6-38.0); CALCIUM 8.8 MG/DL (8.5-10.1); CHLORIDE 102 MMOL/L (99-107); CREATININE 0.87 MG/DL (0.40-0.90); GLUCOSE 126 MG/DL (70-104); SODIUM 141 MMOL/L (135-145); TOTAL CARBON DIOXIDE 30.9 MMOL/L (24-32); TOTAL PROTEIN 6.5 G/DL (6.4-8.2); eGFR 65 ML/MIN
[2021-06-14] MEDS: ipratropium/albuterol 3ml nebule NEB SCH ×3 (07:45→20:38)
[2021-06-14] MEDS ORDERED: BUPRENORPHINE 20 MCG/HR TP SCH (08:00)
[2021-06-14] MEDS: K and/or MAG REPLACEMENT MC SCH ×2 (08:00→20:00)
[2021-06-14] MEDS: PARoxetine 10mg tablet PO SCH (08:38)
[2021-06-14] MEDS: metoprolol tartrate 50mg tablet PO SCH ×2 (08:38→19:20)
[2021-06-14] MEDS: atorvastatin 10mg tablet PO SCH (08:39)
[2021-06-14] MEDS: heparin, porcine 5000 units/ml vial SQ SCH ×2 (08:39→19:21)
[2021-06-14] MEDS: docusate sod 100mg capsule PO SCH ×2 (08:39→19:21)
[2021-06-14] MEDS: CefTRIAXone/D5W-Rocephin 1gm 50 ML IV SCH (08:40)
[2021-06-14] MEDS: methylPREDNISolone sod succ/PF 40mg inj. IV SCH ×2 (08:41→19:21)
[2021-06-14] MEDS: azithromycin/NS 500mg/250ml 250 ML IV SCH (09:02)
[2021-06-14] MEDS: insulin Lispro (HumaLOG) vial - multi-dose SQ SCH ×3 (09:20→19:17)
[2021-06-14 11:00] VITALS: BP 146/82
[2021-06-14] MEDS ORDERED: morphine 2 MG/ML inj. syringe IV PRN (11:30)
[2021-06-14 15:00] VITALS: BP 127/83
[2021-06-14 18:00] VITALS: BP 126/72
--- NOTE | 2021-06-14 18:33 | NUR ---
Problems reprioritized. Patient report given, questions answered & plan of care reviewed with Edu.
[2021-06-14] MEDS: insulin glargine (Lantus) pen - multi-dose SQ SCH (21:27)
[2021-06-14] MEDS: gabapentin 100mg capsule PO SCH (21:28)
[2021-06-14 22:00] VITALS: BP 146/91
[2021-06-14] MEDS: morphine 2 MG/ML inj. syringe IV PRN (22:21)
[2021-06-15 02:00] VITALS: BP 148/82
[2021-06-15 06:00] VITALS: BP 156/71
[2021-06-15 07:05] LABS: BASOPHILS % (AUTO) 0.2 % (0-1); EOSINOPHILS % (AUTO) 0 % (0-6); HEMATOCRIT 33.4 % (35.0-45.0); HEMOGLOBIN 10.7 g/dl (12.0-16.0); LYMPHOCYTES # (AUTO) 1.8 X10'3 (1.1-4.8); MEAN CORPUSCULAR HEMOGLOBIN 26.4 PG (27.0-31.0); MEAN CORPUSCULAR HGB CONC 32.1 g/dL (33.0-36.5); MEAN CORPUSCULAR VOLUME 82.3 FL (78-98); MEAN PLATELET VOLUME 8.5 FL (7.4-10.4); MONOCYTES # (AUTO) 0.8 X10'3 (0-0.9); MONOCYTES % (AUTO) 6.6 % (2-12); NEUTROPHILS # (AUTO) 10.1 X10'3 (1.8-7.7); NEUTROPHILS % (AUTO) 79.2 % (42-75); PLATELET COUNT 332 X10'3 (140-440); RED BLOOD COUNT 4.07 X10'6 (4.20-5.60); RED CELL DISTRIBUTION WIDTH 15.9 % (11.5-14.5); WHITE BLOOD COUNT 12.7 X10'3 (4.5-11.0)
[2021-06-15 07:20] LABS: ALANINE AMINOTRANSFERASE 16 U/L (12-78); ALBUMIN 2.3 G/DL (3.4-5.0); ALBUMIN/GLOBULIN RATIO 0.6 (1.1-1.5); ALKALINE PHOSPHATASE 118 IU/L (46-116); ANION GAP 5 (8-16); ASPARTATE AMINO TRANSFERASE 12 U/L (10-37); BILIRUBIN,TOTAL 0.1 MG/DL (0.1-1.0); BLOOD UREA NITROGEN 31 MG/DL (7-18); BUN/CREATININE RATIO 34.1 (6.6-38.0); CALCIUM 8.7 MG/DL (8.5-10.1); CHLORIDE 103 MMOL/L (99-107); CREATININE 0.91 MG/DL (0.40-0.90); GLUCOSE 111 MG/DL (70-104); POTASSIUM 5.1 MMOL/L (3.5-5.1); SODIUM 141 MMOL/L (135-145); TOTAL CARBON DIOXIDE 32.9 MMOL/L (24-32); TOTAL PROTEIN 6.2 G/DL (6.4-8.2); eGFR 61 ML/MIN
--- NOTE | 2021-06-15 07:22 | NUR ---
Patient in room PCU 3013. I have received report from Pam RN and had the opportunity to ask questions and assume patient care.
[2021-06-15] MEDS ORDERED: azithromycin 250mg tablet PO SCH (08:00)
[2021-06-15] MEDS ORDERED: predniSONE 20 mg tablet PO SCH (08:00)
[2021-06-15] MEDS: K and/or MAG REPLACEMENT MC SCH (08:00)
[2021-06-15] MEDS: ipratropium/albuterol 3ml nebule NEB SCH ×2 (08:02→14:04)
[2021-06-15] MEDS: docusate sod 100mg capsule PO SCH (08:11)
[2021-06-15] MEDS: CefTRIAXone/D5W-Rocephin 1gm 50 ML IV SCH (08:11)
[2021-06-15] MEDS: PARoxetine 10mg tablet PO SCH (08:11)
[2021-06-15 08:13] VITALS: BP_SYST 156
[2021-06-15] MEDS: atorvastatin 10mg tablet PO SCH (08:13)
[2021-06-15] MEDS: metoprolol tartrate 50mg tablet PO SCH (08:13)
[2021-06-15] MEDS: heparin, porcine 5000 units/ml vial SQ SCH (08:14)
[2021-06-15] MEDS: morphine 2 MG/ML inj. syringe IV PRN (08:14)
[2021-06-15] MEDS ORDERED: PRED10TA23 PO (10:14)
[2021-06-15] MEDS ORDERED: CEFD300C3 PO (10:14)
--- NOTE | 2021-06-15 11:45 | NUR ---
assisting RN with pt care, pt is going to be dc'd home, she is trying to contact her daughter, pt said she needs her to bring 02 tank and clothes,
--- NOTE | 2021-06-15 12:34 | NUR ---
pt still trying to reach family, no answer yet, gave pt incentive inspirometer, she demonstrated proper use of equipment, "I have used it before"
--- NOTE | 2021-06-15 12:48 | NUR ---
left message on phone for pt's daughter, Sunday, to call PCU, pt is ready to go home,
--- NOTE | 2021-06-15 15:22 | NUR ---
Pt stable for discharge per MD orders. All discharge orders reviewed with patient, all questions answered. Medications sent e script to pharmacy. PIV discontinued, cannula intact. Tele discontinued. Patient escorted to lobby via nursing staff, and picked up by family member in private vehicle.
== END 2021-06-15 14:50 | disposition home health service (06) | DRG 871 ==
LOC: ER 22:38 → ED HOLD 06-12 02:03 → UNDOADMIN 06-12 02:40 → ED HOLD 06-12 06:35 → PCU 3S 06-12 06:35
PROVIDERS: ADMIT Internal Medicine; ATTEND Family Medicine
PROC: BW211ZZ Computerized Tomography (CT Scan) of Abdomen and Pelvis using Low Osmolar Contrast (ICD-10-PCS; principal; 2021-06-12)
PROC: B32T1ZZ Computerized Tomography (CT Scan) of Left Pulmonary Artery using Low Osmolar Contrast (ICD-10-PCS; 2021-06-12)
PROC: B3201ZZ Computerized Tomography (CT Scan) of Thoracic Aorta using Low Osmolar Contrast (ICD-10-PCS; 2021-06-12)
PROC: B32S1ZZ Computerized Tomography (CT Scan) of Right Pulmonary Artery using Low Osmolar Contrast (ICD-10-PCS; 2021-06-12)
DX: A41.9 Sepsis, unspecified organism (principal); J18.9 Pneumonia, unspecified organism; J96.20 Acute and chronic respiratory failure, unspecified whether with hypoxia or hypercapnia; J44.1 Chronic obstructive pulmonary disease with (acute) exacerbation; J44.0 Chronic obstructive pulmonary disease with (acute) lower respiratory infection; J20.9 Acute bronchitis, unspecified; E11.42 Type 2 diabetes mellitus with diabetic polyneuropathy; E78.5 Hyperlipidemia, unspecified; I10 Essential (primary) hypertension; E03.9 Hypothyroidism, unspecified; Z20.822 Contact with and (suspected) exposure to COVID-19; E78.00 Pure hypercholesterolemia, unspecified; F32.A Depression, unspecified; Z87.891 Personal history of nicotine dependence; Z88.8 Allergy status to other drugs, medicaments and biological substances; Z79.899 Other long term (current) drug therapy; Z88.5 Allergy status to narcotic agent
CPT/HCPCS: 36415; 36600; 71045; 71275; 74177; 80053; 81001; 82803; 82948; 83036; 83605; 83735; 83880; 84145; 84439; 84443; 84484; 85007; 85018; 85025; 85379; 87040; 87635; 93005; 94640; 94667; 94760; 97116; 97161; 97530; 99285; A7015; C9803; G0378; J0456; J0696; J1644; J1815; J2270; J2920; J2930; J7512; Q9967

== ENCOUNTER 2021-08-10 16:52 | Inpatient (IN) | payer MEDICARE, OTHER ==
[~2021-08-10] VITALS: Ht 162.6 cm; Wt 81.8 kg
[~2021-08-10 16:52] MED LIST changes: -ALBU0.63 INH; +BUPR1PAT23 TOP; -BUSP5TAB3 PO; +FLUT1BLS16 INH; +GABA-530 PO; -LEVO100T PO; +LEVO112T39 PO; -OXYB-58 PO; +PARO10TA4 PO; -SERT-432 PO; -UMEC1DIS INH
[2021-08-10 19:33] LABS: BASOPHILS % (AUTO) 0.4 % (0-1); EOSINOPHILS # (AUTO) 0.1 X10'3 (0-0.9); EOSINOPHILS % (AUTO) 0.7 % (0-6); HEMATOCRIT 34.5 % (35.0-45.0); HEMOGLOBIN 11.1 g/dl (12.0-16.0); LYMPHOCYTES # (AUTO) 0.8 X10'3 (1.1-4.8); LYMPHOCYTES % (AUTO) 7.7 % (21-51); MEAN CORPUSCULAR HEMOGLOBIN 27.2 PG (27.0-31.0); MEAN CORPUSCULAR HGB CONC 32.3 g/dL (33.0-36.5); MEAN CORPUSCULAR VOLUME 84.2 FL (78-98); MEAN PLATELET VOLUME 7.8 FL (7.4-10.4); MONOCYTES # (AUTO) 0.6 X10'3 (0-0.9); MONOCYTES % (AUTO) 5.8 % (2-12); NEUTROPHILS # (AUTO) 8.3 X10'3 (1.8-7.7); NEUTROPHILS % (AUTO) 85.4 % (42-75); PLATELET COUNT 288 X10'3 (140-440); RED CELL DISTRIBUTION WIDTH 16.9 % (11.5-14.5); WHITE BLOOD COUNT 9.8 X10'3 (4.5-11.0)
[2021-08-10 19:45] LABS: ALANINE AMINOTRANSFERASE 14 U/L (12-78); ALBUMIN/GLOBULIN RATIO 0.8 (1.1-1.5); ALKALINE PHOSPHATASE 105 IU/L (46-116); ANION GAP 3 (8-16); ASPARTATE AMINO TRANSFERASE 16 U/L (10-37); BILIRUBIN,TOTAL 0.4 MG/DL (0.1-1.0); BLOOD UREA NITROGEN 15 MG/DL (7-18); BUN/CREATININE RATIO 14.7 (6.6-38.0); CHLORIDE 102 MMOL/L (99-107); CREATININE 1.02 MG/DL (0.40-0.90); GLUCOSE 107 MG/DL (70-104); SODIUM 142 MMOL/L (135-145); TOTAL CARBON DIOXIDE 36.7 MMOL/L (24-32); eGFR 54 ML/MIN
[2021-08-11 01:13] LABS: URINE AMPHETAMINE SCREEN NEGATIVE (Neg); URINE BARBITUATE SCREEN NEGATIVE (Neg); URINE BENZODIAZEPINES SCREEN NEGATIVE (Neg); URINE CANNABINOID SCREEN POSITIVE (Neg); URINE COCAINE SCREEN NEGATIVE (Neg); URINE METHADONE SCREEN NEGATIVE (Neg); URINE OPIATE SCREEN POSITIVE (Neg); URINE PHENCYCLIDINE SCREEN NEGATIVE (Neg)
[2021-08-11] MEDS ORDERED: morphine 4 MG/ML inj SYRINge IV ONE (01:55)
[2021-08-11] MEDS ORDERED: normal saline 1000ml 1,000 ML IV ONE ×2 (01:55→11:35)
[2021-08-11] MEDS ORDERED: iohexol 350MG/ML 100ml bottle IV ONE (03:34)
--- NOTE | 2021-08-11 04:39 | NUR ---
Kristie (Grand Daughter) [phone] Daisha (Daughter) [phone]
[2021-08-11] MEDS ORDERED: albuterol 2.5 MG/3 ML nebule NEB ONE (05:40)
--- NOTE | 2021-08-11 06:55 | NUR ---
Assisted pt to bedside commode, urine obtained. Pt safely back to bed. Alert & oriented x4 at this time.
[2021-08-11 07:14] LABS: CLARITY,URINE CLEAR (Clear); COLOR,URINE YELLOW (Yellow); GLUCOSE, URINE NEGATIVE (Neg); KETONES,URINE TRACE mg/dl (Neg); LEUKOCYTE ESTERASE ,URINE NEGATIVE (Neg); NITRITES, URINE NEGATIVE (Neg); OCCULT BLOOD,URINE TRACE-INTACT (Neg); PH,URINE 6.5 (4.8-8.0); PROTEIN,URINE NEGATIVE (Neg); UROBILINOGEN,URINE 0.2 E.U/dL (0.2-1.0)
[2021-08-11 07:18] LABS: UA COLLECTION TYPE STRAIGHT CATH
[2021-08-11 07:22] LABS: MUCUS STRANDS FEW /LPF (Neg)
[2021-08-11 07:23] LABS: SQUAMOUS EPITHELIAL CELL,UR FEW /LPF (FEW)
[2021-08-11 07:24] LABS: TRANSITIONAL EPI CELLS,URINE FEW /HPF
[2021-08-11 07:25] LABS: BACTERIA,URINE FEW /HPF (Neg); WBC,URINE 0-4 /HPF (0-4)
--- NOTE | 2021-08-11 07:30 | NUR ---
Discussed pt's HR with EDMD, no new orders at this time.
--- NOTE | 2021-08-11 09:10 | NUR ---
Pt resting comfortably, in NAD.
--- NOTE | 2021-08-11 09:24 | NUR ---
Discussed plan for pt and HR with OPAL Zarate. TSH ordered. No other new orders at this time.
[2021-08-11] MEDS ORDERED: metoprolol tartrate 50mg tablet PO ONE (11:35)
--- NOTE | 2021-08-11 11:40 | NUR ---
Admitting hospitalist Dr. Jacobo at bedside, orders received.
[2021-08-11 11:46] LABS: CREATINE KINASE 34 U/L (26-192)
[2021-08-11 12:46] LABS: ABG BASE EXCESS 5.8 mmol/L (-2.0-2.0); ABG HCO3 32.5 mmol/L (22.0-26.0); ABG OXYGEN SATURATION 88.2 % (94-97); ABG PCO2 (T) 57.9 mmHg (32.0-45.0); ABG PO2 (T) 57.6 mmHg (75.0-100.0); ALLEN'S TEST POSITIVE; FCOHb 0.8 % (0.0-3.9); FLOW 2 L/min; FMetHb 0.1 % (0.0-1.5); FO2Hb 87.4 % (94-97); TOTAL HEMOGLOBIN 11.2 G/dl (12.0-16.0)
[2021-08-11] MEDS ORDERED: ipratropium/albuterol 3ml nebule NEB PRN (13:15)
[2021-08-11] MEDS ORDERED: magnesium 4gm in 100ml NS 100 ML IV PRN (13:15)
[2021-08-11] MEDS ORDERED: hydrALAZINE 20mg/ml inj. IV PRN (13:15)
[2021-08-11] MEDS ORDERED: potassium Cl 20 mEq SR tablet PO PRN ×2 (13:15)
[2021-08-11] MEDS ORDERED: magnesium hydroxide 30ml (MOM) UD suspension PO PRN (13:15)
[2021-08-11] MEDS ORDERED: mag hydrox/Alum hydrox/simeth 30ml oral suspension PO PRN (13:15)
[2021-08-11] MEDS ORDERED: hydrALAZINE 20mg/ml inj. IV ONE (13:15)
[2021-08-11] MEDS ORDERED: ondansetron/PF 4mg/2ml inj IV PRN (13:15)
[2021-08-11] MEDS ORDERED: acetaminophen 325mg tablet PO PRN (13:15)
[2021-08-11] MEDS ORDERED: magnesium 2GM in 50ml NS 50 ML IV PRN (13:15)
[2021-08-11] MEDS ORDERED: albuterol 2.5 MG/3 ML nebule NEB PRN (13:15)
[2021-08-11] MEDS ORDERED: potassium CL 10mEq/100ml bag 100 ML IV PRN (13:15)
[2021-08-11] MEDS ORDERED: BENZ-49 PO (13:34)
[2021-08-11] MEDS: methylPREDNISolone sod succ 125mg/2ml vial IV SCH ×2 (15:23→23:40)
[2021-08-11] MEDS ORDERED: cyclobenzaprine 10mg tablet PO PRN (16:20)
[2021-08-11] MEDS ORDERED: benzonatate 100mg capsule PO PRN (16:20)
[2021-08-11] MEDS ORDERED: BUPR-297 PO (16:45)
--- NOTE | 2021-08-11 17:55 | NUR ---
Pt complaining of L foot pain. Contacted Dr. Jacobo, orders received for pain medication.
[2021-08-11] MEDS ORDERED: oxyCODONE/APAP 5-325mg tablet PO PRN (18:00)
[2021-08-11] MEDS: K and/or MAG REPLACEMENT MC SCH (20:00)
[2021-08-11] MEDS: docusate sod 100mg capsule PO SCH (20:00)
[2021-08-11] MEDS ORDERED: enoxaparin 40mg/0.4ml syringe SQ SCH (20:00)
[2021-08-11] MEDS: budesonide 0.5mg/2ml UD nebule IH SCH ×2 (21:00→21:41)
[2021-08-11] MEDS ORDERED: gabapentin 100mg capsule PO SCH (21:00)
[2021-08-11] MEDS: ipratropium/albuterol 3ml nebule IH SCH (21:41)
[2021-08-11] MEDS: metoprolol tartrate 50mg tablet PO SCH (22:03)
[2021-08-12] MEDS: ipratropium/albuterol 3ml nebule IH SCH ×3 (03:05→14:09)
[2021-08-12 03:40] VITALS: BP 172/109
[2021-08-12 04:32] VITALS: BP 157/83
[2021-08-12] MEDS: oxyCODONE/APAP 10/325mg tablet PO PRN ×2 (04:46→11:31)
[2021-08-12 06:00] VITALS: BP 138/83
--- NOTE | 2021-08-12 06:19 | NUR ---
Patient in room PCU 3014. I have received report from Lo DELGADO and had the opportunity to ask questions and assume patient care.
[2021-08-12 06:52] LABS: BASOPHILS % (AUTO) 0.2 % (0-1); EOSINOPHILS % (AUTO) 0 % (0-6); HEMATOCRIT 40.1 % (35.0-45.0); LYMPHOCYTES # (AUTO) 0.7 X10'3 (1.1-4.8); LYMPHOCYTES % (AUTO) 11.7 % (21-51); MEAN CORPUSCULAR HEMOGLOBIN 26.8 PG (27.0-31.0); MEAN CORPUSCULAR HGB CONC 32.4 g/dL (33.0-36.5); MEAN CORPUSCULAR VOLUME 82.8 FL (78-98); MEAN PLATELET VOLUME 8.5 FL (7.4-10.4); MONOCYTES # (AUTO) 0.1 X10'3 (0-0.9); MONOCYTES % (AUTO) 1.2 % (2-12); NEUTROPHILS # (AUTO) 5.5 X10'3 (1.8-7.7); NEUTROPHILS % (AUTO) 86.9 % (42-75); PLATELET COUNT 327 X10'3 (140-440); RED BLOOD COUNT 4.84 X10'6 (4.20-5.60); RED CELL DISTRIBUTION WIDTH 17.8 % (11.5-14.5); WHITE BLOOD COUNT 6.3 X10'3 (4.5-11.0)
--- NOTE | 2021-08-12 07:02 | NUR ---
Diabetes consult: No hx of DM mentioned in MD notes, A1c 5.4 does not qualify as DM per ADA guidelines. DM ed not indicated at this time Addendum: 08/12/21 at [address] Amended: Links added.
[2021-08-12 07:16] LABS: ALANINE AMINOTRANSFERASE 12 U/L (12-78); ALBUMIN 2.7 G/DL (3.4-5.0); ALBUMIN/GLOBULIN RATIO 0.6 (1.1-1.5); ALKALINE PHOSPHATASE 107 IU/L (46-116); ANION GAP 8 (8-16); ASPARTATE AMINO TRANSFERASE 14 U/L (10-37); BILIRUBIN,TOTAL 0.3 MG/DL (0.1-1.0); BLOOD UREA NITROGEN 15 MG/DL (7-18); BUN/CREATININE RATIO 22.4 (6.6-38.0); CALCIUM 8.8 MG/DL (8.5-10.1); CHLORIDE 101 MMOL/L (99-107); CREATININE 0.67 MG/DL (0.40-0.90); GLUCOSE 146 MG/DL (70-104); MAGNESIUM 1.9 MG/DL (1.5-2.4); POTASSIUM 3.6 MMOL/L (3.5-5.1); SODIUM 138 MMOL/L (135-145); TOTAL CARBON DIOXIDE 28.9 MMOL/L (24-32); TOTAL PROTEIN 7.3 G/DL (6.4-8.2); eGFR 88 ML/MIN
[2021-08-12] MEDS ORDERED: non-formulary drug (Fluticasone/Umeclidin/Vilanter (Trelegy Ellipta 200-62.5-25) 1 PUFFS) INH SCH (08:00)
[2021-08-12] MEDS ORDERED: levoTHYROXINE 112mcg tablet PO SCH (08:00)
[2021-08-12] MEDS ORDERED: atorvastatin 10mg tablet PO SCH (08:00)
[2021-08-12] MEDS: K and/or MAG REPLACEMENT MC SCH (08:00)
[2021-08-12] MEDS ORDERED: PARoxetine 10mg tablet PO SCH (08:00)
[2021-08-12] MEDS: budesonide 0.5mg/2ml UD nebule IH SCH (08:02)
[2021-08-12] MEDS: methylPREDNISolone sod succ 125mg/2ml vial IV SCH (09:18)
[2021-08-12] MEDS: metoprolol tartrate 50mg tablet PO SCH (09:23)
[2021-08-12] MEDS: docusate sod 100mg capsule PO SCH (09:31)
[2021-08-12 12:05] LABS: ABG BASE EXCESS 3.2 mmol/L (-2.0-2.0); ABG HCO3 27.4 mmol/L (22.0-26.0); ABG OXYGEN SATURATION 91.5 % (94-97); ABG PCO2 (T) 40.4 mmHg (32.0-45.0); ABG PO2 (T) 58.2 mmHg (75.0-100.0); ALLEN'S TEST POSITIVE; FCOHb 0.3 % (0.0-3.9); FLOW 2 L/min; FMetHb 0.1 % (0.0-1.5); FO2Hb 91.1 % (94-97); TOTAL HEMOGLOBIN 13.5 G/dl (12.0-16.0)
--- NOTE | 2021-08-12 12:50 | NUR ---
Paged Dr. Gay regarding ABG results and PT doesn't want to discharge from their standpoint. PAGER ID: [phone] MESSAGE: [phone], Serg Oconnell. Pts ABG is back, PT said they didn't want to clear the pt today. She was very dizzy when she stood up. No drop in BP or sats. Judith U [id number].
[2021-08-12] MEDS ORDERED: PRED10TA23 PO (13:24)
[2021-08-12] MEDS ORDERED: IPRA3AMP9 NEB (13:24)
[2021-08-12] MEDS ORDERED: LEVO500T90 PO (13:24)
[2021-08-12 15:00] VITALS: BP 123/69
--- NOTE | 2021-08-12 17:51 | NUR ---
Patient stable for discharge per Dr. Gay orders. All discharge instructions reviewed with patient and all questions answered. New prescriptions e scripted into pharmacy. PIV discontinued, cannula intact. Tele discontinued. Belongings collected and sent with patient. Patient wheeled to lobby via nursing staff, picked up by daughter.
[2021-08-17] MEDS ORDERED: BUPRENORPHINE 20 MCG/HR TOP SCH (16:20)
== END 2021-08-12 16:49 | disposition home or self-care (01) | DRG 917 ==
LOC: ER 16:54 → ED HOLD 08-11 13:18 → PCU 3S 08-11 22:57
PROVIDERS: ADMIT Family Medicine; ATTEND Family Medicine
PROC: B32T1ZZ Computerized Tomography (CT Scan) of Left Pulmonary Artery using Low Osmolar Contrast (ICD-10-PCS; principal; 2021-08-11)
PROC: B3201ZZ Computerized Tomography (CT Scan) of Thoracic Aorta using Low Osmolar Contrast (ICD-10-PCS; 2021-08-11)
PROC: B32S1ZZ Computerized Tomography (CT Scan) of Right Pulmonary Artery using Low Osmolar Contrast (ICD-10-PCS; 2021-08-11)
DX: T40.711A Poisoning by cannabis, accidental (unintentional), initial encounter (principal); G92.8 Other toxic encephalopathy; J44.1 Chronic obstructive pulmonary disease with (acute) exacerbation; J96.10 Chronic respiratory failure, unspecified whether with hypoxia or hypercapnia; E78.00 Pure hypercholesterolemia, unspecified; F32.A Depression, unspecified; M79.672 Pain in left foot; R00.0 Tachycardia, unspecified; E78.5 Hyperlipidemia, unspecified; G89.29 Other chronic pain; E03.9 Hypothyroidism, unspecified; G62.9 Polyneuropathy, unspecified; I10 Essential (primary) hypertension; Y92.89 Other specified places as the place of occurrence of the external cause; Z88.5 Allergy status to narcotic agent; Z88.8 Allergy status to other drugs, medicaments and biological substances; Z79.899 Other long term (current) drug therapy; Z71.6 Tobacco abuse counseling
CPT/HCPCS: 36415; 36600; 70450; 71045; 71275; 73630; 80053; 80305; 81001; 82550; 82553; 82803; 83036; 83605; 83735; 83880; 84145; 84443; 84484; 85018; 85025; 87040; 87081; 93005; 94640; 94760; 97116; 97161; 97530; 99285; G0378; J0360; J1650; J2270; J2405; J2930; J7030; Q9967